=== PATIENT | female | born 1990 | race Caucasian/White ===

== ENCOUNTER 2022-07-16 09:51 | Outpatient (CLI) | payer BC, SELFPAY ==
[2022-07-16 14:24] LABS: TSH With Reflex to FT4* 0.522 uIU/mL (0.270-4.200)
== END 2022-07-16 09:52 | disposition home or self-care (01) ==
PROVIDERS: Visit Provider Registered Nurse
DX: N92.0 Excessive and frequent menstruation with regular cycle (principal)
CPT/HCPCS: 84443

== ENCOUNTER 2022-08-05 10:25 | Outpatient (CLI) | payer BC, SELFPAY ==
--- NOTE | 2022-08-05 10:45 | CRLHL7_ITS ---
For Patients: As a result of the Century Cures Act, medical imaging exams and procedure reports are released immediately into your electronic medical record. You may view this report before your referring provider. If you have questions, please contact your health care provider. INDICATION: 31 year-old female. Menorrhagia. TECHNIQUE: Transabdominal and transvaginal pelvic ultrasound. Grayscale images were acquired of the uterus and ovaries. FINDINGS: The uterus measures 7.5 x 4.8 x 4 cm. The endometrial stripe measures 12.4 mm. This can be normal in a premenopausal female. Small cervical nabothian cysts. The right ovary measures 2.6 x 1.8 x 1.6 cm. The left ovary measures 3.0 x 1.9 x 1.6 cm. Blood flow is identified in the ovaries. Trace free pelvic fluid likely physiologic. IMPRESSION: Normal transabdominal and transvaginal pelvic ultrasound. Dictated by Jesse Griffith MD @ 08/05/2022 11:19:31 AM (Electronically Signed)
== END 2022-08-05 10:26 | disposition home or self-care (01) ==
PROVIDERS: Visit Provider Registered Nurse
DX: N92.0 Excessive and frequent menstruation with regular cycle (principal)
CPT/HCPCS: 76830; 76856

== ENCOUNTER 2022-08-27 09:52 | Outpatient (CLI) | payer BC, SELFPAY | END 2022-08-27 09:53 | disposition home or self-care (01) | LOC: FRMREF 09:52 | PROVIDERS: Visit Provider Family Medicine | DX: Z00.00 Encounter for general adult medical examination without abnormal findings (principal); M32.9 Systemic lupus erythematosus, unspecified | CPT/HCPCS: 80053 ==

== ENCOUNTER 2022-09-15 09:06 | Day surgery (SDC) | payer BC, SELFPAY ==
[2022-09-15] MEDS: SODIUM CHLORIDE 0.9 % (FLUSH) 10 ML SYRINGE IVF (09:25)
[2022-09-15] MEDS: LACTATED RINGERS 1000 ML 1,000 ML 100 ML IV (09:25)
[2022-09-15 09:34] VITALS: BP 123/59; PULSE 87; RESP 16; TEMP 36.6; O2SAT 97; BMI 30.8
--- NOTE | 2022-09-15 09:40 | SUR.PREOP ---
Patient provided home covid negative results to RN.
[2022-09-15 09:47] LABS: Ur HCG Qualitative* Negative (Negative)
--- NOTE | 2022-09-15 09:52 | P.PCN_ITS ---
Procedure Note Time Seen by Provider: 09:52 Date Seen: 09/15/22 Will [facility] bill your pro fee for this procedure?: Yes Procedure: Preoperative diagnosis: 32 yo with menorrhagia and thickened endometrium. Postoperative diagnosis: Same. Suspected polyps and R fundal synechiae Procedure: Hysteroscopy, dilation and curettage, endometrial ablation. Anesthesia: MAC and paracervical block. Surgeon: Taylor Nassar MD Assist: None Estimated blood loss: 30 mL IV Fluid: 800 mL Specimen: Endometrial curettings, sent to path. Findings: On exam under anesthesia: The cervix and vagina appear normal. The uterus was anteverted position, approximately 8 week size, mobile and without masses or nodularity palpable. Adnexa were without mass or fullness palpable bilaterally. On hysteroscopy: multiple polypoid masses and multiple thin and 1 thick synechiae in the right fundus. No other abnormalities noted. The uterus sounded to 9 cm. Cervical length 4 cm. Cavity length: 5 cm. The patient had a severe uterine infection during labor with her 1 child was in the hospital for 10 days for treatment. This uterine infection was the likely cause of the synechiae seen on exam and taken down during the procedure. Procedure: Fiorella was taken to the operating room where conscious sedation was found to be adequate. She was placed in a dorsal lithotomy position and an exam under anesthesia was performed with the findings stated above. She was then prepped and draped in a normal sterile manner. An a bivalve is sterile speculum was placed in the vaginal canal. A paracervical block was placed using 0.5% Marcaine: 10 mL were injected at the 4 and 8 o'clock positions on the cervix. A long Allis clamp was placed on the anterior lip of the cervix. The cervix was then dilated to Hegar 6. the Allis clamp kept pulling off of the cervix so a single-tooth tenaculum was placed. Uterus sounded to 9 cm. The cervix measured for cm. There for the cavity length was 5 cm. The Truclear hysteroscope was advanced into the uterus. A diagnostic hysteroscopy performed with normal saline as the insufflation medium. Findings are stated above. The Truclear incisor was then advanced through the camera. The curettage performed with this incisor. The synechiae were taken down w/ a combination of the Truclear morcellator and hysteroscopic scissors. The curettage took approximately 4 min. The cavity appeared normal once the curettage was performed completed. Total amount of saline used: 2495 mL. Deficit: 215 mL The hysteroscope was removed. The cervix was then dilated to Hegar 8. The Angy device was advanced into the uterus. The cavity check was completed and the ablation took place over 2 min. The Angy was removed, the hysteroscope readvanced to document ablation of the entire cavity. The hysteroscope was then removed. The Allis clamp removed from the anterior lip of the cervix. silver nitrate and 1 figure of 8 suture using 3-0 Vicryl were used to obtain hemostasis The patient tolerated this procedure well. Sponge, lap and instrument counts were correct x2 at the end of the procedure and the patient was taken to the recovery area in stable condition. Patient received 30 mg of Toradol IV and 2 gm of Ancef prior to the procedure.
[2022-09-15 11:40] VITALS: BP 125/74; PULSE 73; RESP 14; TEMP 37.2; O2SAT 96
--- NOTE | 2022-09-15 11:44 | W.ANESCHARGE ---
Anesthesia Charges Start Date/Time Anesthesia Start Date: 09/15/22 Anesthesia Start Time: 10:41 Stop Date/Time Anesthesia Stop Date: 09/15/22 Anesthesia Stop Time: 11:43
[2022-09-15 11:45] VITALS: BP 122/74; PULSE 67; RESP 16; O2SAT 96
[2022-09-15 12:00] VITALS: BP 127/82; PULSE 68; RESP 16; O2SAT 95
[2022-09-15] MEDS: fentaNYL 100 MCG/2 ML inj 50 MCG IVP (12:00)
--- NOTE | 2022-09-15 12:00 | W.ANESCHARGE ---
Anesthesia Charges Start Date/Time Anesthesia Start Date: 09/15/22 Anesthesia Start Time: 10:41 Stop Date/Time Anesthesia Stop Date: 09/15/22 Anesthesia Stop Time: 11:43
[2022-09-15 12:15] VITALS: BP 112/62; PULSE 74; RESP 16; O2SAT 95
== END 2022-09-15 12:32 | disposition home or self-care (01) ==
PROVIDERS: PCP Family Medicine; Visit Provider Obstetrics & Gynecology
PROC: 0UF98ZZ Fragmentation in Uterus, Via Natural or Artificial Opening Endoscopic (ICD-10-PCS; CPT 58563; principal; 2022-09-15 10:30)
DX: N92.0 Excessive and frequent menstruation with regular cycle (principal); R93.89 Abnormal findings on diagnostic imaging of other specified body structures
CPT/HCPCS: 58563; 00952; 81025; J1100; J1885; J2250; J2405; J2704; J3010; J7120

== ENCOUNTER 2023-09-16 11:02 | Outpatient (CLI) | payer BC, SELFPAY | END 2023-09-16 11:03 | disposition home or self-care (01) | PROVIDERS: PCP Family Medicine; Visit Provider Family Medicine | DX: N92.0 Excessive and frequent menstruation with regular cycle (principal); I47.10 Supraventricular tachycardia, unspecified | CPT/HCPCS: 80053; 84443; 87086 ==

== ENCOUNTER 2023-09-28 07:34 | Day surgery (SDC) | payer BC, SELFPAY ==
[2023-09-28] VITALS (20 sets, daily range): BP systolic 110–134; BP diastolic 70–82; PULSE 61–81; RESP 12–18; TEMP 36.3–37.9; O2SAT 97–100; BMI 26.2
--- OUTSIDE RECORDS SUMMARY | 2023-09-28 07:35 | XMS_ITS | Referral Summary ---
Author Name Unknown Organization [facility] Address [address] [place] [address] Care Team Providers Care Open Tenter Operator Name Role Phone Diego Castañeda MD Unavailable Medications Medication Sig Dispensed Refills Start Date End Date Status etonogestrel-ethinyl estradiol (NUVARING) 0.12-0.015 MG/24HR vaginal ringIndications:Abnor mal uterine bleeding NuvaRing 0.12 mg-0.015 mg/24 hr vaginal Insert 1 vaginal ring every month by vaginal route. 3 each 3 06/25/2021 Active Social History Tobacco Use Types Packs/Day Years Used Date Smoking Tobacco: Never Smokeless Tobacco: Never Alcohol Use Standard Drinks/Week Comments Yes 0 (1 standard drink = 0.6 oz pur e alcohol) occ PHQ-2 Answer Date Recorded PHQ-2 Score 1 06/25/2021 Adolescent Education Answer Date Record ed Getting School Help Needed Not on file 02/27 Sex and Gender Information Value Date Recorded Sex Assigned at Not on file Gender Identity Not on file Sexual Orientation Not on file Last Filed Vital Signs Vital Sign Reading Time Taken Comments Blood Pressure 106/84 06/25/2021 10:22 AM RESIDENTIAL SALES EXECUTIVE Pulse 75 06/25/2021 10:22 AM RESIDENTIAL SALES EXECUTIVE Temperature 36.8 ??C (98.3 ??F) 06/25/2021 10:[address] Respiratory Rate 16 06/25/2021 10:22 AM RESIDENTIAL SALES EXECUTIVE Oxygen Saturation 98% 06/25/2021 10:22 AM RESIDENTIAL SALES EXECUTIVE Inhaled Oxygen Concentration - - Weight 84.4 kg (186 lb) 06/25/2021 10:22 AM RESIDENTIAL SALES EXECUTIVE Height 172.7 cm (5' 8) 06/25/2021 10:22 AM RESIDENTIAL SALES EXECUTIVE Body Mass Index 28.28 06/25/2021 10:22 AM RESIDENTIAL SALES EXECUTIVE Plan of Treatment Not on file Procedures Procedure Name Priority Date/Time Associated Diagnosis Comments LAB RESULT - HIM SCAN 08/25/2023 12:00 AM CDT from Last 3 Months Results * LAB RESULT - HIM SCAN (08/25/2023 12:00 AM CDT) 08/25/2023 Provider Outside NON-BEAKER LAB TE STING from Last 3 Months Care Teams Open Tenter Operator Relationship Specialty Start Date End Date Diego Castañeda [place] [address] [place] [address] Assigned PCP 05/29/21
--- OUTSIDE RECORDS SUMMARY | 2023-09-28 07:35 | XMS_ITS | Clinical Summary ---
Author Name Unknown Organization [facility] Address [address] [place] [address] Care Team Providers Care Parts Coordinator Name Role Phone Diego Castañeda MD Unavailable [...] Comments Blood Pressure 106/84 06/25/2021 10:22 AM CAPTAIN ROOM SERVICE Pulse 75 06/25/2021 10:22 AM CAPTAIN ROOM SERVICE Temperature 36.8 ??C (98.3 ??F) 06/25/2021 10:[address] Respiratory Rate 16 06/25/2021 10:22 AM CAPTAIN ROOM SERVICE Oxygen Saturation 98% 06/25/2021 10:22 AM CAPTAIN ROOM SERVICE Inhaled Oxygen Concentration - - Weight 84.4 kg (186 lb) 06/25/2021 10:22 AM CAPTAIN ROOM SERVICE Height 172.7 cm (5' 8) 06/25/2021 10:22 AM CAPTAIN ROOM SERVICE Body Mass Index 28.28 06/25/2021 10:22 AM CAPTAIN ROOM SERVICE Plan of Treatment Health Maintenance Due Date Last Done Comments ADVANCE CARE PLANNING 1989 ANNUAL REVIEW OF HM ORDERS 1989 HIV SCREENING 2004 HEPATITIS C SCREENING 09/02/2007 HEPATITIS B IMMUNIZATION (1 of 3 - 19+ 3-dose series) 2008 DTAP/TDAP/TD IMMUNIZATION (1 - Tdap) 2014 YEARLY PREVENTIVE VISIT 04/07/2022 04/07/20 21, 12/13/2019 PAP 12/12/2022 12/13/2019, 12/13/2019 COVID-19 Vaccine (4 - 2022-2 4 season) 2023 04/09/2021, 09/18/2020, 08/24/2020 INFLUENZA VACCINE (#1) 2023 06/08/2022 PHQ-2 (once per calendar year) 2023 06/25/2021 HPV IMMUNIZATION Aged Out No longer e ligible based on patient's age to complete this topic IPV IMMUNIZATION Aged Out No longer e ligible based on patient's age to complete this topic MENINGITIS IMMUNIZATION Aged Out No l onger eligible based on patient's age to complete this topic Pneumococcal Vaccine: Pediatrics (0 to 5 Years) and At-Risk Patients (6 to 64 Years) Aged Out No longer eligible b ased on patient's age to complete this topic RSV MONOCLONAL ANTIBODY Aged Out No l onger eligible based on patient's age to complete this topic Procedures Procedure Name Priority Date/Time Associated Diagnosis Comments LAB RESULT - HIM SCAN 08/25/2023 12:00 AM CDT from Last 3 Months Results * LAB RESULT - HIM SCAN (08/25/2023 12:00 AM CDT) 08/25/2023 Provider Outside NON-BEAKER LAB TE STING from Last 3 Months Care Teams Parts Coordinator Relationship Specialty Start Date End Date Diego Castañeda [place] [id number] [place] [address] Assigned PCP 05/29/21
--- OUTSIDE RECORDS SUMMARY | 2023-09-28 07:36 | XMS_ITS | Continuity of Care Document ---
Author Name Unknown Organization [facility] Address [address] [place] [address] Phone Care Team Providers Care Bleach Packer Name Role Phone Aditi [facility], Hayder Unavailable Unavailable Allergies, Adverse Reactions, Alerts Substance Reaction Status Criticality trimethoprim Active No Information sulfamethoxazole Active No Informat ion Medications Medication Instructions Dosage Effective Dates (start - stop) Status Comments METHOTREXATE 2.5MG TABLETS - YELLOW TAKE 6 TABLETS BY MOUTH EVERY WEEK - Active folic acid 1 mg tablet take 2 tablet by oral route every morning 2 MG - Active naltrexone 50 mg tablet take 1 tablet by oral route every day 50 MG - Active Wellbutrin XL 150 mg 24 hr tablet, extended release take 1 tablet by oral route every day 150 MG - Active metoprolol succinate ER 25 mg tablet,extended release 24 hr take 1 tablet by oral route every day 25 MG - Active Vitamin D3 25 mcg (1,000 unit) tablet take 1 Tablet by Oral route every day 1 Tablet - Active Procedures Procedure Date Office/Outpatient Visit, Est Routine Venipuncture Assay Of Serum Albumin Assay Of Creatinine Transferase (Ast) (Sgot) Alanine Amino (Alt) (Sgpt) Complete Cbc, Automated Office/Outpatient Visit, Est Routine Venipuncture Assay Of Serum Albumin Assay Of Creatinine Dec-18-2023 Transferase (Ast) (Sgot) Alanine Amino (Alt) (Sgpt) Complete Cbc, Automated Office/Outpatient Visit, Est Routine Venipuncture Specimen Handling Rbc Sed Rate, Automated Assay Of Serum Albumin Assay Of Creatinine Transferase (Ast) (Sgot) Alanine Amino (Alt) (Sgpt) CReactive Protein Antinuclear Antibodies CCP Antibody Rheumatoid Factor, IGM Rheumatoid Factor, IGG, IGA Vitamin D 25 Hydroxy Complete Cbc WAuto Diff Wbc Office/Outpatient Visit, Est Encounter Created In Error Office/Outpatient Visit, New Routine Venipuncture Specimen Handling Rbc Sed Rate, Nonautomated Assay Of Serum Albumin Assay Of Ck (Cpk) Assay Of Creatinine Assay Alkaline Phosphatase Transferase (Ast) (Sgot) Assay Of Blood/Uric Acid CReactive Protein Antinuclear Antibodies CCP Antibody Lyme Disease Antibody Rheumatoid Factor, IGM Rheumatoid Factor, IGG, IGA Vitamin D 25 Hydroxy Assay Of Calcium Complete Cbc, Automated Results Test Name Date and Time Measure Units Reference Range Abnormal Flag Status Comments Panel Description: CBC no diff - [place] Final WBC 4 13:32:00 8.3 K/uL 4.0-10.0 Final RBC 4 13:32:00 4.78 M/uL 3.80-5.80 Final Hemoglobin 4 13:32:00 14.6 g/dL 11.5-16.0 Final Hematocrit 4 13:32:00 45.1 % 37.0-47.0 Final MCV 4 13:32:00 94 fL 80-100 Final MCH 4 13:32:00 30.6 pg 27.0-32.0 Final MCHC 4 13:32:00 32.4 g/dL 32.0-36.0 Final RDW 4 13:32:00 12.5 % 11.0-16.0 Final Platelet Count 4 13:32:00 260 K/uL 150-500 Final MPV 4 13:32:00 7.4 fL 6.0-11.0 Final Panel Description: DMARD Final AST 4 14:07:00 18 U/L 5-34 Final ALT 4 14:07:00 15 IU/L 5-35 Final Creatinine 4 14:07:00 0.740 mg/dL 0.500-1.300 Final ALB 4 14:07:00 4.6 g/dL 3.5-5.3 Final GFR 4 14:07:00 96.1 mL/min/1.7 3 m2 Final Advance Directives Directive Yes / No Effective Date File Name No Information Encounters Encounter Description Practice Location Reason(s) For Visit Diagnoses Date Provider Providers Copied on Encounter Office/Outpa tient Visit, Est [facility] , [address], [place], [address], [place] tel:[phone] [facility] , Inflammatory Polyarthropa thy (chief complaint) Inflammatory polyarthropa thyVitamin D deficiency, unspecifiedC ounselingHig h risk medication monitoringRa 4 Aditi Singletary. [facility] [address], [place], [address], [place]. tel:[phone] Referring Provider: Hayder Lester [facility] [address], [place], [address]. tel:[phone] [facility] , [address], [place], [address], [place] tel:[phone] [facility] , No Information 4 Aditi Singletary. [facility] [address], [place], [address], [place]. tel:[phone] Office/Outpa tient Visit, Est [facility] , [address], [place], [address], [place] tel:[phone] [facility] , Inflammatory Polyarthropa thy (chief complaint) Inflammatory polyarthropa thyVitamin D deficiency, unspecifiedC ounselingHig h risk medication monitoring 3 Aditi Singletary. [facility] [address], [place], [address], [place]. tel:[phone] Referring Provider: Hayder Lester, [facility] [address], [place], [address]. tel:[phone] Office/Outpa tient Visit, Est [facility] , [address], [place], [address], [place] tel:[phone] [facility] , Inflammatory Polyarthropa thy (chief complaint) Inflammatory polyarthropa thyVitamin D deficiency, unspecifiedC ounselingHig h risk medication monitoring 3 Aditi Singletary. [facility] [address], [place], [address], [place]. tel:[phone] Referring Provider: Hayder Lester, [facility] [address], [place], [address]. tel:[phone] Office/Outpa tient Visit, Est [facility] , [address], [place], [address], [place] tel:[phone] [facility] , Costochondri tisPain in unspecified jointVitamin D deficiency, unspecifiedS ystemic lupus erythematosu s, unspecified 0 Darvin Mcintosh. [facility] [address], [place], [address], [place]. tel:[phone] Referring Provider: Arnaldo Yo, [facility] [address], [place], [address]. tel:[phone] [facility] , [address], [place], [address], [place] tel:[phone] [facility] , No Information 0 Darvin Mcintosh. [facility] [address], [place], [address], [place]. tel:[phone] Referring Provider: Arnaldo Yo, [facility] [address], [place], [address]. tel:[phone] Office/Outpa tient Visit, New [facility] , [address], [place], [address], [place] tel:[phone] [facility] , Pain in unspecified jointVitamin D deficiencySy stemic lupus erythematosu s, unspecifiedO ther fatigue 0 Darvin Mcintosh. [facility] [address], [place], [address], [place]. tel:[phone] Referring Provider: Arnaldo Yo, [facility] [address], [place], [address]. tel:[phone] Family History Family Member Type Diagnosis Age At Onset Mother Problem malignant neopla sm of breast in first degree relative Maternal aunt Problem rheumatoid arthritis Father Problem hypertension Payers Payer name Insurance type Covered alliance party ID Jatinder glasgow(s) [facility] [id number] Social History Type Description Quantity Date Captured Comments Alcohol Use Details 1 drink weekly Caffeine Use Details No Tobacco Use Status Current non-smoker Smoking Status Never smoker Non-Smoking Tobacco Use Details : No Details Available : No Details Available Sex Female Vital Signs Date / Time: Height Weight BMI Pulse Rate Blood Pressure Temperature Respiratory Rate Body Surface Area Head Circumference Head Circ. Percentile Wt./Hermelindo. Percentile BMI percentile Pulse Ox Inhaled Ox 12:14 PM 67.00 in 77.111 kg (170.00 lbs) 26.6 3 kg/m eter (2) 108/75 mm[Hg] 97.90 F Chief Complaint And Reason For Visit From encounter dated '08/25/2023 12:15'. Inflammatory Polyarthropathy (chief complaint) Reason For Referral Reason For Referral No Information Plan Of Treatment Date Type Action Status Appointment Fiorella Kumar BOOKED History Of Present Illness Encounter Date Complaint History Of Prese nt Illness Inflammatory Polyarthropathy Inflammatory Polyarthropathy Inflammatory Polyarthropathy Functional Status Date Functional Assessmen t Pain Score 3/10 Instructions Date Instruction Additional Infor mation No Information Assessments Type Assessment Date assessment Inflammatory polyarthropathy Aug assessment Vitamin D deficiency, unspecifie d assessment Counseling assessment High risk medication monitoring assessment Rash Patient Care Teams Name Effective Dates (start - stop) Status Members No Information
--- OUTSIDE RECORDS SUMMARY | 2023-09-28 07:37 | XMS_ITS | Clinical Summary ---
Author Name Unknown Organization [facility] Address [place], [place] [address] Care Team Providers Care Home Office Representative Name Role Phone Valeria Vargas Primary Care Provider Allergies No known active allergies Medications Medication Sig Dispensed Refills Start Date End Date Status etonogestreL-ethiny l estradioL (NuvaRing) vaginal ring Insert 1 ring into the vagina every 4 weeks. Insert 1 ring vaginally and leave in place for 3 consecutive weeks, then remove for 1 week. Repeat with new ring. 3 ring 3 10/10/2020 Active methotrexate (RHEUMATREX) 2.5 mg tablet Take 12.5 mg by mouth once weekly. 0 08/26/2021 Active celecoxib (CELEBREX) 200 mg capsuleIndications: Rheumatoid arthritis, involving unspecified site, unspecified whether rheumatoid factor present (HC) Take by mouth once daily if needed for Pain. 90 Capsule 08/18/2022 Active metoprolol succinate (TOPROL XL) 25 mg Sustained-Release tabletIndications:P AC (premature atrial contraction) Take 1 Tablet (25 mg) by mouth once daily. 90 Tablet 08/05/2023 Active Active Problems Problem Noted Date Diagnosed Date Lupus 04/07/2021 Rheumatoid arthritis 06/14/2020 Encounters Date Type Department Care Team Description 08/05/[address] [id number] Chaparrita Degroot MD Medications 07/27/[address] [phone] Chaparrita Degroot MD Medication Management (Metoprolol ) from Last 3 Months Immunizations Name Administration Dates Next Due COVID-19 vaccine ([employer] 30mcg/0.3mL) GONZALO Calvert 09/18/2020,08/24/2020 Family History Medical History Relation Name Comments Good Health Father No Known Problems Maternal Grandfather No Known Problems Maternal Grandmother Cancer-breast Mother Bone cancer Paternal Grandfather Lorena; s tarted as Bone? Dementia Paternal Grandmother Good Health Sister Relation Name Status Comments Father Maternal Grandfather Maternal Grandmother Mother Paternal Grandfather Paternal Grandmother Alive Sister Social History Tobacco Use Types Packs/Day Years Used Date Smoking Tobacco: Never Smokeless Tobacco: Never Tobacco Cessation:Counseling Given: Not Answered Alcohol Use Standard Drinks/Week Comments Yes 0 (1 standard drink = 0.6 oz pur e alcohol) 1 drink per week PHQ-2 Answer Date Recorded PHQ-2 TOTAL SCORE 0 05/11/2022 Social Connections Answer Date Recorded Frequency of Communication with Friends and Fami ly Not on file 06/07/2021 Financial Resource Strain Answer Date R ecorded Difficulty of Paying Living Expenses Not on file 06/07/2021 Difficulty of Paying Living Expenses Not on file 06/07/2021 Sex and Gender Information Value Date Recorded Sex Assigned at Not on file Gender Identity Not on file Sexual Orientation Not on file Obstetrics History Para Term AB IAB SAB Ectopic Multiple Livin g Live Births 2 1 1 1 Date Outcome GA Total Labor Labor/2nd/3rd Weight Sex Delivery Anes PTL Deborah A1 A5 Name Cl in Para SAB Last Filed Vital Signs Vital Sign Reading Time Taken Comments Blood Pressure 118/72 08/18/2022 1:06 PM CDT Pulse 53 08/18/2022 1:06 PM CDT Temperature - - Respiratory Rate - - Oxygen Saturation 98% 08/18/2022 1:06 PM CDT Inhaled Oxygen Concentration - - Weight 87.2 kg (192 lb 4.8 oz) 08/18/2022 1:06 P M CDT Height 170.2 cm (5' 7) 08/18/2022 1:06 PM CDT Body Mass Index 30.12 08/18/2022 1:06 PM CDT Plan of Treatment Health Maintenance Due Date Last Done Comments Tdap 2000 HIV for age 15-65 2004 Hepatitis C screening for age 18-79 09/02/2007 Tetanus booster 2009 COVID-19 vaccine series ( season) 2023 02/14/2022, 04/09/2021, 09/18/2020, Additional history exists Depression screening for age 12+ 05/11/2023 05/11/2022, 04/07/2021, 10/10/2020, Additional history exists BMI (ht and wt on same day) for age 18+ 08/19/2023 08/18/2022, 05/11/2022, 08/26/2021, Additional history exists Influenza for age 9-49 02/06/2024 Pap test for age 21-65 08/27/2027 , 08/26/2022, 05/21/2020 (Completed outside of [facility]) Pneumococcal series for age 6-64 Aged Out No longer eligible based on patient's age to complete this topic Procedures Procedure Name Priority Date/Time Associated Diagnosis Comments HPV THIN PREP Routine 08/26/2022 11:45 AM CDT from Last 3 Months or Most Recently Relevant to Health Maintenance Results * HPV HIGH RISK (08/26/2022 11:45 AM CDT) TYPE 16 Negative Negative 08/28/2022 2:01 PM CDT [facility] TYPE 18 Negative Negative 08/28/2022 2:01 PM CDT [facility] OTHER HIGH RISK TYPES Negative Negative 08/28/2022 2:01 PM [facility] Other (Cervical) 08/26/2022 11:45 AM CDT 08/26/2022 6:00 PM [facility]T [facility] 08/28/2022 2:01 PM CDT HPV types 16, 18, 31, 33, 35, 39, 45, 51, 52, 56, 58, 59, 66 and 68 DNA were undetectable or below the pre-set threshold. Methodology: [email or web address] 4800 HPV Test Taylor Nassar MD [facility] [address] [place] [address], from Last 3 Months or Most Recently Relevant to Health Maintenance Care Teams Home Office Representative Relationship Specialty Start [place] [address] [place] [address] PCP - General Physician Sustainable Landscape Architect 05/13/23
--- OUTSIDE RECORDS SUMMARY | 2023-09-28 07:37 | XMS_ITS | Continuity of Care Document ---
Author Name Unknown Organization [facility] Address [address] [address] [place] [address] Phone Care Team Providers Care Mrb Engineer Name Role Phone Shantanu Oliver MD, Bruno Stein Advance Directives Directive Yes / No Effective Date File Name No Information Encounters Encounter Description Practice Location Reason(s) For Visit Diagnoses Date Provider Providers Copied on Encounter [facility], [address] [address], [place], [place], [id number], [place] tel:[phone] [facility] No Information Shantanu Carr. [address] [facility], [facility] [address], [place], [place], [id number], [place]. tel:[phone] Family History Family Member Type Diagnosis Age At Onset No Information Payers Payer name Insurance type Covered constitution party ID Authoriza tion(s) No Information Social History Type Description Quantity Date Captured Comments Sex Female Smoking Status No Information Chief Complaint And Reason For Visit No Information Reason For Referral Reason For Referral No Information Plan Of Treatment Date Type Action Status Appointment Fiorella Kumar BOOKED History Of Present Illness Encounter Date Complaint History Of Prese nt Illness No Information Functional Status Date Functional Assessmen t No Information Instructions Date Instruction Additional Infor mation No Information Assessments Type Assessment Date No Information Patient Care Teams Name Effective Dates (start - stop) Status Members No Information
--- OUTSIDE RECORDS SUMMARY | 2023-09-28 07:37 | XMS_ITS | Continuity of Care Document ---
Author Name Unknown Organization [facility] Address [address] [place] [address] Phone Care Team Providers Care Data Transcriber Name Role Phone MD STEFAN, MARION BOB Unavailable Unavai lable Procedures Procedure Date REPEAT ULTRASOUND STRAIGHTFORWARD OUTPT CONSULT 7 COMPLETE OB US Advance Directives Directive Yes / No Effective Date File Name No Information Encounters Encounter Description Practice Location Reason(s) For Visit Diagnoses Date Provider Providers Copied on Encounter [facility] [address], [place], [address], [place] tel:[phone] [facility] 32 weeks gestation of pregnancyUterin e size-date discrepancy, third trimesterOth diseases and conditions compl preg/chldbrthSy stemic lupus erythematosus, unspecified 7 MD MARION AVILES. [address], [place], [place], [id number] , [place]. tel: [phone] Referring Provider: JAQUELINE LEROY, [id number] [facility] [address] [facility] [address], [place], [address]. tel:[phone] STRAIGHTFORWARD OUTPT CONSULT [facility] [address], [place], [address], [place] tel:[phone] [facility] Maternal Systemic LupusSystemic lupus erythematosus, unspecifiedMate rnal Cardiovascular DiseaseOth diseases and conditions compl preg/chldbrthSy stemic lupus erythematosus, unspecifiedEnco unter for screening of weeks gestation of 0-201 7 MD Gabriel NYE. [address] [facility], [place], [place], [id number] , [place]. tel: [phone] Referring Provider: JAQUELINE LEROY, [address] [facility] [address], [place], [address]. tel:[phone] Family History Family Member Type Diagnosis Age At Onset No Information Payers Payer name Insurance type Covered constitution party ID Authoriza tilauren(s) [facility] POS [id number] CI [id number] Social History Type Description Quantity Date Captured Comments Sex Female Smoking Status No Information Chief Complaint And Reason For Visit No Information History Of Present Illness Encounter Date Complaint History Of Prese nt Illness No Information Instructions Date Instruction Additional Infor mation No Information Assessments Type Assessment Date No Information
--- OUTSIDE RECORDS SUMMARY | 2023-09-28 07:37 | XMS_ITS | Continuity of Care Document ---
Author Name Unknown Organization [facility] Address [address] [place] [address] Phone Care Team Providers Care Anatomy And Physiology Instructor Name Role Phone MD STEFAN, MARION BOB Unavailable Unavai lable Procedures Procedure Date REPEAT ULTRASOUND STRAIGHTFORWARD OUTPT CONSULT 7 COMPLETE OB US Advance Directives Directive Yes / No Effective Date File Name No Information Encounters Encounter Description Practice Location Reason(s) For Visit Diagnoses Date Provider Providers Copied on Encounter [facility] [address], [place], [address], [place] tel:[phone] [facility] [place] 32 weeks gestation of pregnancyUterin e size-date discrepancy, third trimesterOth diseases and conditions compl preg/chldbrthSy stemic lupus erythematosus, unspecified 7 MD MARION AVILES. [address], [place], [place], [id number] , [place]. tel: [phone] Referring Provider: JAQUELINE LEROY, [address] [facility] [address] [facility] [[email or web address] [address], [place], [address]. tel:[phone] STRAIGHTFORWARD OUTPT CONSULT [facility], [address], [place], [address], [place] tel:[phone] [facility] [place] Maternal Systemic LupusSystemic lupus erythematosus, unspecifiedMate rnal Cardiovascular DiseaseOth diseases and conditions compl preg/chldbrthSy stemic lupus erythematosus, unspecifiedEnco unter for screening of fnuvag92 weeks gestation of 0-201 7 MD Gabriel NYE. [address] [facility], [place], [place], [id number] , [place]. tel: [phone] Referring Provider: JAQUELINE LEROY, [address] [facility] [address], [place], [address]. tel:[phone] Family History Family Member Type Diagnosis Age At Onset No Information Payers Payer name Insurance type Covered libertarian ID Authoriza tilauren(s) [facility] POS [id number] CI [id number] Social History Type Description Quantity Date Captured Comments Sex Female Smoking Status No Information Chief Complaint And Reason For Visit No Information History Of Present Illness Encounter Date Complaint History Of Prese nt Illness No Information Instructions Date Instruction Additional Infor mation No Information Assessments Type Assessment Date No Information
--- OUTSIDE RECORDS SUMMARY | 2023-09-28 07:37 | XMS_ITS | Continuity of Care Document ---
Author Name Unknown Organization [facility] Address [address] [place] [address] Phone Care Team Providers Care Active Directory Architect Name Role Phone Aditi KAISER, Hayder Unavailable [...] route every morning 2 MG - Active Vitamin D3 25 mcg (1,000 unit) tablet take 1 Tablet by Oral route every day 1 Tablet - Active metoprolol succinate ER 25 mg tablet,extended release 24 hr take 1 tablet by oral route every day 25 MG - Active Wellbutrin XL 150 mg 24 hr tablet, extended release take 1 tablet by oral route every day 150 MG - Active naltrexone 50 mg tablet take 1 tablet by oral route every day 50 MG - Active Procedures Procedure Date Office/Outpatient Visit, [...] [address], [place], [address], [place] tel:[phone] [facility] , Inflammatory Polyarthropa thy (chief complaint) Inflammatory polyarthropa thyVitamin D deficiency, unspecifiedC ounselingHig h risk medication monitoringRa 4 Aditi Singletary. [facility] [address], [place], [address], [place]. tel:[phone] Referring Provider: Hayder Lester [facility] [address], [place], [address]. tel:[phone] [facility] , [address], [place], [address], [place] tel:[phone] [facility] , No Information 4 Aditi Singletary. [facility] [address], [place], [address], [place]. tel:[phone] Office/Outpa tient Visit, Est [facility] , [address], [place], [address], [place] tel:[phone] [facility] , Inflammatory Polyarthropa thy (chief complaint) Inflammatory polyarthropa thyVitamin D deficiency, unspecifiedC ounselingHig h risk medication monitoring 3 Aditi Singletary. [facility] [address], [place], [address], [place]. tel:[phone] Referring Provider: Hayder Lester, [facility] [address], [place], [address]. tel:[phone] Office/Outpa tient Visit, Est [facility] , [address], [place], [address], [place] tel:[phone] [facility] , Inflammatory Polyarthropa thy (chief complaint) Inflammatory polyarthropa thyVitamin D deficiency, unspecifiedC ounselingHig h risk medication monitoring 3 Aditi Singletary. [facility] [address], [place], [address], [place]. tel:[phone] Referring Provider: Hayder Lester, [facility] [address], [place], [address]. tel:[phone] Office/Outpa tient Visit, Est [facility] , [address], [place], [address], [place] tel:[phone] [facility] , Costochondri tisPain in unspecified jointVitamin D deficiency, unspecifiedS ystemic lupus erythematosu s, unspecified 0 Darvin Mcintosh. [facility] [address], [place], [address], [place]. tel:[phone] Referring Provider: Arnaldo Yo, [facility] [address], [place], [address]. tel:[phone] [facility] , [address], [place], [address], [place] tel:[phone] [facility] , No Information 0 Darvin Mcintosh. [facility] [address], [place], [address], [place]. tel:[phone] Referring Provider: Arnaldo Yo, [facility] [address], [place], [address]. tel:[phone] Office/Outpa tient Visit, New [facility] , [address], [place], [address], [place] tel:[phone] [facility] , Pain in unspecified jointVitamin D deficiencySy stemic lupus erythematosu s, unspecifiedO ther fatigue 0 Darvin Mcintosh. [facility] [address], [place], [address], [place]. tel:[phone] Referring Provider: Arnaldo Yo, [facility] [address], [place], [address]. tel:[phone] Family History Family Member Type Diagnosis Age At Onset Mother Problem malignant neopla sm of breast in first degree relative Maternal aunt Problem rheumatoid arthritis Father Problem hypertension Payers Payer name Insurance type Covered alliance party ID Jatinder glasgow(s) [facility] [id number] Social History Type Description Quantity Date Captured [...]
[2023-09-28] MEDS: LACTATED RINGERS 1000 ML 1,000 ML 100 ML IV ×2 (07:40→09:52)
[2023-09-28 08:04] LABS: Ur HCG Qualitative* Negative (Negative)
[2023-09-28] MEDS: SODIUM CHLORIDE 0.9 % (FLUSH) 10 ML SYRINGE IVF (08:19)
[2023-09-28] MEDS: SCOPOLAMINE 1 MG/3 DAY PATCH 1 PATCH TRANSDERMA (08:42)
--- NOTE | 2023-09-28 09:02 | PM.PROC ---
Procedure Note Time Seen by Provider: 12:33 Date Seen: 09/28/23 Provider Contact Time: 09:02 Date of procedure: 09/28/23 Will [facility] bill your pro fee for this procedure?: Yes Procedure: Preoperative diagnosis: 33-year-old 1 para 1 irregular and heavy menstrual bleeding, dysmenorrhea Postoperative diagnosis: Same, endometriosis Procedure: Total laparoscopic hysterectomy, bilateral salpingectomy, diagnostic cystoscopy. Consulting surgeon performed: Lysis of adhesions, proctoscopy Anesthesia: General endotracheal, local Surgeon: Taylor Nassar MD Assist: Chasity Bowling MD Consulting surgeon: Michelle Medina MD Estimated blood loss: 100 mL. IV Fluid: 1700mL Urine output: 300 mL Drains: Fields to gravity Specimen: Uterus and bilateral fallopian tubes to pathology. Findings: On exam under anesthesia: The uterus was retroverted, approximately eat week size, mobile without nodularity or masses palpable. Adnexa without mass or fullness palpable. On laparoscopy: The serosa of the uterus and posterior cul-de-sac had multiple powder cummins and blebs consistent with endometriosis. Both ovaries appeared normal. There was a corpus luteum cyst on the right ovary. Liver, gallbladder and appendix appeared normal. The rectum was adherent to the posterior vaginal canal to the level of the uterosacral ligaments and these adhesions were taken down by Dr. Michelle Medina MD. Procedure: Fiorella was taken to the operating room where general anesthetic was found to be adequate. She was placed in the dorsal lithotomy position and an exam under anesthesia was performed with findings stated above. She was then prepped and draped in a normal sterile manner. A Fields catheter was placed. A bivalve speculum was placed in the vaginal canal. A long Allis clamp was placed on the anterior lip of the cervix, in the uterus sounded to [] cm. A [size] VCare uterine manipulator was then placed. The Allis clamp and speculum were removed from the cervix. Attention was then turned to performing the laparoscopic portion of the procedure. All incisions were infiltrated with 0.25% Marcaine prior to incising the skin. A vertical, infraumbilical 1 cm incision was made. An 11 mm trocar was then placed under direct visualization. The abdomen was then insufflated with CO2 gas to a pressure of 15 mm of mercury. Two,, pelvic ports were then placed approximately 3-4 finger breaths medial to the ischial crests. The trocar in the RLQ = 5mm, LLQ = 11mm. These were placed under direct visualization. Attention was then turned to performing the hysterectomy. Both ureters were visualized in the normal position bilaterally. The left fallopian tube was grasped and removed with sequential pedicles using the dissecting, PowerSeal blunt tip dissecting forceps. The left side of the hysterectomy was performed using the PowerSeal dissecting forceps. The 1st pedicles were starting with the broad ligament that was cauterized and and bisected. In sequence show pedicles were formed to divide the utero-ovarian ligament. Then sequential pedicles were made through the broad ligament. Prior to the posterior leaf of the broad ligament being taken down the general surgeon was consulted to perform a lysis of adhesions to remove the rectum from the posterior vaginal canal so that the posterior cuff could be performed safely. Please see Dr. Medina's note for complete details. The posterior leaf of the broad ligament was then divided and sequential pedicles carried down to the level of the VCare cup. The anterior leaf of the broad ligament was then divided down to the level of the anterior aspect of the VCare cup and a bladder flap created. The uterine vessels were then skeletonized. The uterine vessels were then cauterized and divided. Then excess tissue was cleared over the top of the VCare cup using the dissecting forceps. The right salpingectomy and right side of the hysterectomy were then performed in a similar manner. The Ligasure Valleylab pen with the spatula attachment was then used to perform the colpotomy incising around the VCare cup. The uterus was removed and the fundus placed in the vaginal canal to maintain insufflation. The vaginal cuff was then reapproximated using 2-0 V lock suture in a running manner. All the pedicles and vaginal cuff were then closely visualized and hemostasis obtained with bipolar cautery using the PowerSeal dissecting forceps or the Valleylab pen with the spatula. The the uterus was removed from the vaginal canal and sent to pathology. The Fields catheter was briefly removed. A diagnostic cystoscopy was performed using normal saline as the insufflation medium. The dome of the bladder was noted to be without injury and no evidence of any sutures from the vaginal cuff causing injury. Normal urine flow was noted through both ureteral orifices. Fluorescein IV was used to visualize the urine more easily. The Fields catheter was then replaced. Attention was then returned to the abdomen where hemostasis was verified. Dianelys was applied to the vaginal cuff. The CO2 pressure decreased to 8mmHG and hemostasis verified. The fascia in the LLQ incision was approximated with 0-Vicryl suture using the Aniceto Aguilar fascial closure device. This was closed under direct visualization with the laparoscope. The fascia in the umbilical incision was reapproximated using 0 Vicryl on a UR 6 needle. All trocars were removed under direct visualization. CO2 gas was allowed to escape the infraumbilical port prior to its removal. All skin incisions were re-approximated using 4-0 Monocryl in a running subcuticular manner, Exofin skin adhesive gel and adhesive bandages placed. The patient tolerated this procedure well. Sponge, lap and instrument counts were correct x2 at the end of the procedure and the patient was taken to the recovery area in stable condition. The patient received 2gm IV ancef prior to the start of the procedure. After the proctoscopy the patient was dosed with a 2nd dose Ancef 2 g IV and 900 mg clindamycin IV.
--- NOTE | 2023-09-28 09:02 | W.PM.H&PU ---
History & Physical Update History & Physical Update H&P Reviewed and patient assessed: No changes noted
[2023-09-28] MEDS: CEFAZOLIN 2 GM INJ IVP ×2 (09:05→11:15)
[2023-09-28] MEDS: BUPIVACAINE 0.5% 30 ML 14 ML INJECTION (11:00)
[2023-09-28] MEDS: CLINDAMYCIN 900 MG/50 ML-D5W 900 MG/50 ML PIGGYBACK 100 MG IVPB (11:15)
--- NOTE | 2023-09-28 11:55 | P.NB_ITS ---
Nerve Block Nerve Block Time Seen by Provider: 09:00 Date Seen: 09/28/23 Type of block requested by surgeon for post-operative analgesia: TAP Side: bilateral Time out performed: Yes Verification of patient name: Yes Verification of date of : Yes Site marking: site marked Name of person performing procedure: Everett Continuous monitoring Was continuous monitoring of O2 sat, B/P, registered nurse cardiac, recorded every 15 minutes?: Yes Procedure Checklist: sterile prep, needles and gloves Ultrasound guided. Images saved: Yes Medications given in 5ml increments after negative aspiration: Marcaine %: 0.25 mL: 30 Needle gauge: 20 and Exparel mL: 10 Patient tolerated procedure well: Yes Additional comments: Needle noted between internal oblique and transversus abdominus. Local spread visualized Block Charges Block Charge (with Pro Fee): TAP Bilateral Use of Ultrasound Machine for Block: Yes- US Guidance/pain block
--- NOTE | 2023-09-28 11:55 | W.ANESCHARGE ---
Anesthesia Charges Start Date/Time Anesthesia Start Date: 09/28/23 Anesthesia Start Time: 08:57 Stop Date/Time Anesthesia Stop Date: 09/28/23 Anesthesia Stop Time: 12:45
--- NOTE | 2023-09-28 12:04 | PM.GSPRC ---
Operative Note Date of procedure: 09/28/23 Pre-op diagnosis: Menometrorrhagia Post-op diagnosis: Same Type of Procedure: 1. Lysis of adhesions 2. Proctoscopy Indications: Patient is a 33-year-old female undergoing a laparoscopic hysterectomy by Dr. Camila Spring. I was asked the in for an intraoperative consultation. Procedure Description: Patient was intubated, in lithotomy position on the operating room table with laparoscopic equipment on the field. Evidence of uterus, bilateral fallopian tube and ovaries in place. The posterior aspect of the vagina was adhered the anterior wall of the rectum. This was palpated, very firm and dense with adhesions. Using the laparoscopic scissors I sharply dissected adhesions on the right lateral aspect of the rectum. On the anterior aspect there was no clear plane identified. Just above the rectum and into the cervical cuff I sharply dissected the tissue and attempted to develop a plane. No plane was easily developed. I continued dissecting the peritoneum on the left lateral aspect of the rectum. This dissection was carried bluntly into the pelvis. Sharp dissection allowed for the distal rectum to be mobilized about 1 cm off of the anterior abdominal wall. Due to difficulty with the dissection the decision was made for a proctoscopy to be performed. I then scrubbed out and placed the proctoscope into the rectum. With Dr. Camila Spring applying occlusion on the proximal aspect of the sigmoid I was able to insufflate the rectum. With insufflation the path of the rectum into the pelvis was easily identified. The distal rectum was attached to the posterior aspect of the vagina. There was a large amount of liquid stool present within the colon. The tissue I was able to visualize was very healthy in appearance. No mass was identified. There was no blood within the rectal canal or evidence of injury. The decision was made to not perform any further dissection of the rectum, secondary to possibility of colonic injury given the denes adhesions present. I then scrubbed out of the procedure and allowed Dr. Camila Spring to complete her portion of the case. Findings: Densely adherent anterior wall of the rectum to the posterior vaginal wall. Adhesions likely secondary to endometriosis. Proctoscopy performed with no evidence of injury and no mass identified. Anesthesia: GETA Surgeon: Michelle Medina MD Estimated blood loss (mL): 0 Condition: stable Disposition: PACU
--- NOTE | 2023-09-28 12:59 | W.ANESCHARGE ---
Anesthesia Charges Start Date/Time Anesthesia Start Date: 09/28/23 Anesthesia Start Time: 08:57 Stop Date/Time Anesthesia Stop Date: 09/28/23 Anesthesia Stop Time: 12:45
[2023-09-28] MEDS: fentaNYL 100 MCG/2 ML inj 50 MCG IVP (13:10)
[2023-09-28] MEDS: LACTATED RINGERS 1000 ML 1,000 ML 125 ML IV (14:12)
[2023-09-28] MEDS: PROMETHAZINE 25 MG/ML INJ 12.5 MG IV (14:26)
[2023-09-28] MEDS: OXYCODONE 5 MG TABLET PO ×2 (14:26→19:32)
[2023-09-28 17:03] LABS: Hemoglobin* 14.1 gm/dL (12.0-16.0)
[2023-09-28] MEDS: KETOROLAC 30 MG/ML inj IVP (18:06)
[2023-09-28] MEDS: ACETAMINOPHEN 325 MG TABLET 650 MG PO (19:32)
[2023-09-28] MEDS: SIMETHICONE 80 MG TAB.CHEW 160 MG PO (19:38)
[2023-09-29 00:12] VITALS: BP 113/76; PULSE 68; RESP 16; TEMP 37.2; O2SAT 96
[2023-09-29] MEDS: KETOROLAC 30 MG/ML inj IVP (00:14)
[2023-09-29] MEDS: SIMETHICONE 80 MG TAB.CHEW 160 MG PO ×3 (00:14→10:31)
[2023-09-29 05:24] VITALS: BP 115/69; PULSE 70; RESP 16; TEMP 36.9; O2SAT 97
[2023-09-29 05:26] LABS: Hemoglobin* 11.4 gm/dL (12.0-16.0)
[2023-09-29] MEDS: ACETAMINOPHEN 325 MG TABLET 650 MG PO ×2 (06:53→10:31)
[2023-09-29] MEDS: OXYCODONE 5 MG TABLET PO ×2 (06:53→10:30)
--- NOTE | 2023-09-29 06:59 | PC.NURSE ---
[id number]: Patient pleasant and cooperative. 4 lap sites TERESITA and C/D/I. Ambulated in phelps x1. PRN medication for pain management. Active ice to op site. Afebrile. Fields removed at 0530. Patient has not yet urinated.
[2023-09-29 07:56] VITALS: BP 125/80; PULSE 74; RESP 16; TEMP 36.8; O2SAT 97
--- NOTE | 2023-09-29 08:02 | P.DS_ITS ---
DS: Providers Provider Time Seen by Provider: 07:35 Date Seen: 09/29/23 Primary care physician: Magy Vaca MD Attending Physician on discharge: Taylor Nassar MD PRESSURISED CONTAINER FILLER-Discharge Summary Hospital Course Hospital Course Narrative: Patient is a 33 year old admitted on 09/28/23 for postoperative care following total laparoscopic hysterectomy, bilateral salpingectomy, lysis of adhesions, diagnostic cystoscopy and proctoscopy.. Indication for surgery: Abnormal uterine bleeding. Intraoperative findings were notable for endometriosis and adhesive disease particularly between the posterior cul-de-sac/uterosacral ligaments to the colon and rectum. Please see Drs. Nassar and Adam's notes for complete details. She had an uncomplicated surgery. Postoperative course has been uneventful. Vitals have been stable. She had an isolated elevated temperature within 8 hours of surgery, asymptomatic and resolved. She has otherwise remained afebrile. Intraoperative findings were discussed in detail. Specifically, reviewed the role of general surgery for lyses of adhesions. Discussed there is likely residual endometriosis at the rectovaginal septum, where we recommend further imaging with a CT abdomen and pelvis following her 2 week postop visit. In addition, I explained that she will likely need endometriosis suppression moving forward and signs/symptoms of residual endometriosis. Today, on postoperative day 1, she reports the pain is well controlled on NSAIDs, Tylenol and oxycodone p.r.n. She has been able to ambulate Without difficulty. She is tolerating regular diet without nausea and vomiting. She is passing flatus. Fields catheter has been removed, and she is voiding without difficulty. Notes minimal vaginal bleeding. Time Spent with Patient Time attestation: Total time spent providing and/or coordinating discharge services: Time spent: Less than 30 minutes PRESSURISED CONTAINER FILLER - Exam Physical Exam: Vital signs: Temp Pulse Resp BP Pulse Ox O2 Del Method 98.2 F 74 16 125/80 97 Room Air 09/29/23 07:56 09/29/23 07:56 09/29/23 07:56 09/29/23 07:56 09/29/23 07:56 09/29/23 07:56 Narrative: General: Alert and oriented, in no acute distress Abdomen: Soft, nondistended. Mild tenderness to palpation in the lower abdomen, consistent with postoperative state. No rebound or guarding. Incisions are well approximated, with overlying surgical glue noted. No peripheral erythema or ecchymosis. Labs: Hemoglobin 11.4 from 14.1 Urine output: Adequate with 1150mL output overnight PRESSURISED CONTAINER FILLER - DS: Data Data Completed and Pending Labs on day of discharge: Labs from last 24 hours 09/29/23 09/28/23 09/28/23 05:20 Unknown 08:15 Hgb 11.4 L 14.1 Urine HCG, Qual Negative Blood Type O Negative Antibody Screen NEGATIVE Procedures Procedures: Procedures Operation Date: 09/28/23 08:45 Actual Procedure Side Surgeon p M/S-Total Laparoscopic Hysterectomy, Bilateral Salpingectomy, Diagnostic Cystoscopy Taylor Nassar MD s Lysis of adhesions and proctoscopy Michelle Medina MD Discharge Plan Discharge Disposition: Home w/ Parent or Adult Discharging Surgeon: Chasity Bowling Follow-Up Appointment: 2-[address] Bowling Prescriptions: New docusate sodium 100 mg Capsule 100 mg PO BID PRN (Reason: Constipation) Qty: 100 0RF ibuprofen 600 mg Tablet 600 mg PO Q6H Qty: 30 0RF oxycodone 5 mg Tablet 5 mg PO 3XD PRN (Reason: Moderate Pain) Qty: 21 0RF Continued metoprolol succinate 25 mg tablet extended release 24 hr 25 mg PO DAILY methotrexate sodium 2.5 mg tablet 15 mg PO QWEEK multivitamin [Multiple Vitamins] Tablet 1 tab PO QAM bupropion HCl [Wellbutrin XL] 300 mg tablet extended release 24 hr 300 mg PO QAM Qty: 90 3RF Held naltrexone 50 mg tablet 50 mg PO QDAY 30 Days Qty: 90 3RF Hold Instructions: Resume on 10/06/23. Discontinued ibuprofen 600 mg tablet 600 mg PO Q6H PRNQty: 30 0RF Discharge Diet: Regular Patient Instructions: Endometriosis (GEN), Laparoscopic Hysterectomy (DC) Additional Instructions: ACTIVITY RESTRICTIONS: Nothing vaginally for 6 weeks: no tampons/intercourse No driving while taking narcotic pain medication during the day. 1-2 weeks. Lifting restriction: Maximum of 20 pounds for 4 weeks. High impact or core exercises: 4 weeks. Submerge the incisions in water (bath/pool/velazquez): 2 weeks. Off of work/school for a minimum of 4 weeks NO RESTRICTIONS for: Walking Going up/down stairs Showering Passenger in a motorized vehicle Symptoms to report to your doctor Bleeding that is red, like a moderate period Pain not relieved by prescribed medication Fever above 100.4 degrees Fahrenheit A foul vaginal odor Persistent nausea/vomiting Decrease in urination or painful, frequent urinating Chest pain Shortness of breath ? Tenderness or pain with redness and/swelling in the calf(s) of your leg Follow-up Appointments: 1. [facility] in 2-3 weeks for an incision check. 2. A 6 week postop visit to verify that the vaginal cuff is well-healed. Follow-up: [facility] [Provider Group] Taylor Nassar MD [Staff Physician] - Magy Vaca MD [Primary Care Provider] - Discharge Orders: Discharge Order (Routine); Ordered 09/29/23 Ordered By: Chasity Bowling
== END 2023-09-29 11:02 | disposition home or self-care (01) ==
LOC: OR 07:34 → MEDSURG 07:37
PROVIDERS: Surgery; PCP Family Medicine; Visit Provider Obstetrics & Gynecology
PROC: 0UT94ZZ Resection of Uterus, Percutaneous Endoscopic Approach (ICD-10-PCS; CPT 58571; principal; 2023-09-28 08:45)
PROC: (CPT 49000; 2023-09-28 08:45)
DX: N92.1 Excessive and frequent menstruation with irregular cycle (principal); N92.0 Excessive and frequent menstruation with regular cycle; N94.6 Dysmenorrhea, unspecified; N80.9 Endometriosis, unspecified; N73.6 Female pelvic peritoneal adhesions (postinfective); N83.11 Corpus luteum cyst of right ovary; G89.18 Other acute postprocedural pain
CPT/HCPCS: 58571; 49329; 45300; 00840; 36415; 64488; 76942; 81025; 85018; 86850; 86900; 86901; 88307; A9270; C9290; J0330; J0665; J0690; J0736; J1100; J1170; J1200; J1630; J1885; J2250; J2405; J2550; J2704; J3010; J3490; J7120

== ENCOUNTER 2023-10-08 09:22 | Outpatient (CLI) | payer BC, SELFPAY ==
--- OUTSIDE RECORDS SUMMARY | 2023-10-08 09:25 | XMS_ITS | Clinical Summary ---
Author Name Unknown Organization [facility] Address [address] [place] [address] Care Team Providers Care Cook Chill Technician Name Role Phone Diego Castañeda MD Unavailable [...] Comments Blood Pressure 106/84 06/25/2021 10:22 AM FILM DRYING MACHINE OPERATOR Pulse 75 06/25/2021 10:22 AM FILM DRYING MACHINE OPERATOR Temperature 36.8 ??C (98.3 ??F) 06/25/2021 10:[address] Respiratory Rate 16 06/25/2021 10:22 AM FILM DRYING MACHINE OPERATOR Oxygen Saturation 98% 06/25/2021 10:22 AM FILM DRYING MACHINE OPERATOR Inhaled Oxygen Concentration - - Weight 84.4 kg (186 lb) 06/25/2021 10:22 AM FILM DRYING MACHINE OPERATOR Height 172.7 cm (5' 8) 06/25/2021 10:22 AM FILM DRYING MACHINE OPERATOR Body Mass Index 28.28 06/25/2021 10:22 AM FILM DRYING MACHINE OPERATOR Plan of Treatment Health Maintenance Due Date [...] STING from Last 3 Months Care Teams Cook Chill Technician Relationship Specialty Start Date End Date Diego Castañeda [place] [address] [place] [address] Assigned PCP 05/29/21
--- OUTSIDE RECORDS SUMMARY | 2023-10-08 09:25 | XMS_ITS | Referral Summary ---
Author Name Unknown Organization [facility] Address [address] [place] [address] Care Team Providers Care Sys Dir Name Role Phone Diego Castañeda MD Unavailable [...] Comments Blood Pressure 106/84 06/25/2021 10:22 AM MACHINE WHITENER Pulse 75 06/25/2021 10:22 AM MACHINE WHITENER Temperature 36.8 ??C (98.3 ??F) 06/25/2021 10:[address] Respiratory Rate 16 06/25/2021 10:22 AM MACHINE WHITENER Oxygen Saturation 98% 06/25/2021 10:22 AM MACHINE WHITENER Inhaled Oxygen Concentration - - Weight 84.4 kg (186 lb) 06/25/2021 10:22 AM MACHINE WHITENER Height 172.7 cm (5' 8) 06/25/2021 10:22 AM MACHINE WHITENER Body Mass Index 28.28 06/25/2021 10:22 AM MACHINE WHITENER Plan of Treatment Not on file Procedures Procedure Name Priority Date/Time Associated Diagnosis Comments LAB RESULT - HIM SCAN 08/25/2023 12:00 AM CDT from Last 3 Months Results * LAB RESULT - HIM SCAN (08/25/2023 12:00 AM CDT) 08/25/2023 Provider Outside NON-BEAKER LAB TE STING from Last 3 Months Care Teams Sys Dir Relationship Specialty Start Date End Date Diego Castañeda [place] [address] [place] [address] Assigned PCP 05/29/21
--- OUTSIDE RECORDS SUMMARY | 2023-10-08 09:26 | XMS_ITS | Clinical Summary ---
Author Name Unknown Organization [facility] Address [place], [place] [address] Care Team Providers Care Corn Picker Name Role Phone Valeria Vargas Primary Care [...] Encounters Date Type Department Care Team Description 09/28/2023 Lab Requisition [facility] [phone] Taylor Nassar MD 08/05/[address] [address] Chaparrita Degroot MD Medications 07/27/[address] [address] Chaparrita Degroot MD Medication Management (Metoprolol ) from Last 3 Months Immunizations Name Administration Dates Next Due COVID-19 vaccine (Kites-BioNTInGaugeIt 30mcg/0.3mL) GONZALO Calvert 09/18/2020,08/24/2020 Family History Medical [...] 09/02/2007 Tetanus booster 2009 COVID-19 vaccine series (2022- season) 2023 02/14/2022, 04/09/2021, 09/18/2020, Additional history [...] Procedure Name Priority Date/Time Associated Diagnosis Comments PATH TISSUE EXAM Routine 09/28/2023 10:0 5 AM CDT LAB TRACKING EVENT Routine 09/28/2023 9: 56 AM CDT HPV THIN PREP Routine 08/26/2022 11:45 AM CDT from Last 3 Months or Most Recently Relevant to Health Maintenance Results * PATH TISSUE EXAM (09/28/2023 10:05 AM CDT) Case Report Pathology Report ?Case: [id number] ? Authorizing Provider: ??Taylor Nassar ?Collected: ? 09/28/2023 1005 ? MD Chasity ? Ordering Location: ? [facility] ?Received: ?09/29/2023 0800 ? Pathologist: ? Leticia Gilbert MD ? Specimens: ?? A) - Bilateral Fallopian Tubes ? B) - Uterus and Cervix ? 09/30/2023 5:54 PM CDT [facility] ([facility]) LABORATORY-C ENTRAL LABORATORY Final Diagnosis A) BILATERAL FALLOPIAN TUBES, BILATERAL SALPINGECTOMY: 1. Bilateral fimbriated fallopian tubes with no significant histologic abnormality 2. Negative for malignancy B) UTERUS WITH CERVIX, TOTAL HYSTERECTOMY: 1. Cervix: No significant histologic abnormality 2. Endometrium: Inactive endometrium in a background of ablation related changes 3. Myometrium: Unremarkable 4. Uterine serosa: Adhesions (mild) 5. Uterine weight: 58 grams 6. Negative for malignancy 09/30/2023 5:54 PM CDT [facility]- ENTRAL LABORATORY Clinical Information Menometrorrhagia and thickened endometrium, failed ablation. 09/30/2023 5:54 PM CDT [facility] Gross Description A) Received in formalin, labeled with the patient's name and bilateral fallopian tubes, are 2 unoriented fimbriated fallopian tubes, which are 8.5 cm in length by 0.7 cm diameter and 9.2 cm length by 0.7 cm diameter. ??Both fallopian tube display suggs-purple, glistening serosa and are sectioned to reveal a stellate lumen. Semi Driver sections are submitted follows: 1-2. ??Smaller fallopian tube to include entire fimbriated end 3-4. ??Larger fallopian tube to include entire fimbriated end B) Received in formalin, labeled with the patient's name and uterus with cervix, is a 57.8 g total hysterectomy specimen to include the uterus with attached cervix. The uterus is 8.2 cm cervix to fundus, 4.2 cm cornu to cornu and 3.2 cm anterior to posterior. The serosa is suggs-pink, glistening with minimal adhesions. The 3.2 x 2.8 cm suggs-pink and glistening ectocervix with a 0.3 cm slit-like os. The 3.8 cm length by 0.6 cm in diameter suggs-pink, glistening endocervical canal displays the normal herringbone pattern and a well-defined squamocolumnar junction. ??The 3.1 x 1.8 cm triangular endometrial cavity is focally retracted and stenotic consistent with a previous ablation. ??A focal area of residual suggs-pink and flat endometrium is identified measuring less than 0.1 cm in thickness. ??The myometrium is suggs-pink, mildly trabeculated and 1.7 cm and average thickness. ??No intramural nodules identified. Semi Driver sections are submitted follows: 1. ??Anterior cervix 2. ??Posterior cervix 3. ??Anterior endomyometrium, full-thickness 4. ??Posterior endomyometrium, full-thickness JKT 09/29/2023 09/30/2023 5:54 PM CDT [facility] ENTRAL LABORATORY Microscopic Description The final diagnosis is based on microscopic examination of appropriate sections of all specimens. 09/30/2023 5:54 PM CDT [facility] ENTRVA LABORATORY Additional Information Interpreted at [facility] Laboratory - [address] [facility] [address] [place] [address] 09/30/2023 5:54 PM CDT [facility] Other (Bilateral Fallopian Tubes) 09/28/2023 10:05 AM CDT 09/29/2023 8:00 AM CDT Specimen (specimen) (Uterus and Cervix) 09/28/2023 10:05 AM CDT 09/29/2023 8:00 AM CDT Taylor Nassar MD PATHOLOGY/ CYTOLOGY Performing Organization Address City/[facility]/ZIP Co de Phone Number [facility] [address] [place] [address], [place] * LAB TRACKING EVENT (09/28/2023 9:56 AM CDT) Other (Other) Client Collect / Unknown 09/28/2023 9:56 AM CDT 09/28/2023 9:48 PM CDT Taylor Nassar MD LAB BILL O NLY [facility] [address] [place] [address], [place] * HPV HIGH RISK (08/26/2022 11:45 AM CDT) TYPE 16 Negative Negative 08/28/2022 2:01 PM CDT [facility] TRAL LABORATORY TYPE 18 Negative Negative 08/28/2022 2:01 PM CDT [facility] TRAL LABORATORY OTHER HIGH RISK TYPES Negative Negative 08/28/2022 2:01 PM CDT [facility] TR[facility] LABORATORY Other (Cervical) 08/26/2022 11:45 AM CDT 08/26/2022 6:00 PM CDT Narrative [facility] - 08/28/2022 2:01 PM CDT HPV types 16, 18, 31, 33, 35, 39, 45, 51, 52, 56, 58, 59, 66 and 68 DNA were undetectable or below the pre-set threshold. Methodology: Becca Lucina 4800 HPV Test Taylor Nassar MD MICROBIOLO GY [facility] LABORATORY-CENTRAL LABORATORY [address] [place] [address], from Last 3 Months or Most Recently Relevant to Health Maintenance Care Teams Corn Picker Relationship Specialty [place] [address] [place] [address] PCP - General Physician Copper Tapper 05/13/23
--- OUTSIDE RECORDS SUMMARY | 2023-10-08 09:26 | XMS_ITS | Continuity of Care Document ---
Author Name Unknown Organization [facility] Address [address] [place] [address] Phone Care Team Providers Care Food And Nutrition Services Assistant Name Role Phone Aditi KAISER, Hayder Unavailable [...] [address], [place], [address], [place] tel:[phone] [facility] , Inflammatory Polyarthropa thy (chief complaint) Inflammatory polyarthropa thyVitamin D deficiency, unspecifiedC ounselingHig h risk medication monitoringRa 4 Aditi Singletary. [facility] [address], [place], [address], [place]. tel:[phone] Referring Provider: Hayder Lester [facility] [address], [place], [address]. tel:[phone] [facility] , [address], [place], [address], [place] tel:[phone] [facility] , No Information 4 Aditi Singletary. [facility] [address], [place], [address], [place]. tel:[phone] Office/Outpa tient Visit, Est [facility] , [address], [place], [address], [place] tel:[phone] [facility] , Inflammatory Polyarthropa thy (chief complaint) Inflammatory polyarthropa thyVitamin D deficiency, unspecifiedC ounselingHig h risk medication monitoring 3 Aditi Snigletary. [facility] [address], [place], [address], [place]. tel:[phone] Referring Provider: Hayder Lester, [facility] [address], [place], [address]. tel:[phone] Office/Outpa tient Visit, Est [facility] , [address], [place], [address], [place] tel:[phone] [facility] , Inflammatory Polyarthropa thy (chief complaint) Inflammatory polyarthropa thyVitamin D deficiency, unspecifiedC ounselingHig h risk medication monitoring 3 Aditi Singletary. [facility] [address], [place], [address], [place]. tel:[phone] Referring Provider: Hayder Lester, [facility] [address], [place], [address]. tel:[phone] Office/Outpa tient Visit, Est [facility] , [address], [place], [address], [place] tel:[phone] [facility] , Costochondri tisPain in unspecified jointVitamin D deficiency, unspecifiedS ystemic lupus erythematosu s, unspecified 0 Darvin Mcintosh. [facility] [address], [place], [address], [place]. tel:[phone] Referring Provider: Arnaldo Yo, [facility] [address], [place], [address]. tel:[phone] [facility] , [address], [place], [address], [place] tel:[phone] [facility] , No Information 0 Darvin Mcintosh. [facility] [address], [place], [address], [place]. tel:[phone] Referring Provider: Arnaldo Yo, [facility] [address], [place], [address]. tel:[phone] Office/Outpa tient Visit, New [facility] , [address], [place], [address], [place] tel:[phone] [facility] , Pain in unspecified jointVitamin D deficiencySy stemic lupus erythematosu s, unspecifiedO ther fatigue 0 Darvin Mcintosh. [facility] [address], [place], [address], [place]. tel:[phone] Referring Provider: Arnaldo Yo, [facility] [address], [place], [address]. tel:[phone] Family History Family Member Type Diagnosis Age At Onset Mother Problem malignant neopla sm of breast in first degree relative Maternal aunt Problem rheumatoid arthritis Father Problem hypertension Payers Payer name Insurance type Covered libertarian ID Jatinder glasgow(s) [facility] [id number] Social History Type Description Quantity Date Captured [...]
--- OUTSIDE RECORDS SUMMARY | 2023-10-08 09:26 | XMS_ITS | Continuity of Care Document ---
Author Name Unknown Organization [facility] Address [address] [place] [address] Phone Care Team Providers Care Rn Labor Delivery Name Role Phone MD STEFAN, MARION BOB Unavailable Unavai lable Procedures Procedure Date REPEAT ULTRASOUND STRAIGHTFORWARD OUTPT CONSULT 7 COMPLETE OB US Advance Directives Directive Yes / No Effective Date File Name No Information Encounters Encounter Description Practice Location Reason(s) For Visit Diagnoses Date Provider Providers Copied on Encounter [facility] [address], [place], [address], [place] tel:[phone] [facility] 32 weeks gestation of pregnancyUterin e size-date discrepancy, third trimesterOth diseases and conditions compl preg/chldbrthSy stemic lupus erythematosus, unspecified 0 7 MD MARION AVILES. [address], [place], [place], [id number] , [place]. tel: [phone] Referring Provider: JAQUELINE LEROY, [address] [facility] [address], [place], [address]. tel:[phone] STRAIGHTFORWARD OUTPT CONSULT [facility] [address], [place], [address], [place] tel:[phone] [facility] Maternal Systemic LupusSystemic lupus erythematosus, unspecifiedMate rnal Cardiovascular DiseaseOth diseases and conditions compl preg/chldbrthSy stemic lupus erythematosus, unspecifiedEnco unter for screening of weeks gestation of 0-201 7 MD Gabriel NYE. [address] [facility], [place], [place], [id number] , [place]. tel: [phone] Referring Provider: JAQUELINE LEROY, [address], [place], [address]. tel:[phone] Family History Family Member Type Diagnosis Age At Onset No Information Payers Payer name Insurance type Covered alliance party ID Authoriza tilauren(s) [facility] POS [id number] CI [id number] Social History Type Description Quantity Date Captured Comments Sex Female Smoking Status No Information Chief Complaint And Reason For Visit No Information History Of Present Illness Encounter Date Complaint History Of Prese nt Illness No Information Instructions Date Instruction Additional Infor mation No Information Assessments Type Assessment Date No Information
== END 2023-10-08 09:23 | disposition home or self-care (01) ==
LOC: FRMREF 09:24
PROVIDERS: PCP Family Medicine; Visit Provider Obstetrics & Gynecology
DX: R30.0 Dysuria (principal)
CPT/HCPCS: 87086

== ENCOUNTER 2023-10-11 10:55 | Day surgery (SDC) | payer BC, SELFPAY ==
--- OUTSIDE RECORDS SUMMARY | 2023-10-11 10:58 | XMS_ITS | Referral Summary ---
Author Name Unknown Organization [facility] Address [address] [place] [address] Care Team Providers Care Holter Technician Name Role Phone Diego Castañeda MD [...] Comments Blood Pressure 106/84 06/25/2021 10:22 AM CARPENTERS SUPERVISOR Pulse 75 06/25/2021 10:22 AM CARPENTERS SUPERVISOR Temperature 36.8 ??C (98.3 ??F) 06/25/2021 10:[address] Respiratory Rate 16 06/25/2021 10:22 AM CARPENTERS SUPERVISOR Oxygen Saturation 98% 06/25/2021 10:22 AM CARPENTERS SUPERVISOR Inhaled Oxygen Concentration - - Weight 84.4 kg (186 lb) 06/25/2021 10:22 AM CARPENTERS SUPERVISOR Height 172.7 cm (5' 8) 06/25/2021 10:22 AM CARPENTERS SUPERVISOR Body Mass Index 28.28 06/25/2021 10:22 AM CARPENTERS SUPERVISOR Plan of Treatment Not on file Procedures Procedure Name Priority Date/Time Associated Diagnosis Comments LAB RESULT - HIM SCAN 08/25/2023 12:00 AM CDT from Last 3 Months Results * LAB RESULT - HIM SCAN (08/25/2023 12:00 AM CDT) 08/25/2023 Provider Outside NON-BEAKER LAB TE STING from Last 3 Months Care Teams Holter Technician Relationship Specialty Start Date End Date Diego Castañeda [place] [address] [place] [address] Assigned PCP 05/29/21
--- OUTSIDE RECORDS SUMMARY | 2023-10-11 10:58 | XMS_ITS | Clinical Summary ---
Author Name Unknown Organization [facility] Address [address] [place] [address] Care Team Providers Care District Scout Executive Name Role Phone Diego Castañeda MD Unavailable [...] Comments Blood Pressure 106/84 06/25/2021 10:22 AM CRUISE COUNSELOR Pulse 75 06/25/2021 10:22 AM CRUISE COUNSELOR Temperature 36.8 ??C (98.3 ??F) 06/25/2021 10:[address] Respiratory Rate 16 06/25/2021 10:22 AM CRUISE COUNSELOR Oxygen Saturation 98% 06/25/2021 10:22 AM CRUISE COUNSELOR Inhaled Oxygen Concentration - - Weight 84.4 kg (186 lb) 06/25/2021 10:22 AM CRUISE COUNSELOR Height 172.7 cm (5' 8) 06/25/2021 10:22 AM CRUISE COUNSELOR Body Mass Index 28.28 06/25/2021 10:22 AM CRUISE COUNSELOR Plan of Treatment Health Maintenance Due Date Last Done Comments ADVANCE CARE PLANNING 1989 ANNUAL REVIEW OF HM ORDERS 1989 HIV SCREENING 2004 HEPATITIS C SCREENING 09/02/2007 HEPATITIS B IMMUNIZATION (1 of 3 - 19+ 3-dose series) 2008 DTAP/TDAP/TD IMMUNIZATION (1 - Tdap) 2014 YEARLY PREVENTIVE VISIT 04/07/2022 04/07/20 21, 12/13/2019 PAP 12/12/2022 12/13/2019, 12/13/2019 COVID-19 Vaccine ( - 2022-07 4 season) 2023 04/09/2021, 09/18/2020, 08/24/2020 PHQ-2 (once per calendar year) 2023 06/25/2021 INFLUENZA VACCINE (Season Ended) 2024 06/08/2022 HPV IMMUNIZATION Aged Out No longer e [...] STING from Last 3 Months Care Teams District Scout Executive Relationship Specialty Start Date End Date Diego Castañeda [place] [address] [place] [address] Assigned PCP 05/29/21
--- OUTSIDE RECORDS SUMMARY | 2023-10-11 10:59 | XMS_ITS | Continuity of Care Document ---
Author Name Unknown Organization [facility] Address [address] [place] [address] Phone Care Team Providers Care High School Science Tutor Name Role Phone MD STEFAN, MARION BOB Unavailable Unavai lable Procedures Procedure Date REPEAT ULTRASOUND STRAIGHTFORWARD OUTPT CONSULT 7 COMPLETE OB US Advance Directives Directive Yes / No Effective Date File Name No Information Encounters Encounter Description Practice Location Reason(s) For Visit Diagnoses Date Provider Providers Copied on Encounter [facility] [address], [place], [address], [place] tel:[phone] [facility] 32 weeks gestation of pregnancyUterin e size-date discrepancy, third trimesterOth diseases and conditions compl preg/chldbrthSy stemic lupus erythematosus, unspecified 0 7 MD MARION AVILES. [address], [place], [place], [id number] , [place]. tel: [phone] Referring Provider: JAQUELINE LEROY, [id number] [facility] [address] [facility] [address], [place], [address]. tel:[phone] STRAIGHTFORWARD OUTPT CONSULT [facility] [address], [place], [address], [place] tel:[phone] [facility] Maternal Systemic LupusSystemic lupus erythematosus, unspecifiedMate rnal Cardiovascular DiseaseOth diseases and conditions compl preg/chldbrthSy stemic lupus erythematosus, unspecifiedEnco unter for screening of weeks gestation of 0-201 7 MD Gabriel NYE. [address] [facility], [place], [place], [id number] , [place]. tel: [phone] Referring Provider: JAQUELINE LEROY, [id number] [facility] [address], [place], [address]. tel:[phone] Family History Family Member Type Diagnosis Age At Onset No Information Payers Payer name Insurance type Covered libertarian ID Authoriza tilauren(s) [facility] POS [id number] CI [id number] Social History Type Description Quantity Date Captured Comments Sex Female Smoking Status No Information Chief Complaint And Reason For Visit No Information History Of Present Illness Encounter Date Complaint History Of Prese nt Illness No Information Instructions Date Instruction Additional Infor mation No Information Assessments Type Assessment Date No Information
--- OUTSIDE RECORDS SUMMARY | 2023-10-11 10:59 | XMS_ITS | Clinical Summary ---
Author Name Unknown Organization [facility] Address [place], [place] [address] Care Team Providers Care Company Pilot Name Role Phone Valeria Vargas Primary Care [...] Department Care Team Description 09/28/2023 Lab Requisition [facility] [phone] Taylor Nassar MD 08/05/[address] [address] Chaparrita Degroot MD Medications 07/27/[address] [address] Chaparrita Degroot MD Medication Management (Metoprolol ) from Last 3 Months Immunizations Name Administration Dates Next Due COVID-19 vaccine (GoPlanit-BioNTTubis 30mcg/0.3mL) GONZALO Calvert 09/18/2020,08/24/2020 Family History Medical [...] AM CDT) Case Report Pathology Report ?Case: [id number] ? Authorizing Provider: ??Taylor Nassar ?Collected: ? 09/28/2023 1005 ? MD Chasity ? Ordering Location: ? [facility] ?Received: ?09/29/2023 0800 ? Pathologist: ? Leticia Gilbert MD ? Specimens: ?? A) - Bilateral Fallopian Tubes ? B) - Uterus and Cervix ? 09/30/2023 5:54 PM CDT [facility] Final Diagnosis A) BILATERAL [...] Negative for malignancy 09/30/2023 5:54 PM CDT [facility] Clinical Information Menometrorrhagia and thickened endometrium, failed ablation. 09/30/2023 5:54 PM CDT [facility] Gross Description A) Received in formalin, labeled with the patient's name and bilateral fallopian tubes, are 2 unoriented fimbriated fallopian tubes, which are 8.5 cm in length by 0.7 cm diameter and 9.2 cm length by 0.7 cm diameter. ??Both fallopian tube display suggs-purple, glistening serosa and are sectioned to reveal a stellate lumen. [employer] sections are submitted follows: 1-2. ??Smaller fallopian [...] and average thickness. ??No intramural nodules identified. [employer] sections are submitted follows: 1. ??Anterior cervix 2. ??Posterior cervix 3. ??Anterior endomyometrium, full-thickness 4. ??Posterior endomyometrium, full-thickness JKT 09/29/2023 09/30/2023 5:54 PM CDT [facility] Adreal [facility] Microscopic Description The final diagnosis is based on microscopic examination of appropriate sections of all specimens. 09/30/2023 5:54 PM CDT [facility] Additional Information Interpreted at [facility] - [address] [facility] [address], [place] [address] 09/30/2023 5:54 PM CDT [facility] Other (Bilateral Fallopian Tubes) 09/28/2023 10:05 AM CDT 09/29/2023 8:00 AM CDT Specimen (specimen) (Uterus and Cervix) 09/28/2023 10:05 AM CDT 09/29/2023 8:00 AM CDT Taylor Nassar MD PATHOLOGY/ CYTOLOGY Performing Organization Address City/[facility]/ZIP Co de Phone Number [facility] [address] [place] [address], [place] * LAB TRACKING EVENT (09/28/2023 9:56 AM CDT) Other (Other) Client Collect / Unknown 09/28/2023 9:56 AM CDT 09/28/2023 9:48 PM CDT Taylor Nassar MD LAB BILL O NLY [facility] [address] [place] [address], [place] * HPV HIGH RISK (08/26/2022 11:45 AM CDT) TYPE 16 Negative Negative 08/28/2022 2:01 PM CDT [facility] TYPE 18 Negative Negative 08/28/2022 2:01 PM CDT [facility] OTHER HIGH RISK TYPES Negative Negative 08/28/2022 2:01 PM CDT [facility] Other (Cervical) 08/26/2022 11:45 AM CDT 08/26/2022 6:00 PM CDT Narrative [facility] - 08/28/2022 2:01 PM CDT HPV types 16, 18, 31, 33, 35, 39, 45, 51, 52, 56, 58, 59, 66 and 68 DNA were undetectable or below the pre-set threshold. Methodology: Becca Lucina 4800 HPV Test Taylor Nassar MD MICROBIOLO GY [facility] [address] [place] [address], from Last 3 Months or Most Recently Relevant to Health Maintenance Care Teams Company Pilot Relationship Specialty [place] [address] [place] [address] PCP - General Physician Podiatry Professor 05/13/23
--- OUTSIDE RECORDS SUMMARY | 2023-10-11 10:59 | XMS_ITS | Continuity of Care Document ---
Author Name Unknown Organization [facility] Address [address] [place] [address] Phone Care Team Providers Care Bronzer Name Role Phone Aditi KAISER, Hayder Unavailable [...] [address], [place], [address], [place] tel:[phone] [facility] , Inflammatory Polyarthropa thy (chief complaint) Inflammatory polyarthropa thyVitamin D deficiency, unspecifiedC ounselingHig h risk medication monitoringRa 4 Aditi Singletary. [facility] [address], [place], [address], [place]. tel:[phone] Referring Provider: Hayder Lester [facility] [address], [place], [address]. tel:[phone] [facility] , [address], [place], [address], [place] tel:[phone] [facility] , No Information 4 Aditi Singletary. [facility] [address], [place], [address], [place]. tel:[phone] Office/Outpa tient Visit, Est [facility] , [address], [place], [address], [place] tel:[phone] [facility] , Inflammatory Polyarthropa thy (chief complaint) Inflammatory polyarthropa thyVitamin D deficiency, unspecifiedC ounselingHig h risk medication monitoring 3 Aditi Singletary. [facility] [address], [place], [address], [place]. tel:[phone] Referring Provider: Hayder Lester, [facility] [address], [place], [address]. tel:[phone] Office/Outpa tient Visit, Est [facility] , [address], [place], [address], [place] tel:[phone] [facility] , Inflammatory Polyarthropa thy (chief complaint) Inflammatory polyarthropa thyVitamin D deficiency, unspecifiedC ounselingHig h risk medication monitoring 3 Aditi Singletary. [facility] [address], [place], [address], [place]. tel:[phone] Referring Provider: Hayder Lester, [facility] [address], [place], [address]. tel:[phone] Office/Outpa tient Visit, Est [facility] , [address], [place], [address], [place] tel:[phone] [facility] , Costochondri tisPain in unspecified jointVitamin D deficiency, unspecifiedS ystemic lupus erythematosu s, unspecified 0 Darvin Mcintosh. [facility] [address], [place], [address], [place]. tel:[phone] Referring Provider: Arnaldo Yo, [facility] [address], [place], [address]. tel:[phone] [facility] , [address], [place], [address], [place] tel:[phone] [facility] , No Information 0 Darvin Mcintosh. [facility] [address], [place], [address], [place]. tel:[phone] Referring Provider: Arnaldo Yo, [facility] [address], [place], [address]. tel:[phone] Office/Outpa tient Visit, New [facility] , [address], [place], [address], [place] tel:[phone] [facility] , Pain in unspecified jointVitamin D deficiencySy stemic lupus erythematosu s, unspecifiedO ther fatigue 0 Darvin Mcintosh. [facility] [address], [place], [address], [place]. tel:[phone] Referring Provider: Arnaldo Yo, [facility] [address], [place], [address]. tel:[phone] Family History Family Member Type Diagnosis Age At Onset Mother Problem malignant neopla sm of breast in first degree relative Maternal aunt Problem rheumatoid arthritis Father Problem hypertension Payers Payer name Insurance type Covered libertarian ID Jatinder glasgow(s) [facility] [id number] Social History Type Description Quantity Date Captured [...]
[2023-10-11 11:15] VITALS: BMI 25.8
--- NOTE | 2023-10-11 11:20 | SUR.PREOP ---
Patient arrived from clinic area. Vital signs deferred, as they were done in clinic.
[2023-10-11 11:24] LABS: Hemoglobin* 12.5 gm/dL (12.0-16.0)
[2023-10-11] MEDS: LACTATED RINGERS 1000 ML 1,000 ML 100 ML IV ×2 (11:28→12:42)
--- NOTE | 2023-10-11 12:02 | W.ANESCHARGE ---
Anesthesia Charges Start Date/Time Anesthesia Start Date: 10/11/23 Anesthesia Start Time: 11:42 Stop Date/Time Anesthesia Stop Date: 10/11/23 Anesthesia Stop Time: 12:58
[2023-10-11] MEDS: SILVER NITRATE APPLICATOR 1 EACH STICK..EA. TOPICAL (12:30)
--- NOTE | 2023-10-11 12:59 | W.ANESCHARGE ---
Anesthesia Charges Start Date/Time Anesthesia Start Date: 10/11/23 Anesthesia Start Time: 11:42 Stop Date/Time Anesthesia Stop Date: 10/11/23 Anesthesia Stop Time: 12:58
[2023-10-11 13:00] VITALS: BP 126/74; PULSE 84; RESP 16; TEMP 36.9; O2SAT 96
--- NOTE | 2023-10-11 13:04 | W.PM.GYNPROC ---
Procedure Note Time Seen by Provider: 10:00 Date of procedure: 10/11/23 Will [facility] bill your pro fee for this procedure?: Yes Pre-op diagnosis: Vaginal cuff dehiscence Post-op diagnosis: Vaginal cuff dehiscence Anesthesia: MAC Pathology: specimen obtained, sent to pathology (Posterior vaginal lesion ) Condition: stable Disposition: same day Procedure Description: EXAM UNDER ANESTHESIA AND VAGINAL CUFF REPAIR PREOPERATIVE DIAGNOSIS: 1. Vaginal cuff dehiscence POSTOPERATIVE DIAGNOSIS: 1. Vaginal cuff dehiscence 2. Endometriosis lesion at the posterior vaginal vault 3. Mass at the rectovaginal septum PROCEDURE: 1. EUA 2. Vaginal cuff repair 3. Fulguration of endometriosis lesions in the vagina SURGEON: Janene Atkinson MD ANESTHESIA: MAC FINDINGS: Vaginal cuff showed 1.5 cm dehiscence right at midline with superficial separation of the low left side of vaginal cuff. No bowel or epiploica noted through the dehiscence. The area of dehiscence and superficial separation is the source for the vaginal bleeding. Right side vaginal cuff is intact. Small brown lesions noted on the posterior fornix, easily rupture with pickups and expressed small amount of blood - likely endometriosis lesions. Posterior fornix fullness noted. Rectal exam: 1 large edematous hemorrhoid noted - soft. Large amount of hard stool - digitally evacuated to be able to perform a better exam. Rectal mucosa is smooth and intact. 2-3 cm round mass near the rectovaginal septum. No sutures noted rectally after vaginal cuff repair. FLUIDS: 1600 cc ESTIMATED BLOOD LOSS: 10 cc URINE OUTPUT: 80 cc (sent for UA/UCx due to dysuria and suprapubic tenderness) COMPLICATIONS: None PREOP ANTIBIOTIC: 2g of Ancef SPECIMEN: 1. Posterior vaginal lesion INDICATIONS: Fiorella is a 33 yo G 2 P 1011, with vaginal cuff dehiscence after total laparoscopic hysterectomy, bilateral salpingectomy, diagnostic cystoscopy, lysis of adhesions by General surgery, proctoscopy by General surgery on 09/28/2023. DESCRIPTION OF PROCEDURE: Fiorella was taken to the operating room where MAC was administered. She was prepared and draped in normal sterile fashion in the dorsal lithotomy position in yellow fin stirrups, taking care to avoid lower extremity hyperextension, hyperflexion or compression. A surgical time-out was performed with the entire operative staff per protocol. Perioperative antibiotics were given and pneumoboots were placed and activated. EUA revealed the above findings. Bladder was drained with a straight cath and set for UA/UCx. A weighted speculum and Peri was placed in the vagina. An Allis clamps was used to grasp the anterior vaginal cuff and another Allis was used to grasp the posterior vaginal cuff. Kksqkg-mf-oxogc placed to reapproximate the dehiscence using 0 Vicryl. Two more lkikvm-bj-nxculn were placed to reinforce the superficial separation on the left side of the vaginal cuff. Hemostasis achieved after the reapproximation. Attention was then turned towards fulguration of endometrial lesions. I did remove one lesion with Metzenbaum to be sent for pathologic examination. Hemostasis achieved with silver nitrate/electrocautery. Two other lesions was fulgurated with Bovie cautery. Rectal exam performed at the end of the case. Given a mass palpated rectally, I did ask Dr. Medina's input as she was the general surgeon who performed lysis of adhesion and proctoscopy at time of her hysterectomy. Dr. Medina graciously performed a rectovaginal exam intraop. She feels reassured given smooth and intact rectal mucosa and agreed that it's best to let her heal from initial surgery and evaluate this mass further with pelvic MRI. Recommended utilization of mag citrate if patient's constipation doesn't improve. All instruments were removed. Debrief performed per protocol and specimen reviewed. Specimen was sent to pathology. The patient tolerated the procedure well. Sponge, lap and needle counts were correct x 2. The patient was taken to the recovery room in stable condition.
[2023-10-11 13:07] LABS: Appearance Urine Cloudy (Clear); Bilirubin Urine 1+ (Negative); Blood Urine Negative (Negative); Color Urine Dark yellow (Yellow); Glucose Urine Negative (Negative); Ketones Urine 2+ (Negative); Leukocyte Esterase Urine Negative (Negative); Nitrite Urine Negative (Negative); Protein Urine Negative (Negative); Specific Gravity Urine >= 1.030 (1.000-1.030); Urobilinogen Urine 0.2 (0.2-1.0); pH Urine 5.5 (5.0-8.5)
[2023-10-11 13:20] VITALS: BP 122/80; PULSE 78; RESP 16; O2SAT 97
[2023-10-11 13:21] LABS: Amorphous Sediment Urine Few; Bacteria Urine Few; Mucus Urine Many; RBC Urine 0-2 (0-2); Squamous Epithelial Cell Urine Few (None-Few); WBC Urine 0-2 (0-5)
--- NOTE | 2023-10-11 13:26 | SUR.PHASEII ---
PATIENT UP TO VOID-BROUGHT IN A WHEELCHAIR DUE TO SEDATED STATE. TOLERATED WELL. ABLE TO VOID A LARGE AMOUNT.
== END 2023-10-11 13:48 | disposition home or self-care (01) ==
PROVIDERS: PCP Family Medicine; Visit Provider Obstetrics & Gynecology
PROC: 0UQG0ZZ Repair Vagina, Open Approach (ICD-10-PCS; CPT 57061; principal; 2023-10-11 12:00)
DX: T81.31XA Disruption of external operation (surgical) wound, not elsewhere classified, initial encounter (principal); N80.42 Endometriosis of rectovaginal septum with involvement of vagina; K64.8 Other hemorrhoids
CPT/HCPCS: 57061; 58999; 00942; 36415; 81001; 85018; 86850; 86900; 86901; 87086; 88305; A9270; J7120

== ENCOUNTER 2023-11-02 09:51 | Outpatient (CLI) | payer BC, SELFPAY ==
--- OUTSIDE RECORDS SUMMARY | 2023-11-02 09:53 | XMS_ITS | Referral Summary ---
Author Organization [place] Address [address] [place] [address] Care Team Providers Care Night Clerk Auditor Name Role Phone Diego Castañeda MD Unavailable [...] Comments Blood Pressure 106/84 06/25/2021 10:22 AM SENIOR DESIGN ENGINEERING SPECIALIST Pulse 75 06/25/2021 10:22 AM SENIOR DESIGN ENGINEERING SPECIALIST Temperature 36.8 ??C (98.3 ??F) 06/25/2021 10:[address] Respiratory Rate 16 06/25/2021 10:22 AM SENIOR DESIGN ENGINEERING SPECIALIST Oxygen Saturation 98% 06/25/2021 10:22 AM SENIOR DESIGN ENGINEERING SPECIALIST Inhaled Oxygen Concentration - - Weight 84.4 kg (186 lb) 06/25/2021 10:22 AM SENIOR DESIGN ENGINEERING SPECIALIST Height 172.7 cm (5' 8) 06/25/2021 10:22 AM SENIOR DESIGN ENGINEERING SPECIALIST Body Mass Index 28.28 06/25/2021 10:22 AM SENIOR DESIGN ENGINEERING SPECIALIST Plan of Treatment Not on file Procedures Procedure Name Priority Date/Time Associated Diagnosis Comments ALT (EXTERNAL RESULT) Routine 08/25/2023 12:41 PM CDT AST (EXTERNAL RESULT) Routine 08/25/2023 12:41 PM CDT CREATININE (EXTERNAL RESULT) Routine 08/25/2023 12:41 PM CDT LAB RESULT - HIM SCAN 08/25/2023 12:00 AM CDT from Last 3 Months Results * Creatinine (External Result) (08/25/2023 12:41 PM CDT) Creatinine (External) 0.740 0.500 - 1.300 mg/dL [facility] KATHARINA Blood 08/25/2023 12:4 1 PM CDT Narrative [facility] - 08/25/2023 12:41 PM CDT [facility] Lab Results Provider Outside LAB - HIM EXTERNAL R ESULT [facility] [address] [place] [address], [facility] [phone] * AST (External Result) (08/25/2023 12:41 PM CDT) AST (External) 18 5 - 34 U/L [facility] Blood 08/25/2023 12:4 1 PM CDT Narrative [facility] - 08/25/2023 12:41 PM CDT [facility] Results Provider Outside LAB - HIM EXTERNAL R ESULT [facility] [address] [place] [address], [facility] [phone] * ALT (External Result) (08/25/2023 12:41 PM CDT) ALT (External) 15 5 - 35 IU/L [facility] KATHARINA Blood 08/25/2023 12:4 1 PM CDT Narrative [facility]ATH[facility] - 08/25/2023 12:41 PM CDT [facility] Results Provider Outside LAB - HIM EXTERNAL R ESULT [facility] KATHARINA [address] [place] [address], [facility] [phone] * LAB RESULT - HIM SCAN (08/25/2023 12:00 AM CDT) 08/25/2023 Provider Outside NON-BEAKER LAB TE STING from Last 3 Months Care Teams Night Clerk Auditor Relationship Specialty Start Date End Date Diego Castañeda [place] [address] [place] [address] Assigned PCP 05/29/21
--- OUTSIDE RECORDS SUMMARY | 2023-11-02 09:53 | XMS_ITS | Clinical Summary ---
Author Organization [place] Address [address] [place] [address] Care Team Providers Care Vp Customer Service Name Role Phone Diego Castañeda MD Unavailable [...] Comments Blood Pressure 106/84 06/25/2021 10:22 AM HADOOP ENGINEER Pulse 75 06/25/2021 10:22 AM HADOOP ENGINEER Temperature 36.8 ??C (98.3 ??F) 06/25/2021 10:[address] Respiratory Rate 16 06/25/2021 10:22 AM HADOOP ENGINEER Oxygen Saturation 98% 06/25/2021 10:22 AM HADOOP ENGINEER Inhaled Oxygen Concentration - - Weight 84.4 kg (186 lb) 06/25/2021 10:22 AM HADOOP ENGINEER Height 172.7 cm (5' 8) 06/25/2021 10:22 AM HADOOP ENGINEER Body Mass Index 28.28 06/25/2021 10:22 AM HADOOP ENGINEER Plan of Treatment Health Maintenance Due Date [...] 2022-2 4 season) 2023 04/09/2021, 09/18/2020, 08/24/2020 PHQ-2 [...] - 1.300 mg/dL [facility] Blood 08/25/2023 12:4 1 PM CDT Narrative [facility] - 08/25/2023 12:41 PM CDT [facility] Results Provider Outside LAB - HIM EXTERNAL R ESULT [facility] [place] [address], [facility] [phone] * AST (External Result) (08/25/2023 12:41 PM CDT) AST (External) 18 5 - 34 U/L [facility] Blood 08/25/2023 12:4 1 PM CDT Narrative [facility] - 08/25/2023 12:41 PM CDT [facility] Results Provider Outside LAB - HIM EXTERNAL R ESULT [facility] [place] [address], [facility] [phone] * ALT (External Result) (08/25/2023 12:41 PM CDT) ALT (External) 15 5 - 35 IU/L [facility] Blood 08/25/2023 12:4 1 PM CDT Narrative [facility] - 08/25/2023 12:41 PM CDT [facility] Results Provider Outside LAB - HIM EXTERNAL R ESULT [facility] [address] [place] [address], [facility] [phone] * LAB RESULT - HIM SCAN (08/25/2023 12:00 AM CDT) 08/25/2023 Provider Outside NON-BEAKER LAB TE STING from Last 3 Months Care Teams Vp Customer Service Relationship Specialty Start Date End Date Diego Castañeda [place] [address] [place] [address] Assigned PCP 05/29/21
--- OUTSIDE RECORDS SUMMARY | 2023-11-02 09:54 | XMS_ITS | Continuity of Care Document ---
Author Organization [facility] Address [address] [place] [address] Phone Care Team Providers Care Tutoring Assistant Name Role Phone Aditi KAIS[facility], [facility] [...] [facility] , [address], [place], [address], [place] tel:[phone] [facility] , Inflammatory Polyarthropa thy (chief complaint) Inflammatory polyarthropa thyVitamin D deficiency, unspecifiedC ounselingIng h risk medication monitoringRa 4 Aditi Singletary. [facility] [address], [place], [place], [address], [place]. tel:[phone] Referring Provider: Hayder Lester, [facility] [address], [place], [address]. tel:[phone] [facility] , [address], [place], [address], [place] tel:[phone] [facility] , No Information 4 Aditi Singletary. [facility] [address], [place], [address], [place]. tel:[phone] Office/Outpa tient Visit, Est [facility] , [address], [place], [address], [place] tel:[phone] [facility] , Inflammatory Polyarthropa thy (chief complaint) Inflammatory polyarthropa thyVitamin D deficiency, unspecifiedC ounselingHig h risk medication monitoring 3 Adiit Singletary. [facility] [address], [place], [address], [place]. tel:[phone] Referring Provider: Hayder Lester, [facility] [address], [place], [address]. tel:[phone] Office/Outpa tient Visit, Est [facility] , [address], [place], [address], [place] tel:[phone] [facility] , Inflammatory Polyarthropa thy (chief complaint) Inflammatory polyarthropa thyVitamin D deficiency, unspecifiedC ounselingHig h risk medication monitoring 3 Aditi Singletary. [facility] [address], [place], [address], [place]. tel:[phone] Referring Provider: Hayder Lester, [facility] [address], [place], [address]. tel:[phone] Office/Outpa tient Visit, Est [facility] , [address], [place], [address], [place] tel:[phone] [facility] , Costochondri tisPain in unspecified jointVitamin D deficiency, unspecifiedS ystemic lupus erythematosu s, unspecified 0 Darvin Mcintosh. [facility] [address], [place], [address], [place]. tel:[phone] Referring Provider: Arnaldo Yo, [facility] [address], [place], [address]. tel:[phone] [facility] , [address], [place], [address], [place] tel:[phone] [facility] , No Information 0 Darvin Mcintosh. [facility] [address], [place], [address], [place]. tel:[phone] Referring Provider: Arnaldo Yo, [facility] [address], [place], [address]. tel:[phone] Office/Outpa tient Visit, New [facility] , [address], [place], [address], [place] tel:[phone] [facility] , Pain in unspecified jointVitamin D deficiencySy stemic lupus erythematosu s, unspecifiedO ther fatigue 0 Darivn Mcintosh. [facility] [address], [place], [address], [place]. tel:[phone] Referring Provider: Arnaldo Yo, [facility] [address], [place], [address]. tel:[phone] Family History Family Member Type Diagnosis Age At Onset Mother Problem malignant neopla sm of breast in first degree relative Maternal aunt Problem rheumatoid arthritis Father Problem hypertension Payers Payer name Insurance type Covered alliance party ID Jatinder glasgow(s) [facility] [id number] Social History Type Description Quantity Date Captured [...]
--- OUTSIDE RECORDS SUMMARY | 2023-11-02 09:54 | XMS_ITS | Clinical Summary ---
Author Organization [facility] Address [place], [place] [address] Care Team Providers Care Deck Lid Fitter Name Role Phone Valeria Vargas Primary Care Provider Allergies No known active allergies Medications Medication Sig Dispensed Refills Start Date End Date Status etonogestreL-ethi nyl estradioL (NuvaRing) vaginal ring Insert 1 ring into the vagina every 4 weeks. Insert 1 ring vaginally and leave in place for 3 consecutive weeks, then remove for 1 week. Repeat with new ring. 3 ring 3 10/10/2020 Active methotrexate (RHEUMATREX) 2.5 mg tablet Take 12.5 mg by mouth once weekly. 0 08/26/2021 Active celecoxib (CELEBREX) 200 mg capsuleIndication s:Rheumatoid arthritis, involving unspecified site, unspecified whether rheumatoid factor present (HC) Take by mouth once daily if needed for Pain. 90 Capsule 08/18/2022 Active metoprolol succinate (TOPROL XL) 25 mg Sustained-Release tabletIndications :PAC (premature atrial contraction) Take 1 Tablet (25 mg) by mouth once daily. 90 Tablet 10/25/2023 Active metoprolol succinate (TOPROL XL) 25 mg Sustained-Release tabletIndications :PAC (premature atrial contraction) Take 1 Tablet (25 mg) by mouth once daily. 90 Tablet 08/05/2023 Discontinue d(Reorder (E-cancel not sent)) Active Problems Problem Noted Date Diagnosed Date Lupus 04/07/2021 Rheumatoid arthritis 06/14/2020 Encounters Date Type Department Care Team Description 10/25/[address] [address] Chaparrita Degroot MD Refill Request (Toprol) 10/11/2023 Lab Requisition [facility] [phone] Janene Atkinson MD 09/28/2023 Lab Requisition [facility] [phone] Taylor Nassar MD 08/05/[address] [address] Chaparrita Degroot MD Medications from Last 3 Months Immunizations Name Administration Dates Next Due COVID-19 vaccine ([employer] 30mcg/0.3mL) GONZALO Calvert 09/18/2020,08/24/2020 Family History Medical History Relation Name Comments Good Health Father No Known Problems Maternal Grandfather No Known Problems Maternal Grandmother Cancer-breast Mother Bone cancer Paternal Grandfather Allred; s tarted as Bone? Dementia Paternal Grandmother [...] 08/27/2027 , 08/26/2022, 05/21/2020 ([facility]) Pneumococcal series for age 6-64 Aged Out No longer eligible based on patient's age to complete this topic Procedures Procedure Name Priority Date/Time Associated Diagnosis Comments LAB TRACKING EVENT Routine 10/11/2023 12 :47 PM CDT PATH TISSUE EXAM Routine 10/11/2023 12:4 7 PM CDT PATH TISSUE EXAM Routine 09/28/2023 10:0 5 AM CDT LAB TRACKING EVENT Routine 09/28/2023 9: 56 AM CDT HPV THIN PREP Routine 08/26/2022 11:45 AM CDT from Last 3 Months or Most Recently Relevant to Health Maintenance Results * LAB TRACKING EVENT (10/11/2023 12:47 PM CDT) Only the most recent of2 resultswithin the time period is included. Other (Other) Client Collect / Unknown 10/11/2023 12:47 PM CDT 10/11/2023 9:30 PM CDT Janene Atkinson MD LAB BILL ONLY [facility] [address] [place] [address], * PATH TISSUE EXAM (10/11/2023 12:47 PM CDT) Only the most recent of2 resultswithin the time period is included. Case Report Pathology Report ?Case: [id number] ? Authorizing Provider: ??Vu, Janene Lawton MD ?Collected: ? 10/11/2023 1247 ? Ordering Location: ? [facility] ?Received: ?10/12/2023 0811 ? Pathologist: ? Gonsalo Kidd MD ? Specimen: ?Vaginal Cuff ? 10/14/2023 4:26 PM CDT [facility] Final Diagnosis A) VAGINAL CUFF, BIOPSY: 1. Benign squamous mucosa with hemosiderin-lade n macrophages 2. Negative for malignancy 10/14/2023 4:26 PM CDT [facility] Comment A) Hemoderin-laden macrophages are present in the stroma which suggests prior hemorrhage, however diagnostic histologic features of endometriosis are not identified. 10/14/2023 4:26 PM CDT [facility] Clinical Information Suspected vaginal endometriosis at vaginal cuff 10/14/2023 4:[address] [facility] Gross Description A) Received in formalin, labeled with the patient's name and posterior vaginal cuff lesion, is a 0.2 x 0.2 x 0.2 cm suggs tissue fragment. ??The specimen is submitted in toto in 1 cassette. JPW 10/12/2023 10/14/2023 4:[address] [facility] Microscopic Description The final diagnosis is based on microscopic examination of appropriate sections of all specimens. Additional levels were examined. 10/14/2023 4:[address] [facility] Additional Information Interpreted at [facility] - [address] [facility] [address] [address] 10/14/2023 4:[address] [facility] Other (Vaginal Cuff) 10/11/2023 12:47 PM CDT 10/12/2023 8:11 AM CDT Janene Leighann Atkinson MD PATHOLOGY/CYTOLOGY [facility] [address] * HPV HIGH RISK (08/26/2022 11:45 AM CDT) TYPE 16 Negative Negative 08/28/2022 2:01 PM CDT [facility] TYPE 18 Negative Negative 08/28/2022 2:01 PM CDT [facility] OTHER HIGH RISK TYPES Negative Negative 08/28/2022 2:01 PM CDT [facility] Other (Cervical) 08/26/2022 11:45 AM CDT 08/26/2022 6:00 PM CDT Narrative [facility] - 08/28/2022 2:01 PM CDT HPV types 16, 18, 31, 33, 35, 39, 45, 51, 52, 56, 58, 59, 66 and 68 DNA were undetectable or below the pre-set threshold. Methodology: Becca Lucina 4800 HPV Test Taylor Nassar MD MICROBIOLO GY [facility] [address] [place] [address], from Last 3 Months or Most Recently Relevant to Health Maintenance Care Teams Deck Lid Fitter Relationship Specialty [place] [address] [place] [address] PCP - General Physician Sole Dyer 05/13/23
--- OUTSIDE RECORDS SUMMARY | 2023-11-02 09:54 | XMS_ITS | Continuity of Care Document ---
Author Organization [facility] . Address [address] [place] [address] Phone Care Team Providers Care Hazardous Waste Remover Name Role Phone MD STEFAN, MARION BOB Unavailable Unavai lable Advance Directives Directive Yes / No Effective Date File Name No Information Encounters Encounter Description Practice Location Reason(s) For Visit Diagnoses Date Provider Providers Copied on Encounter [facility] [address], [place], [address], [place] tel:[phone] [facility] No Information MD MARION AVILES. [address], [place], [place], [address], [place]. tel:[phone] Referring Provider: JAQUELINE LEROY, [address] [facility] [address], [place], [address]. tel:[phone] Family History Family Member Type Diagnosis Age At Onset No Information Payers Payer name Insurance type Covered constitution party ID Authoriza tialuren(s) [facility] POS [id number] CI [id number] Social History Type Description Quantity Date Captured Comments Sex Female Smoking Status No Information Chief Complaint And Reason For Visit No Information History Of Present Illness Encounter Date Complaint History Of Prese nt Illness No Information Instructions Date Instruction Additional Infor mation No Information Assessments Type Assessment Date No Information
--- NOTE | 2023-11-02 10:15 | CRLHL7_ITS ---
For Patients: As a result of the Century Cures Act, medical imaging exams and procedure reports are released immediately into your electronic medical record. You may view this report before your referring provider. If you have questions, please contact your health care provider. INDICATION: Looking for endometriosis. Comparison : Pelvic ultrasound on August 05, 2022. TECHNIQUE: MRI of the pelvis without and with intravenous contrast; precontrast T1 and T2 weighted imaging; T2 haste imaging; in- and out of phase imaging; postcontrast imaging including subtraction; 20 cc at Dotarem contrast was injected. FINDINGS: Possible hemorrhagic cyst/endometrioma involving the left ovary. No adnexal pathology otherwise. No implants identified in the pelvis or on the serosa of the rectum or sigmoid colon. No abnormal pelvic lymphadenopathy. Nabothian cyst. No free fluid identified in the pelvic cul-de-sac. IMPRESSION: 1. Possible endometrioma left ovary. 2. No abnormal pelvic lymphadenopathy or other mass lesions. Dictated by Mila Hartmann MD @ 11/03/2023 2:47:14 PM (Electronically Signed)
== END 2023-11-02 09:52 | disposition home or self-care (01) ==
LOC: MRI 09:51
PROVIDERS: PCP Family Medicine; Visit Provider Obstetrics & Gynecology
DX: K62.89 Other specified diseases of anus and rectum (principal)
CPT/HCPCS: 72197; A9575

== ENCOUNTER 2024-01-24 15:26 | Outpatient (CLI) | payer BC, SELFPAY ==
--- OUTSIDE RECORDS SUMMARY | 2024-01-25 08:50 | XMS_ITS | Clinical Summary ---
Author Organization [facility] [employer] [facility] Address [place], [place] [address] Care Team Providers Care Integration Solution Architect Name Role Phone Valeria Vargas Primary Care [...] mouth once daily. 90 Tablet 10/25/2023 Active Active Problems Problem Noted Date Diagnosed Date Lupus 04/07/2021 Rheumatoid arthritis 06/14/2020 Encounters Date Type Department Care Team Description 10/25/[address] [address] Chaparrita Degroot MD Refill Request (Toprol) from Last 3 Months Immunizations Name Administration Dates Next Due COVID-19 vaccine ([employer] 30mcg/0.3mL) GONZALO Calvert 09/18/2020,08/24/2020 Family History Medical [...] Outcome GA Total Labor Labor/2nd/3rd Weight Sex Type Anes PTL Deborah A1 A5 Name Clin Para SAB Last Filed Vital Signs Vital [...] 16 Negative Negative 08/28/2022 2:01 PM CDT [facility] TYPE 18 Negative Negative 08/28/2022 2:01 PM CDT [facility] OTHER HIGH RISK TYPES Negative Negative 08/28/2022 2:01 PM CDT [facility] Other (Cervical) 08/26/2022 11:45 AM CDT 08/26/2022 6:00 PM CDT Narrative [facility] - 08/28/2022 2:01 PM CDT HPV types 16, 18, 31, 33, 35, 39, 45, 51, 52, 56, 58, 59, 66 and 68 DNA were undetectable or below the pre-set threshold. Methodology: [employer] Lucina 4800 HPV Test Taylor Nassar MD [facility] [address] [place] [address], [place] from Last 3 Months or Most Recently Relevant to Health Maintenance Care Teams Integration Solution Architect Relationship Specialty [place] [address] [place] [address] PCP - General Physician Digital Analytics Manager 05/13/23
--- OUTSIDE RECORDS SUMMARY | 2024-01-25 08:50 | XMS_ITS | Clinical Summary ---
Author Organization [place] [facility] Address [address] [place] [address] Care Team Providers Care Jar Capper Name Role Phone Diego Castañeda MD Unavailable [...] Comments Blood Pressure 106/84 06/25/2021 10:[address] [facility] [place] LAW CLERK Pulse 75 06/25/2021 10:[address] [facility] [place] LAW CLERK Temperature 36.8 ??C (98.3 ??F) 06/25/2021 10:[address] Respiratory Rate 16 06/25/2021 10:[address] [facility] LAW CLERK Oxygen Saturation 98% 06/25/2021 10:[address] [facility] LAW CLERK Inhaled Oxygen Concentration - - Weight 84.4 kg (186 lb) 06/25/2021 10:[address] [facility] LAW CLERK Height 172.7 cm (5' 8) 06/25/2021 10:[address] [facility] LAW CLERK Body Mass Index 28.28 06/25/2021 10:[address] [facility] [place] LAW CLERK Plan of Treatment Health Maintenance Due Date [...] per calendar year) 2023 06/25/2021 INFLUENZA VACCINE (#1) 2024 06/08/2022 HPV IMMUNIZATION Aged Out No [...] Procedure Name Priority Date/Time Associated Diagnosis Comments AST (EXTERNAL RESULT) Routine 12/23/2023 1:05 PM CDT CREATININE (EXTERNAL RESULT) Routine 12/23/2023 1:05 PM CDT LAB RESULT - HIM SCAN 12/23/2023 12:00 AM CDT from Last 3 Months Results * Creatinine (External Result) (12/23/2023 1:05 PM CDT) Creatinine (External) 0.800 0.500 - 1.050 mg/dL [facility] Blood 12/23/2023 1:05 PM CDT Narrative [facility] - 12/23/2023 1:05 PM CDT [facility] - External Lab Results Provider Outside LAB - HIM EXTERNAL R ESULT Performing Organization Address City/[facility]/ZIP Co de Phone Number [facility] [address] [place] [address], [facility] [phone] * AST (External Result) (12/23/2023 1:05 PM CDT) AST (External) 35 10 - 35 U/L [facility] Blood 12/23/2023 1:05 PM CDT Narrative [facility] - 12/23/2023 1:05 PM CDT [facility] - External Lab Results Provider Outside LAB - HIM EXTERNAL R ESULT Performing Organization Address [facility] Co de Phone Number [facility] [address] [place] [address], [facility] [phone] * Lab Result - HIM Scan (12/23/2023 12:00 AM CDT) 12/23/2023 Provider Outside NON-BEAKER LAB TE STING from Last 3 Months Care Teams Jar Capper Relationship Specialty Start Date End Date Diego Castañeda [place] [address] [place] [address] Assigned PCP 05/29/21
--- OUTSIDE RECORDS SUMMARY | 2024-01-25 08:50 | XMS_ITS | Referral Summary ---
Author Organization [place] Address [address] [place] [address] Care Team Providers Care Manager Long Term Care Name Role Phone Diego Castañeda MD Unavailable [...] Comments Blood Pressure 106/84 06/25/2021 10:22 AM THREAD ROLLER Pulse 75 06/25/2021 10:22 AM THREAD ROLLER Temperature 36.8 ??C (98.3 ??F) 06/25/2021 10:[address] Respiratory Rate 16 06/25/2021 10:22 AM THREAD ROLLER Oxygen Saturation 98% 06/25/2021 10:22 AM THREAD ROLLER Inhaled Oxygen Concentration - - Weight 84.4 kg (186 lb) 06/25/2021 10:22 AM THREAD ROLLER Height 172.7 cm (5' 8) 06/25/2021 10:22 AM THREAD ROLLER Body Mass Index 28.28 06/25/2021 10:22 AM THREAD ROLLER Plan of Treatment Not on file Procedures Procedure Name Priority Date/Time Associated Diagnosis Comments AST (EXTERNAL RESULT) Routine 12/23/2023 1:05 PM CDT CREATININE (EXTERNAL RESULT) Routine 12/23/2023 1:05 PM CDT LAB RESULT - HIM SCAN 12/23/2023 12:00 AM CDT from Last 3 Months Results * Creatinine (External Result) (12/23/2023 1:05 PM CDT) Creatinine (External) 0.800 0.500 - 1.050 mg/dL [facility] KATHARINA Blood 12/23/2023 1:05 PM CDT Narrative [facility] - 12/23/2023 1:05 PM CDT [facility] - External Lab Results Provider Outside LAB - HIM EXTERNAL R ESULT [facility] [address] [place] [address], [facility] [phone] * AST (External Result) (12/23/2023 1:05 PM CDT) AST (External) 35 10 - 35 U/L [facility] Blood 12/23/2023 1:05 PM CDT Narrative [facility] - 12/23/2023 1:05 PM CDT [facility] - External Lab Results Provider Outside LAB - HIM EXTERNAL R ESULT [facility] [address] [place] [address], [facility] [phone] * Lab Result - HIM Scan (12/23/2023 12:00 AM CDT) 12/23/2023 Provider Outside NON-BEAKER LAB TE STING from Last 3 Months Care Teams Manager Long Term Care Relationship Specialty Start Date End Date Diego Castañeda [place] [address] [place] [address] Assigned PCP 05/29/21
== END 2024-01-24 15:27 | disposition home or self-care (01) ==
LOC: NFLDREF 01-25 08:42
PROVIDERS: PCP Family Medicine; Referring Provider Family Medicine; Visit Provider Physician Assistant
DX: R30.0 Dysuria (principal)
CPT/HCPCS: 87086

== ENCOUNTER 2024-01-27 10:22 | Emergency (ER) | payer BC, SELFPAY ==
[2024-01-27 10:27] VITALS: BP 129/84; RESP 18; TEMP 36.9; O2SAT 97; BMI 25.1
[2024-01-27 10:47] VITALS: PULSE 74
--- NOTE | 2024-01-27 11:14 | CRLHL7_ITS ---
For Patients: As a result of the 21st Century Cures Act, medical imaging exams and procedure reports are released immediately into your electronic medical record. You may view this report before your referring provider. If you have questions, please contact your health care provider. INDICATION: Three day history of right flank pain. COMPARISON: Ultrasound 08/05/2022. TECHNIQUE: CT of the abdomen and pelvis with 79 cc of Isovue 370 intravenous contrast. Please note that all CT scans at this facility use dose modulation, iterative reconstruction, and/or weight-based dosing when appropriate to reduce radiation dose to as low as reasonably achievable. FINDINGS: ABDOMEN Liver: Normal hepatic attenuation. 5 mm segment 6 posterior subcapsular cyst (2; 54). Additional too small to characterize round circumscribed hypodensity in segment 4A of the left hepatic lobe (2; 22) statistically likely to represent a cyst for which no further workup for ongoing imaging surveillance is indicated. Focal fatty infiltration of the left hepatic lobe adjacent to the intersegmental fissure. No suspicious focal hepatic lesion. No intrahepatic biliary ductal dilatation. Patent portal and hepatic veins. Gallbladder: Normal gallbladder size. Normal common duct caliber. No pericholecystic inflammatory changes. Pancreas: Normal pancreatic attenuation. No focal lesion. Normal duct caliber. No peripancreatic inflammatory changes. Spleen: Normal splenic attenuation. No suspicious focal lesion. Patent splenic artery and vein. Adrenal Glands: Symmetrical adrenal glands. No focal lesion of significance. Kidneys: Normal bilateral renal attenuation. No suspicious focal lesion. No obstructing nephrolith or dilatation of the intrarenal collecting systems. Patent renal arteries and veins. Nondilated upper urinary tracts. Gastrointestinal tract: Normal caliber, attenuation and wall thickness of the gastrointestinal tract. No inflammatory changes. Normal mesentery. Normal appendix. Vascular: Abdominal aorta and its major proximal branches including the celiac, superior mesenteric, inferior mesenteric, renal, and bilateral common iliac arteries are patent. Inferior vena cava, portal and superior mesenteric veins are patent. Additional findings: No incidental adenopathy. No significant ascites, free fluid or pneumoperitoneum. PELVIS No bladder lesion is identified. 3.2 cm thin-walled simple left ovarian cyst (series 2; image 12) for which no further workup is indicated according to published management guidelines (ACR white paper). No abnormal free fluid. Apparent interval hysterectomy. Please correlate with the patient`s surgical history. No incidental adenopathy. SKELETON AND BODY WALL No acute or suspicious incidental findings. Fat containing umbilical hernia. LOWER THORAX Partially included lower thoracic wall, lungs, pleural spaces and mediastinum are otherwise without significant incidental findings. IMPRESSION: No imaging findings to explain the history of right flank pain. Incidental findings as above. Please note that all CT scans at this facility use dose modulation, iterative reconstruction, and/or weight-based dosing when appropriate to reduce radiation dose to as low as reasonably achievable. Dictated by Mitchell Mills MD @ 01/27/2024 12:29:02 PM (Electronically Signed)
--- NOTE | 2024-01-27 11:15 | CRLHL7_ITS ---
For Patients: As a result of the Century Cures Act, medical imaging exams and procedure reports are released immediately into your electronic medical record. You may view this report before your referring provider. If you have questions, please contact your health care provider. INDICATION: Right flank pain. TECHNIQUE: Chest 1 views. COMPARISON: None. FINDINGS: Cardiovascular and mediastinum: Heart size and vasculature are normal in caliber and appearance. Lungs and pleural spaces: Lungs are clear. No sign of infiltrate or mass. No sign of pleural effusion. No pneumothorax. Bones and soft tissues: No significant findings. IMPRESSION: No acute or significant findings. Dictated by Dominik Zhao MD @ 01/27/2024 12:01:18 PM (Electronically Signed)
--- NOTE | 2024-01-27 11:17 | ED.GENADULT ---
HPI - General Adult General Date Seen: 01/27/24 Chief complaint: Flank Pain Stated complaint: kidney infection not getting better Time Seen by Provider: 01/27/24 11:04 Source: patient, RN notes reviewed and old records reviewed Mode of arrival: ambulatory Limitations: no limitations History of Present Illness HPI narrative: Patient is a 33-year-old woman who presents for right lower back and room abdominal pain which started several days ago. She was seen in clinic, was having frequency and urgency, as well as chills. UA was done which showed 0-2 red cells and 2-5 white cells. She was started on Bactrim with a presumptive diagnosis of pyelonephritis. Culture has since returned negative. She says the day after she was seen she spiked a fever to 101 and had fevers on and off for the next couple of days. She says those resolved yesterday but she still has pain. She is having sweats at night. She says the pain is much more severe when she lays down and she feels best standing up. She has not had an appetite, she gets nauseated if she tries to eat. She has not had vomiting. She has not had a bowel movement for several days but attributes that to the fact that she is not eating. She has not had diarrhea or bloody stools. She does have a history of endometriosis but this feels quite different. She is status post hysterectomy about 6 months ago. She has tried Tylenol without relief, has avoided ibuprofen because of the pyelonephritis diagnosis. Denies other abdominal surgeries. She does not smoke or drink. Related Data Home Medications ?Medication ?Instructions ?Recorded ?Confirmed multivitamin (Multiple Vitamins 1 tab PO QAM 07/16/22 01/24/24 tablet) methotrexate sodium 2.5 mg tablet 15 mg PO QWEEK 06/16/23 01/24/24 Previous Rx's ?Medication ?Instructions ?Recorded docusate sodium 100 mg capsule 100 mg PO BID PRN Constipation 09/28/23 #100 caps ibuprofen 600 mg tablet 600 mg PO Q6H #30 tabs 09/28/23 sennosides 8.6 mg tablet (senna) 8.6 mg PO BID #30 tabs 10/11/23 bupropion HCl 300 mg 24 hr tablet, 300 mg PO QAM #90 tabs 11/04/23 extended release (Wellbutrin XL) naltrexone 50 mg tablet 50 mg PO QDAY #90 tabs 11/04/23 sulfamethoxazole 800 1 tab PO BID 7 days #14 tabs 01/24/24 mg-trimethoprim 160 mg tablet (Bactrim DS) Allergies Allergy/AdvReac Type Severity Reaction Status Date / Time No Known Drug Allergies Allergy Verified 01/24/24 15:23 Review of Systems Status of ROS: Reports: 10 or more systems reviewed and unremarkable except as noted in History and below PFSH PFS Medical History Endometriosis determined by laparoscopy (09/28/23) ?N80.9 - Endometriosis, unspecified (ICD-10) Atrial fibrillation ?I48.91 - Unspecified atrial fibrillation (ICD-10) Abscess after procedure ?T81.49XA - Infection following a procedure, other surgical site, initial encounter (ICD-10) Surgical History Status post laparoscopic hysterectomy (09/28/23) ?Z90.710 - Acquired absence of both cervix and uterus (ICD-10) S/P section (12/15/16) ?Z98.891 - History of uterine scar from previous surgery (ICD-10) Family History Mother Breast cancer Paternal Grandmother Dementia Paternal Grandfather Bone cancer Lung cancer Social History Narrative: Cis-gender, heterosexual woman. Relationship status: . Spouse/Partner: Ovi Education: Bachelor's degree Occupation: [employer] Tobacco: Lifetime nonsmoker E-cigarettes: No Alcohol: Yes, 1 serving/week Illicit/recreational drugs: No Safety concerns at home or work: No Dietary restriction(s): No Exercise: Yes: Cardio exercise 3 days per week for at least 30 minutes per day. What is your current living situation?: I presently have a place to live Problems where you live: no known problems In the past 12 months, utilities in danger of being shut off: no In past 12 months, lack of transportation kept you from medical appts, meetings, work, or getting things needed for daily living: no In the past 12 mos, have been you worried that your food would run out before you had money to buy more?: never true In the past 12 mos, the food you bought just didn't last and you didn't have money to buy more?: never true Highest level of school completed/degree received: Bachelor's degree Smoking Status: Never smoker How often do you have a drink containing alcohol: monthly or less How many standard drinks containing alcohol do you have on a typical day: 1 or 2 How often do you have six or more drinks on one occasion: Never AUDIT-C Alcohol total score: 1 Non-prescribed substance use: denies use Caffeine: Yes How often does anyone, including family, friends and others, physically hurt you: never How often does anyone, including family, friends and others, insult or talk down to you: never How often does anyone, including family, friends and others, threaten you with harm: never How often does anyone, including family, friends and others, scream or curse at you: never service: No Exam Narrative: Exam Narrative: Vital signs as noted above. In general, an alert, nontoxic woman. She sitting upright in bed. Head: Normocephalic, atraumatic. Eyes: Pupils are equal reactive. Extraocular movements are full. Conjunctivae are normal. ENT: Mucous membranes are moist. Throat is normal. Neck: Supple without lymphadenopathy. Heart: Regular rate and rhythm. No murmur or rub. Lungs: Lungs are clear but breath sounds are decreased at the right base. No increased work of breathing. No CVA tenderness. Abdomen: Soft and nondistended. She has some tenderness to deep palpation in the right lower and right lateral abdomen in. She notes some rebound tenderness. She does not have any guarding. Negative Saini's. Extremities: Well perfused. No edema. No calf tenderness. Pulses intact. Neurologic: Patient is alert and oriented to person and place. Speech is fluent. Face is symmetric. Moves all extremities equally. Affect: Normal. Skin: Warm and dry. Well perfused. Const: Vital Signs, click to edit/add: Vital Signs - 24 hr 01/27/24 10:27 01/27/24 10:47 Temperature 98.4 F Pulse Rate [Right Pulse Oximeter] 74 Respiratory Rate 18 Blood Pressure [Ri ght Upper Arm] 129/84 Pulse Oximetry 97 Oxygen Delivery Me thod Room Air Documenting provider has reviewed patient's vital signs: yes Course Course ED Course: Records were reviewed, as mentioned, UA was normal and urine culture was negative, which I think makes the diagnosis of pyelonephritis less likely. Nonetheless will repeat a UA, I think imaging is warranted to look for alternate diagnoses such as cholecystitis, appendicitis, diverticulitis, consider also pancreatitis, gastritis, ovarian pathology. Labs pending. Will try some Toradol and Zofran as well as IV fluids to start and see how she does from a symptomatic standpoint. Additional pain medications if needed. Patient feeling improved after medications, resting comfortably. Evaluation so far is pretty unrevealing. CT of the abdomen by my review showed no stranding of the kidney, no hydronephrosis or kidney stone, no findings to suggest appendicitis, no free fluid in the pelvis. Final radiology read as follows:FINDINGS: ABDOMEN Liver: Normal hepatic attenuation. 5 mm segment 6 posterior subcapsular cyst (2; 54). Additional too small to characterize round circumscribed hypodensity in segment 4A of the left hepatic lobe (2; 22) statistically likely to represent a cyst for which no further workup for ongoing imaging surveillance is indicated. Focal fatty infiltration of the left hepatic lobe adjacent to the intersegmental fissure. No suspicious focal hepatic lesion. No intrahepatic biliary ductal dilatation. Patent portal and hepatic veins. Gallbladder: Normal gallbladder size. Normal common duct caliber. No pericholecystic inflammatory changes. Pancreas: Normal pancreatic attenuation. No focal lesion. Normal duct caliber. No peripancreatic inflammatory changes. Spleen: Normal splenic attenuation. No suspicious focal lesion. Patent splenic artery and vein. Adrenal Glands: Symmetrical adrenal glands. No focal lesion of significance. Kidneys: Normal bilateral renal attenuation. No suspicious focal lesion. No obstructing nephrolith or dilatation of the intrarenal collecting systems. Patent renal arteries and veins. Nondilated upper urinary tracts. Gastrointestinal tract: Normal caliber, attenuation and wall thickness of the gastrointestinal tract. No inflammatory changes. Normal mesentery. Normal appendix. Vascular: Abdominal aorta and its major proximal branches including the celiac, superior mesenteric, inferior mesenteric, renal, and bilateral common iliac arteries are patent. Inferior vena cava, portal and superior mesenteric veins are patent. Additional findings: No incidental adenopathy. No significant ascites, free fluid or pneumoperitoneum. PELVIS No bladder lesion is identified. 3.2 cm thin-walled simple left ovarian cyst (series 2; image 12) for which no further workup is indicated according to published management guidelines (ACR white paper). No abnormal free fluid. Apparent interval hysterectomy. Please correlate with the patient`s surgical history. No incidental adenopathy. SKELETON AND BODY WALL No acute or suspicious incidental findings. Fat containing umbilical hernia. LOWER THORAX Partially included lower thoracic wall, lungs, pleural spaces and mediastinum are otherwise without significant incidental findings. IMPRESSION: No imaging findings to explain the history of right flank pain. Incidental findings as above. Will go ahead and order a pelvic ultrasound just to ensure that the right kidney is normal in appearance and has good blood flow, my suspicion for torsion clinically is relatively low given overall clinical picture and absence of right-sided cyst or ovarian enlargement at this time on CT. Patient remains comfortable at this time. Final radiology read of pelvic ultrasound as follows:FINDINGS: Uterus/endometrium: Postsurgical changes of hysterectomy. Right ovary 4.1 x 2.2 x 2.9 centimeters. Left ovary 4.9 x 3.1 x 3.9 centimeters. There are 2 complex cystic lesions in the left ovary, which measure 3.3 x 2.2 x 2.9 centimeters and 1.6 x 2.1 x 2.2 centimeters. Normal arterial and venous blood flow is demonstrated in both ovaries. Cul-de-sac: No significant free fluid. IMPRESSION: TWO complex cystic lesions in the left ovary, measuring up to 3.3 and 2.2 centimeters. Differential includes endometriomas versus hemorrhagic cysts. No torsion. Consider short-term ultrasound in 8 weeks if medically necessary. Results discussed with patient, consider follow-up with gynecology relating to the ovarian cyst on the left, suspect these may be related to endometriosis based on her history and absence of symptoms on the left, regarding her right-sided symptoms, I do not have an obvious explanation at this time although do not see any evidence clinically to suggest pyelonephritis, appendicitis, kidney stone, or acute ovarian pathology on the right. She feels comfortable using ibuprofen and Tylenol at home. I would recommend follow-up in the next few days if not improving and return to the ER for acute worsening or if she develops fevers again. She is comfortable with that plan. Vital Signs Vital signs: Initial Vital Signs Temperature 98.4 F 01/27/24 10:27 Temperature Source Temporal Artery Scan 01/27/24 10:27 Respiratory Rate 18 01/27/24 10:27 Blood Pressure 129/84 01/27/24 10:27 Blood Pressure Mean 99 01/27/24 10:27 Blood Pressure Position Sitting 01/27/24 10:27 Pulse Oximetry 97 01/27/24 10:27 Oxygen Delivery Method Room Air 01/27/24 10:27 Vital Signs Temperature 98.4 F 01/27/24 10:27 Respiratory Rate 18 01/27/24 10:27 Blood Pressure 129/84 01/27/24 10:27 Pulse Oximetry 97 01/27/24 10:27 Oxygen Delivery Method Room Air 01/27/24 10:27 Temperature 98.4 F 01/27/24 10:27 Pulse Rate 74 01/27/24 10:47 Respiratory Rate 18 01/27/24 10:27 Blood Pressure 129/84 01/27/24 10:27 Pulse Oximetry 97 01/27/24 10:27 Oxygen Delivery Method Room Air 01/27/24 10:27 Medications Administered Medications: Discontinued Medications Generic Name Dose Route Start Last Admin Trade Name Kevinq PRN Reason Stop Dose Admin Sodium Chloride 1,000 mls @ 1,000 mls/hr 01/27/24 11:15 01/27/24 13:06 0.9 % Sodium Chloride 1000 Ml IV 01/27/24 12:14 Infused .Q1H KING Infusion Ketorolac Tromethamine 15 mg 01/27/24 11:14 01/27/24 11:38 Ketorolac 15 Mg/Ml Inj IVP 01/27/24 11:15 15 mg ONCE ONE Administration Ondansetron HCl 4 mg 01/27/24 11:14 01/27/24 11:38 Ondansetron 2 Mg/Ml Inj IVP 01/27/24 11:15 4 mg ONCE ONE Administration Medical Decision Making Lab Data Labs: Lab Results 01/27/24 01/27/24 Range/Units 11:36 13:10 WBC 6.37 (4.50-11.00) K/uL RBC 4.76 (4.00-5.20) m/uL Hgb 13.7 (12.0-16.0) gm/dL Hct 40.1 (33.0-51.0) % MCV 84 (80-100) fL MCH 29 (26-34) pg MCHC 34 (32-36) gm/dL RDW Coeff of Lianna 14.1 (11.5-15.5) % Plt Count 158 (140-440) K/uL Neut % (Auto) 44.2 (42.0-72.0) % Lymph % (Auto) 42.2 (20-44) % [place] % (Auto) 9.3 (0.0-11.0) % Eos % (Auto) 3.5 (0.0-7.0) % Baso % (Auto) 0.6 (0.0-3.0) % Neut # (Auto) 2.82 (1.7-7.0) K/uL Lymph # (Auto) 2.69 (0.90-2.90) K/uL [place] # (Auto) 0.60 (0.00-0.90) K/UL Eos # (Auto) 0.22 (0.00-0.50) K/uL Baso # (Auto) 0.04 (0.00-0.30) K/uL Abs Immat Gran (auto) 0.01 (0.00-0.30) K/uL Imm/Tot Granulo (auto) 0.2 % Sodium 135 (135-149) mmol/L Potassium 3.6 (3.6-5.1) mmol/L Chloride 100 (96-114) mmol/L Carbon Dioxide 27 (20-32) mmol/L Anion Gap 8 (7-15) mEq/L BUN 7 (5-24) mg/dL Creatinine 0.7 (0.5-1.5) mg/dL Estimated Creat Clear 110.12 Estimated GFR 116 ml/min Glucose 91 (60-115) mg/dL Calcium 9.1 (8.4-10.6) mg/dL Total Bilirubin 0.5 (0.1-1.5) mg/dL Direct Bilirubin 0.3 (0.0-0.5) mg/dL AST 81 H (12-35) U/L ALT 93 H (4-35) U/L Alkaline Phosphatase 68 (40-150) U/L C-Reactive Protein 4.0 H (0.5-1.0) mg/dL Total Protein 7.7 (6.0-8.3) g/dL Albumin 4.4 (3.3-5.0) g/dL Lipase 98 (23-300) U/L Urine Color Yellow (Yellow) Urine Appearance Clear (Clear) Urine pH 5.5 (5.0-8.5) Ur Specific [place] <= 1.005 (1.000-1.030) Urine Protein Negative (Negative) Urine Glucose (UA) Negative (Negative) Urine Ketones 3+ A (Negative) Urine Blood Negative (Negative) Urine Nitrite Negative (Negative) Urine Bilirubin Negative (Negative) Urine Urobilinogen 2.0 A (0.2-1.0) Ur Leukocyte Esterase Negative (Negative) Urine RBC 0-2 (0-2) Urine WBC 0-2 (0-5) Ur Squamous Epith Cells Few (None-Few) Urine Bacteria None (None) SARS-CoV-2 (PCR) Negative SARS-CoV-2 (Negative) Influenza Type A (PCR) Negative PCR FLU A (Negative) Influenza Type B (PCR) Negative PCR FLU B (Negative) RSV (PCR) Negative PCR RSV (Negative) Discharge Plan Discharge Clinical Impression: Abdominal pain, Hx of endometriosis Patient Disposition: Home, Self-Care Condition: Improved Instructions: Abdominal Pain (ED) Additional Instructions: Ibuprofen and/or Tylenol as needed. Your evaluation today does not show any obvious cause for your pain, although typically we do not see anything on imaging related to endometriosis. If you are not feeling better over the next few days, please follow up with primary care. Return any time for recurrent fevers, vomiting, severe uncontrolled pain or other concerns. Prescriptions: No Action methotrexate sodium 2.5 mg tablet 15 mg PO QWEEK sulfamethoxazole-trimethoprim [Bactrim DS] 800-160 mg tablet 1 tab PO BID 7 Days Qty: 14 0RF multivitamin [Multiple Vitamins] Tablet 1 tab PO QAM docusate sodium 100 mg Capsule 100 mg PO BID PRN (Reason: Constipation) Qty: 100 0RF ibuprofen 600 mg Tablet 600 mg PO Q6H Qty: 30 0RF sennosides [senna] 8.6 mg tablet 8.6 mg PO BID Qty: 30 1RF bupropion HCl [Wellbutrin XL] 300 mg tablet extended release 24 hr 300 mg PO QAM Qty: 90 3RF naltrexone 50 mg tablet 50 mg PO QDAY Qty: 90 3RF Hold Instructions: Resume on 10/06/23. Follow Up/Referrals: Magy Vaca MD [Primary Care Provider] - Stand Alone Forms: MyHealth Info Instructions
[2024-01-27] MEDS: KETOROLAC 15 MG/ML inj IVP (11:38)
[2024-01-27] MEDS: 0.9 % SODIUM CHLORIDE 1000 ml 1,000 ML IV (11:38)
[2024-01-27] MEDS: ONDANSETRON 2 MG/ML inj 4 MG IVP (11:38)
[2024-01-27 11:43] LABS: Basophils Absolute Auto 0.04 K/uL (0.00-0.30); Basophils Percent Auto 0.6 % (0.0-3.0); Eosinophils Absolute Auto 0.22 K/uL (0.00-0.50); Eosinophils Percent Auto 3.5 % (0.0-7.0); Hematocrit 40.1 % (33.0-51.0); Hemoglobin* 13.7 gm/dL (12.0-16.0); Immature Granulocytes Abs Auto 0.01 K/uL (0.00-0.30); Immature Granulocytes Pct Auto 0.2 %; Lymphocytes Absolute Auto 2.69 K/uL (0.90-2.90); Lymphocytes Percent Auto 42.2 % (20-44); Mean Corpuscular HGB Conc 34 gm/dL (32-36); Mean Corpuscular Hemoglobin 29 pg (26-34); Mean Corpuscular Volume 84 fL (80-100); Monocytes Percent Auto 9.3 % (0.0-11.0); Neutrophils Absolute Auto 2.82 K/uL (1.7-7.0); Neutrophils Percent Auto 44.2 % (42.0-72.0); Platelet Count* 158 K/uL (140-440); RDW Coefficient of Variation % 14.1 % (11.5-15.5); Red Blood Count 4.76 m/uL (4.00-5.20); White Blood Count* 6.37 K/uL (4.50-11.00)
[2024-01-27 11:45] LABS: Slide Review Reflex No
[2024-01-27 11:57] LABS: Chloride* 100 mmol/L (96-114); Potassium* 3.6 mmol/L (3.6-5.1); Sodium* 135 mmol/L (135-149)
[2024-01-27 11:58] LABS: Albumin* 4.4 g/dL (3.3-5.0)
[2024-01-27 12:00] LABS: Anion Gap 8 mEq/L (7-15); Blood Urea Nitrogen* 7 mg/dL (5-24); Carbon Dioxide* 27 mmol/L (20-32); Creatinine* 0.7 mg/dL (0.5-1.5); Est. Creatinine Clearance* 110.12; Estimated Glomerular Filt Rate 116 ml/min
[2024-01-27 12:01] LABS: Alkaline Phosphatase* 68 U/L (40-150); Aspartate Amino Transferase* 81 U/L (12-35); Bilirubin Direct* 0.3 mg/dL (0.0-0.5); Bilirubin Total* 0.5 mg/dL (0.1-1.5); Calcium* 9.1 mg/dL (8.4-10.6); Glucose* 91 mg/dL (60-115); Total Protein* 7.7 g/dL (6.0-8.3)
[2024-01-27 12:02] LABS: Alanine Aminotransferase* 93 U/L (4-35); Lipase* 98 U/L (23-300)
[2024-01-27 12:20] LABS: PCR FLU A Negative PCR FLU A (Negative); PCR FLU B Negative PCR FLU B (Negative); PCR RSV Negative PCR RSV (Negative); SARS PCR* Negative SARS-CoV-2 (Negative)
--- NOTE | 2024-01-27 12:58 | CRLHL7_ITS ---
For Patients: As a result of the Cures Act, medical imaging exams and procedure reports are released immediately into your electronic medical record. You may view this report before your referring provider. If you have questions, please contact your health care provider. INDICATION: Right lower quadrant pain. TECHNIQUE: Ultrasound pelvis transabdominal and transvaginal. Real-time sonographic images with spectral and color Doppler imaging of the ovaries were obtained. COMPARISON: None. FINDINGS: Uterus/endometrium: Postsurgical changes of hysterectomy. Right ovary 4.1 x 2.2 x 2.9 centimeters. Left ovary 4.9 x 3.1 x 3.9 centimeters. There are 2 complex cystic lesions in the left ovary, which measure 3.3 x 2.2 x 2.9 centimeters and 1.6 x 2.1 x 2.2 centimeters. Normal arterial and venous blood flow is demonstrated in both ovaries. Cul-de-sac: No significant free fluid. IMPRESSION: TWO complex cystic lesions in the left ovary, measuring up to 3.3 and 2.2 centimeters. Differential includes endometriomas versus hemorrhagic cysts. No torsion. Consider short-term ultrasound in 8 weeks if medically necessary. Dictated by Dominik Zhao MD @ 01/27/2024 2:00:10 PM (Electronically Signed)
[2024-01-27 13:25] LABS: Appearance Urine Clear (Clear); Bilirubin Urine Negative (Negative); Blood Urine Negative (Negative); Color Urine Yellow (Yellow); Glucose Urine Negative (Negative); Ketones Urine 3+ (Negative); Leukocyte Esterase Urine Negative (Negative); Nitrite Urine Negative (Negative); Protein Urine Negative (Negative); Specific Gravity Urine <= 1.005 (1.000-1.030); pH Urine 5.5 (5.0-8.5)
[2024-01-27 13:30] LABS: RBC Urine 0-2 (0-2); Squamous Epithelial Cell Urine Few (None-Few); WBC Urine 0-2 (0-5)
== END 2024-01-27 14:33 | disposition home or self-care (01) ==
PROVIDERS: Emergency Provider Emergency Medicine; PCP Family Medicine
DX: R10.9 Unspecified abdominal pain (principal)
CPT/HCPCS: 36415; 71045; 74177; 76830; 80048; 80076; 81001; 83690; 85025; 86140; 87631; 93976; 99284; 99285; J1885; J2405; J7030; Q9967

== ENCOUNTER 2024-07-28 08:04 | Outpatient (CLI) | payer BC, SELFPAY ==
[2024-07-28 12:37] LABS: Alanine Aminotransferase* 73 U/L (4-35); Aspartate Amino Transferase* 24 U/L (12-35)
== END 2024-07-28 08:05 | disposition home or self-care (01) ==
LOC: NPINS 08:05
PROVIDERS: PCP Family Medicine; Visit Provider Internal Medicine Rheumatology
DX: R94.5 Abnormal results of liver function studies (principal)
CPT/HCPCS: 84450; 84460

== ENCOUNTER 2024-10-11 07:55 | Outpatient (CLI) | payer BC, SELFPAY | END 2024-10-11 07:56 | disposition home or self-care (01) | LOC: FRMREF 07:57 | PROVIDERS: PCP Family Medicine; Visit Provider Physician Assistant Medical | DX: R10.31 Right lower quadrant pain (principal); R82.90 Unspecified abnormal findings in urine | CPT/HCPCS: 80053; 87086 ==

== ENCOUNTER 2024-10-12 10:58 | Emergency (ER) | payer BC, SELFPAY ==
[2024-10-12] VITALS (11 sets, daily range): BP systolic 112–136; BP diastolic 60–92; PULSE 76–92; RESP 16; TEMP 37.2; O2SAT 93–98; BMI 25.5
--- OUTSIDE RECORDS SUMMARY | 2024-10-12 11:00 | XMS_ITS | Data Portability ---
Author Organization [place] - [facility], 1- [facility] Outpatient Address [address] [place] [address] Care Team Providers Care Novelty Chain Maker Name Role Phone RYLIE RHODES Primary Care Provider Assessment Encounter Date Assessment Date Assessment LastModified by Organization Details LastModified Time 12/24/2014 12/24/2014 IMPRESSION: 1.SLE. The patient has a history of SLE that is currently being managed with Plaquenil and Methotrexate. She has had a flare for the past 10 days, which she feels is most likely related to the excessive heat. She was previously from [place] and it has been difficult to navigate the heat. She has had worsening arthralgias, fatigue, oral ulcers, and alopecia. She denies any rashes. It is felt she would benefit from a Prednisone taper. She will be started at 30 mg and decrease by 5 mg q.d. She was told if necessary this could be repeated. If her arthralgias do not improve after the taper, her Methotrexate could be increased to 6 tablets per week. For now, she would prefer to keep it at 5 tablets per week. 2.Hyperthyroidism. The patient will make a follow up appointment with endocrinology to discuss her previous palpitations that have not been clearly related to her hyperthyroidism. 3.Left cervical radiculopathy. The patient will be given a refill of Tramadol and Flexeril. She is calling to schedule her MRI of the cervical spine and had deferred this partially due to insurance changes. 4.Migraines. The patient will continue Excedrin Migraine p.r.n. PLAN: 1. Laboratory studies as below. 2. Prednisone taper beginning at 30 mg and decreasing by 5 mg q.d. 3. Refill Folic Acid, Flexeril and Tramadol. 4. Return to the clinic in 3 months. Wilma Lorenz M.D. Transcribed by jerrica/12-24-2014 Not available 12/24/2014 20:34:47 02/27/2015 02/27/2015 IMPRESSION: 1.) Left shoulder pain. 2.) Neck pain. DISPOSITION: Discussed extensively with patient treatment risks, benefits, precautions, expectations, and alternate options. Patient has now had a negative neck and shoulder MRI, and opts for a nerve conduction test to assess for nerve etiology. If negative, we will consider joint pain from her Lupus and treat accordingly. We will continue her conservative treatment as it is providing some relief. I will refill her prescriptions. She is comfortable with the agreed-upon treatment plan. [email or web address] Not available 02/28/2015 21:37:09 04/15/2015 04/15/2015 IMPRESSION: 1.SLE. The patient has a history of SLE that is currently well controlled on Methotrexate. She was previously given a trial of Plaquenil but did not have any efficacy. She denies any flares of her skin disease, joint disease, fatigue, ulcers or alopecia. She and her fianc may plan to conceive within a year and a half and she questions what can be done with her medications. She was told her Methotrexate should be discontinued for 12 weeks prior to beginning to conceive. She was told she would also require laboratory monitoring closer to the time to include anticardiolipin antibodies and a repeat SSA and SSB antibody. For now, she will continue her current regimen of Methotrexate. 2.Hypothyroidism. The patient will continue to follow up with endocrinology. She will most likely be taken off of her Methimazole at her next visit in June. 3.Left cervical radicular symptoms. The patient had a negative MRI performed on February 19, 2015. The possibility of a nerve conduction velocity study was considered, but the patient s symptoms have gradually improved. She has used Tramadol and Flexeril p.r.n. 4.Migraines. The patient denies any recent headaches. She has used Excedrin Migraine p.r.n. PLAN: 1. Continue Methotrexate. 2. A lab order was given for the patient to have her labs performed in [place] for CBC and CMP. 3. Return to the clinic in 3 months. Wimla Lorenz M.D. Transcribed by jerrica/04-15-2015 Not available 04/15/2015 13:16:36 07/15/2015 07/15/2015 IMPRESSION: 1.SLE. The patient has a history of SLE and has been treated with Methotrexate with improvement in her symptoms. She has had some increasing oral ulcers and alopecia and it is felt her dose should be decreased to 4 tablets a week. She will initially discontinue it for two weeks to allow all the ulcers to heal. She has also had some mild alopecia. She is currently on Folic Acid 2 mg q.d. and will continue this. The possibility of Leucovorin can be considered if her symptoms are refractory. Hopefully the lower dose and the increase of Methotrexate and the increased dose of Folic Acid will help alleviate her symptoms. 2.Hyperthyroidism. The patient has discontinued her Methimazole since her last visit. She will be following up with endocrinology to make sure there has been no change in her lab values. 3.Dyspnea. The patient reports she was seen by a mesmerist and had a full work up since her last visit. Her work up was unrevealing and she has been referred to cardiology whom she will see on August 08 . PLAN: 1. CBC, CMP. 2. Increase folic Acid to 2 mg q.d. 3. Decrease Methotrexate to 4 tablets per week. 4. Return to the clinic in 3 months. Wilma Lorenz M.D. Transcribed by jerrica/07-15-2015 Not available 07/15/2015 17:38:35 08/14/2015 08/14/2015 IMPRESSION: 1.SLE. The patient has a history of SLE treated with Methotrexate with improvement in her articular symptoms. She has been off the medication for a month because she did have significant oral ulcers at her last visit. Because of this, her Methotrexate dose was to be decreased from 6 tablets per week to 4 tablets per week. She has been off for one month, however, because there has been a flu virus going around her workplace that she did not want to acquire. She plans to reinitiate her Methotrexate within a week. She will be moving to [place] at the end of the month and will be given a prescription for a 90 day supply of Methotrexate. She will also have routine labs today, as well as immunology screening. She reports she and her almas bynum will be interested in conceiving within the next year and she will have lab work today to include anticardiolipin antibodies and her SSA and SSB. She is aware she would need at least a 12 week hiatus from using methotrexate before planning to conceive. 2.Dyspnea and history of palpitations. The patient had been seen by a mesmerist at her last visit and had a negative work up. She was seen by a commanding officer motorized squad earlier this month and apparently there was felt to be a potential cardiac etiology for her palpitations and dyspnea. It was recommended her anti-inflammatory regimen be increased or the possibility of narcotics be utilized. The patient is using Tramadol p.r.n. and she was told it would be preferable not to add more aggressive narcotics. She is in complete agreement with this. She had previously been on Nabumetone and it is felt reasonable to reinitiate this medication. 3.History of hyperthyroidism. The patient is currently off of her Methimazole, as it has not been felt her hyperthyroidism was contributing to her palpitations. PLAN: 1. Laboratory studies as below. 2. Refill Nabumetone and Methotrexate for 90 day supply. 3. Return to the clinic p.r.n. Wilma Lorenz M.D. Transcribed by [email or web address]/08-14-2015 Not available 08/14/2015 21:30:32 Plan of Treatment Reminders Order Date Submit Date Provider Last Modified By Organization Details Last Modified Time Details Appointments None recorded. Lab CBC w/ auto diff 2015 016 [place] [facility] ([facility]), [address] [place], [address], 6 06:40:10 sjogren antibody panel (ssa, ssb, ro, la), serum 2015 016 [place] [facility] ([facility]), [address] [place], [address], 6 06:40:13 urinalysis, complete 2015 016 [place] [facility] ([facility]), [address] [place], [address], 6 06:40:11 anticardiol ipin igg+igm+iga Ab, serum 2015 016 [facility] ([facility]), [address] [place], [address], 6 06:40:12 C reactive protein, QN, serum or plasma 2015 016 [facility] ([facility]), [address] [place], [address], 6 06:40:14 Wong AMIE + Ribonucleop rotein AMIE, quant, serum 2015 016 [facility] ([facility]), [address] [place], [address], 6 07:45:48 CMP, serum or plasma 2015 016 [facility], [address], [place], [address], 6 06:40:11 erythrocyte sedimentati on rate by westergren method 2015 016 [facility] ([facility]), [address] [place], [address], 6 07:45:48 dsDNA Ab, serum 2015 016 [facility] ([facility]), [address] [place], [address], 6 07:45:48 C3 + C4 (complement ), serum 2015 016 [facility] ([facility]), [address] [place], [address], 6 07:45:49 CBC w/ auto diff 2015 016 [place] [facility] ([facility]), [address] [facility], [place], [address], 6 06:35:16 CMP, serum or plasma 2015 016 [place] [facility], [address], [place], [address], 6 06:35:16 CBC w/ auto diff 2014 015 [place] [facility] ([facility]), [address] [facility], [place], [address], 5 11:43:57 CMP, serum or plasma 2014 015 [place] [facility], [address], [place], [address], 5 11:43:57 C3 + C4 (complement ), serum 2014 015 [place] [email or web address] ([facility]), [address] [facility], [place], [address], 5 08:18:27 C-reactive protein, quantitativ e, serum or plasma 2014 015 [place] [facility] ([facility]), [address] [facility], [place], [address], 5 14:47:42 dsDNA Ab, serum 2014 015 [place] [email or web address] ([facility]), [address] [facility], [place], [address], 5 08:18:28 CBC w/ auto diff 2014 015 [place] [facility] ([facility]), [address] [facility], [place], [address], 5 14:47:41 CMP, serum or plasma 2014 015 [place] [facility], [address], [place] [address], [place], [address], 5 14:47:41 erythrocyte sedimentati on rate by westergren method 2014 015 [email or web address] [facility] ([facility]), [address] [facility], [place], [address], 5 08:18:28 Referral electromyog hammad/nerve conduction referral - M54.12 R/O left cervical vs ulnar vs CTS follow up Radha 2014 015 [email or web address] Not available 5 15:21:34 Procedures None recorded. Surgeries None recorded. Imaging None recorded. Medication Orders methotrexat e sodium 2.5 mg tablet 2015 016 [place] [address] [facility] [id number], [address], [place], [place], [id number], 6 21:30:31 nabumetone 500 mg tablet 2015 016 [id number], [address], [place], [place], [id number], 6 21:30:31 methotrexat e sodium 2.5 mg tablet 2015 016 [facility] [address], [address], [place], [place], [id number], 6 17:38:34 folic acid 1 mg tablet 2015 016 [employer] [address], [address], [place], [place], [id number], 6 17:38:34 prednisone 5 mg tablets in a dose pack 2014 015 [facility] [address], [address], [place], [place], [id number], 6 14:26:02 folic acid 1 mg tablet [address] [facility], [address], [place], [place], [id number], 5 20:34:46 cyclobenzap rine 5 mg tablet [address] [facility], [address], [place], [place], [id number], 5 20:34:46 tramadol 50 mg tablet [address] [facility], [address], [place], [place], [id number], 5 20:34:47 Patient TargetsNo targets recorded. Patient InstructionsNo instructions recorded. Reason for Referral Electromyogram/nerve Conduct ion Referral for Displacement of cervical intervertebral disc without myelopathy M54.12 R/O left cervical vs ulnar vs CTS follow up Radha Referring Physician: Radha Chavira, Orthopedic Surgery, Encounter Date: 02/27/2015 Results Created Date Observation Date Name Description Value Unit Range Abnormal Flag Note LastModifiedBy Organization Detail LastModifiedTime 12/25/19 15 12/25/2014 C3 compl ement and DNA ds Ab complement C3, serum 117 mg/dL _adul t 90-180 Not Available [facility] ([facility]) [address] [facility], [place], [address], 12/25/2014 14:47:40 12/25/19 15 12/25/2014 C3 compl ement and DNA ds Ab anti-DNA (ds) Ab qn <1 IU/mL 0-9 NEGAT VU <5 EQUIV OCAL 5 - 9 POSIT VU >9 Not Available [facility] ([facility]) [address] [facility], [place], [address], 12/25/2014 14:47:40 12/25/19 15 12/25/2014 CBC w/ auto diff WBC 6.3 x10e3 /uL 3.4-10 .8 Not Available [facility] ([facility]) [address] [place], [address], 12/25/2014 14:47:40 12/25/19 15 12/25/2014 CBC w/ auto diff RBC 5.27 x10e6 /uL 3.77-5 .28 Not Available [facility] ([facility]) [address] [place], [address], 12/25/2014 14:47:40 12/25/19 15 12/25/2014 CBC w/ auto diff hemoglobin 15.0 g/dL 11.1-1 5.9 Not Available [facility] ([facility]) [address] [place], [address], 12/25/2014 14:47:40 12/25/19 15 12/25/2014 CBC w/ auto diff hematocrit 44.3 % 34.0-4 6.6 Not Available [facility] ([facility]) [address] [place], [address], 12/25/2014 14:47:40 12/25/19 15 12/25/2014 CBC w/ auto diff MCV 84 fL 79-97 Not Available [facility] ([facility]) [address] [place], [address], 12/25/2014 14:47:40 12/25/19 15 12/25/2014 CBC w/ auto diff MCH 28.5 pg 26.6-3 3.0 Not Available [facility] ([facility]) [address] [place], [address], 12/25/2014 14:47:40 12/25/19 15 12/25/2014 CBC w/ auto diff MCHC 33.9 g/dL 31.5-3 5.7 Not Available [facility] ([facility]) [address] [facility], [place], [address], 12/25/2014 14:47:40 12/25/19 15 12/25/2014 CBC w/ auto diff RDW 13.4 % 12.3-1 5.4 Not Available [facility] ([facility]) [address] [facility], [place], [address], 12/25/2014 14:47:40 12/25/19 15 12/25/2014 CBC w/ auto diff platelets 251 x10e3 /uL 150-37 9 Not Available [facility] ([facility]) [address] [facility], [place], [address], 12/25/2014 14:47:40 12/25/19 15 12/25/2014 CBC w/ auto diff neutrophils 55 % Not Available [facility] ([facility]) [address] [facility], [place], [address], 12/25/2014 14:47:40 12/25/19 15 12/25/2014 CBC w/ auto diff lymphs 38 % Not Available [facility] ([facility]) [address] [place], [address], 12/25/2014 14:47:40 12/25/19 15 12/25/2014 CBC w/ auto diff monocytes 6 % Not Available [facility] ([facility]) [address] [place], [address], 12/25/2014 14:47:40 12/25/19 15 12/25/2014 CBC w/ auto diff eos 0 % Not Available [facility] ([facility]) [address] [place], [address], 12/25/2014 14:47:40 12/25/19 15 12/25/2014 CBC w/ auto diff basos 1 % Not Available [facility] ([facility]) [address] [place], [address], 12/25/2014 14:47:40 12/25/19 15 12/25/2014 CBC w/ auto diff neutrophils (absolute) 3.5 x10e3 /uL 1.4-7. 0 Not Available [facility] ([facility]) [address] [place], [address], 12/25/2014 14:47:40 12/25/19 15 12/25/2014 CBC w/ auto diff lymphs (absolute) 2.4 x10e3 /uL 0.7-3. 1 Not Available [facility] ([facility]) [address] [place], [address], 12/25/2014 14:47:40 12/25/19 15 12/25/2014 CBC w/ auto diff monocytes(ab solute) 0.4 x10e3 /uL 0.1-0. 9 Not Available [facility] ([facility]) [address] [place], [address], 12/25/2014 14:47:40 12/25/19 15 12/25/2014 CBC w/ auto diff eos (absolute) 0.0 x10e3 /uL 0.0-0. 4 Not Available [facility] ([facility]) [address] [place], [address], 12/25/2014 14:47:40 12/25/19 15 12/25/2014 CBC w/ auto diff baso (absolute) 0.0 x10e3 /uL 0.0-0. 2 Not Available [facility] ([facility]) [address] [place], [address], 12/25/2014 14:47:40 12/25/19 15 12/25/2014 CBC w/ auto diff immature granulocytes 0 % Not Available [facility] ([facility]) [address] [place], [address], 12/25/2014 14:47:40 12/25/19 15 12/25/2014 CBC w/ auto diff immature grans (abs) 0.0 x10e3 /uL 0.0-0. 1 Not Available [facility] ([facility]) [address] [place], [address], 12/25/2014 14:47:40 12/25/19 15 12/25/2014 CMP, serum or plasm a glucose, serum 74 mg/dL 65-99 Not Available [facility] ([facility]) [address] [place], [address], 12/25/2014 14:47:41 12/25/19 15 12/25/2014 CMP, serum or plasm a BUN 7 mg/dL 6-20 Not Available [facility] ([facility]) [address] [place], [address], 12/25/2014 14:47:41 12/25/19 15 12/25/2014 CMP, serum or plasm a creatinine, serum 0.78 mg/dL 0.57-1 .00 Not Available [facility] ([facility]) [address] [place], [address], 12/25/2014 14:47:41 12/25/19 15 12/25/2014 CMP, serum or plasm a eGFR if nonafricn AM 106 mL/mi n/1.7 3 >59 Not Available [facility] ([facility]) [address] [place], [address], 12/25/2014 14:47:41 12/25/19 15 12/25/2014 CMP, serum or plasm a eGFR if africn AM 122 mL/mi n/1.7 3 >59 Not Available [facility] ([facility]) [address] [place], [address], 12/25/2014 14:47:41 12/25/19 15 12/25/2014 CMP, serum or plasm a BUN/creatini ne ratio 9 8-20 Not Available [facility] ([facility]) [address] [place], [address], 12/25/2014 14:47:41 12/25/19 15 12/25/2014 CMP, serum or plasm a sodium, serum 139 mmol/ L 134-14 4 Not Available [facility] ([facility]) [address] [place], [address], 12/25/2014 14:47:41 12/25/19 15 12/25/2014 CMP, serum or plasm a potassium, serum 4.5 mmol/ L 3.5-5. 2 Not Available [facility] ([facility]) [address] [place], [address], 12/25/2014 14:47:41 12/25/19 15 12/25/2014 CMP, serum or plasm a chloride, serum 99 mmol/ L 97-108 Not Available [facility] ([facility]) [address] [place], [address], 12/25/2014 14:47:41 12/25/19 15 12/25/2014 CMP, serum or plasm a carbon dioxide, total 22 mmol/ L 18-29 Not Available [facility] ([facility]) [address] [place], [address], 12/25/2014 14:47:41 12/25/19 15 12/25/2014 CMP, serum or plasm a calcium, serum 9.6 mg/dL 8.7-10 .2 Not Available [facility] ([facility]) [address] [place], [address], 12/25/2014 14:47:41 12/25/19 15 12/25/2014 CMP, serum or plasm a protein, total, serum 7.4 g/dL 6.0-8. 5 Not Available [facility] ([facility]) [address] [place] [address], [address], 12/25/2014 14:47:41 12/25/19 15 12/25/2014 CMP, serum or plasm a albumin, serum 4.4 g/dL 3.5-5. 5 Not Available [facility] ([facility]) [address] [place], [address], 12/25/2014 14:47:41 12/25/19 15 12/25/2014 CMP, serum or plasm a globulin, total 3.0 g/dL 1.5-4. 5 Not Available [facility] ([facility]) [address] [place], [address], 12/25/2014 14:47:41 12/25/19 15 12/25/2014 CMP, serum or plasm a A/G ratio 1.5 1.1-2. 5 Not Available [facility] ([facility]) [address] [place], [address], 12/25/2014 14:47:41 12/25/19 15 12/25/2014 CMP, serum or plasm a bilirubin, total 0.3 mg/dL 0.0-1. 2 Not Available [facility] ([facility]) [address] [place], [address], 12/25/2014 14:47:41 12/25/19 15 12/25/2014 CMP, serum or plasm a alkaline phosphatase, S 45 IU/L 39-117 Not Available [facility] ([facility]) [address] [place], [address], 12/25/2014 14:47:41 12/25/19 15 12/25/2014 CMP, serum or plasm a AST (SGOT) 12 IU/L 0-40 Not Available [facility] ([facility]) [address] [place], [address], 12/25/2014 14:47:41 12/25/19 15 12/25/2014 CMP, serum or plasm a ALT (SGPT) 9 IU/L 0-32 Not Available [facility] ([facility]) [address] [place], [address], 12/25/2014 14:47:41 12/25/19 15 12/25/2014 C4 (comp lemen t), serum or plasm a complement C4, serum 21 mg/dL _adul t 9-36 Not Available [facility] ([facility]) [address] [facility], [place], [address], 12/25/2014 14:47:42 12/25/19 15 12/25/2014 C-octavio ctive prote in, quant itati ve, serum or plasm a C-reactive protein, quant 4.8 mg/L 0.0-4. 9 Not Available [facility] ([facility]) [address] [facility], [place], [address], 12/25/2014 14:47:42 04/17/20 15 04/18/2015 CBC w/ auto diff WBC 7.1 x10e3 /uL 3.4-10 .8 Not Available [facility] ([facility]) [address] [facility], [place], [address], 04/18/2015 11:43:57 04/17/20 15 04/18/2015 CBC w/ auto diff RBC 4.98 x10e6 /uL 3.77-5 .28 Not Available [facility] ([facility]) [address] [place] [address], [place], [address], 04/18/2015 11:43:57 04/17/20 15 04/18/2015 CBC w/ auto diff hemoglobin 14.7 g/dL 11.1-1 5.9 Not Available [facility] ([facility]) [address] [place] [address], [place], [address], 04/18/2015 11:43:57 04/17/20 15 04/18/2015 CBC w/ auto diff hematocrit 43.3 % 34.0-4 6.6 Not Available [facility] ([facility]) [address] [place] [address], [address], 04/18/2015 11:43:57 04/17/20 15 04/18/2015 CBC w/ auto diff MCV 87 fL 79-97 Not Available [facility] ([facility]) [address] [facility], [place], [address], 04/18/2015 11:43:57 04/17/20 15 04/18/2015 CBC w/ auto diff MCH 29.5 pg 26.6-3 3.0 Not Available [facility] ([facility]) [address] [facility], [place], [address], 04/18/2015 11:43:57 04/17/20 15 04/18/2015 CBC w/ auto diff MCHC 33.9 g/dL 31.5-3 5.7 Not Available [facility] ([facility]) [address] [facility], [place], [address], 04/18/2015 11:43:57 04/17/20 15 04/18/2015 CBC w/ auto diff RDW 13.2 % 12.3-1 5.4 Not Available [facility] ([facility]) [address] [facility], [place], [address], 04/18/2015 11:43:57 04/17/20 15 04/18/2015 CBC w/ auto diff platelets 234 x10e3 /uL 150-37 9 Not Available [facility] ([facility]) [address] [facility], [place], [address], 04/18/2015 11:43:57 04/17/20 15 04/18/2015 CBC w/ auto diff neutrophils 55 % Not Available [facility] ([facility]) [address] [place], [address], 04/18/2015 11:43:57 04/17/20 15 04/18/2015 CBC w/ auto diff lymphs 36 % Not Available [facility] ([facility]) [address] [place] [address], [place], [address], 04/18/2015 11:43:57 04/17/20 15 04/18/2015 CBC w/ auto diff monocytes 8 % Not Available [facility] ([facility]) [address] [place], [address], 04/18/2015 11:43:57 04/17/20 15 04/18/2015 CBC w/ auto diff eos 1 % Not Available [facility] ([facility]) [address] [place], [address], 04/18/2015 11:43:57 04/17/20 15 04/18/2015 CBC w/ auto diff basos 0 % Not Available [facility] ([facility]) [address] [place], [address], 04/18/2015 11:43:57 04/17/20 15 04/18/2015 CBC w/ auto diff neutrophils (absolute) 3.9 x10e3 /uL 1.4-7. 0 Not Available [facility] ([facility]) [address] [place], [address], 04/18/2015 11:43:57 04/17/20 15 04/18/2015 CBC w/ auto diff lymphs (absolute) 2.6 x10e3 /uL 0.7-3. 1 Not Available [facility] ([facility]) [address] [place], [address], 04/18/2015 11:43:57 04/17/20 15 04/18/2015 CBC w/ auto diff monocytes(ab solute) 0.5 x10e3 /uL 0.1-0. 9 Not Available [facility] ([facility]) [address] [place], [address], 04/18/2015 11:43:57 04/17/20 15 04/18/2015 CBC w/ auto diff eos (absolute) 0.1 x10e3 /uL 0.0-0. 4 Not Available [facility] ([facility]) [address] [place] [address], [address], 04/18/2015 11:43:57 04/17/20 15 04/18/2015 CBC w/ auto diff baso (absolute) 0.0 x10e3 /uL 0.0-0. 2 Not Available [facility] ([facility]) [address] [place], [address], 04/18/2015 11:43:57 04/17/20 15 04/18/2015 CBC w/ auto diff immature granulocytes 0 % Not Available [facility] ([facility]) [address] [place] [address], [address], 04/18/2015 11:43:57 04/17/20 15 04/18/2015 CBC w/ auto diff immature grans (abs) 0.0 x10e3 /uL 0.0-0. 1 Not Available [facility] ([facility]) [address] [place], [address], 04/18/2015 11:43:57 04/17/20 15 04/18/2015 CMP, serum or plasm a glucose, serum 101 mg/dL 65-99 above high normal Not Available [facility] ([facility]) [address] [place] [address], [address], 04/18/2015 11:43:57 04/17/20 15 04/18/2015 CMP, serum or plasm a BUN 8 mg/dL 6-20 Not Available [facility] ([facility]) [address] [place] [address], [address], 04/18/2015 11:43:57 04/17/20 15 04/18/2015 CMP, serum or plasm a creatinine, serum 0.69 mg/dL 0.57-1 .00 Not Available [facility] ([facility]) [address] [place] [address], [address], 04/18/2015 11:43:57 04/17/20 15 04/18/2015 CMP, serum or plasm a eGFR if nonafricn AM 121 mL/mi n/1.7 3 >59 Not Available [facility] ([facility]) [address] [place], [address], 04/18/2015 11:43:57 04/17/20 15 04/18/2015 CMP, serum or plasm a eGFR if africn AM 140 mL/mi n/1.7 3 >59 Not Available [facility] ([facility]) [address] [facility], [place], [address], 04/18/2015 11:43:57 04/17/20 15 04/18/2015 CMP, serum or plasm a BUN/creatini ne ratio 12 8-20 Not Available [facility] ([facility]) [address] [place], [address], 04/18/2015 11:43:57 04/17/20 15 04/18/2015 CMP, serum or plasm a sodium, serum 145 mmol/ L 134-14 4 above high normal Not Available [facility] ([facility]) [address] [place], [address], 04/18/2015 11:43:57 04/17/20 15 04/18/2015 CMP, serum or plasm a potassium, serum 3.8 mmol/ L 3.5-5. 2 Not Available [facility] ([facility]) [address] [place] [address], [place], [address], 04/18/2015 11:43:57 04/17/20 15 04/18/2015 CMP, serum or plasm a chloride, serum 105 mmol/ L 97-108 Not Available [facility] ([facility]) [address] [place], [address], 04/18/2015 11:43:57 04/17/20 15 04/18/2015 CMP, serum or plasm a carbon dioxide, total 25 mmol/ L 18-29 Not Available [facility] ([facility]) [address] [place], [address], 04/18/2015 11:43:57 04/17/20 15 04/18/2015 CMP, serum or plasm a calcium, serum 9.7 mg/dL 8.7-10 .2 Not Available [facility] ([facility]) [address] [facility], [place], [address], 04/18/2015 11:43:57 04/17/20 15 04/18/2015 CMP, serum or plasm a protein, total, serum 7.0 g/dL 6.0-8. 5 Not Available [facility] ([facility]) [address] [facility], [place], [address], 04/18/2015 11:43:57 04/17/20 15 04/18/2015 CMP, serum or plasm a albumin, serum 4.3 g/dL 3.5-5. 5 Not Available [facility] ([facility]) [address] [facility], [place], [address], 04/18/2015 11:43:57 04/17/20 15 04/18/2015 CMP, serum or plasm a globulin, total 2.7 g/dL 1.5-4. 5 Not Available [facility] ([facility]) [address] [facility], [place], [address], 04/18/2015 11:43:57 04/17/20 15 04/18/2015 CMP, serum or plasm a A/G ratio 1.6 1.1-2. 5 Not Available [facility] ([facility]) [address] [place], [address], 04/18/2015 11:43:57 04/17/20 15 04/18/2015 CMP, serum or plasm a bilirubin, total 0.2 mg/dL 0.0-1. 2 Not Available [facility] ([facility]) [address] [place], [address], 04/18/2015 11:43:57 04/17/20 15 04/18/2015 CMP, serum or plasm a alkaline phosphatase, S 42 IU/L 39-117 Not Available [facility] ([facility]) [address] [place], [address], 04/18/2015 11:43:57 04/17/20 15 04/18/2015 CMP, serum or plasm a AST (SGOT) 13 IU/L 0-40 Not Available [facility] ([facility]) [address] [place], [address], 04/18/2015 11:43:57 04/17/20 15 04/18/2015 CMP, serum or plasm a ALT (SGPT) 6 IU/L 0-32 Not Available [facility] ([facility]) [address] [place], [address], 04/18/2015 11:43:57 07/15/19 16 07/16/2015 CBC w/ auto diff WBC 6.4 x10e3 /uL 3.4-10 .8 Not Available [facility] ([facility]) [address] [place], [address], 07/16/2015 06:35:16 07/15/19 16 07/16/2015 CBC w/ auto diff RBC 4.89 x10e6 /uL 3.77-5 .28 Not Available [facility] ([facility]) [address] [place], [address], 07/16/2015 06:35:16 07/15/19 16 07/16/2015 CBC w/ auto diff hemoglobin 14.2 g/dL 11.1-1 5.9 Not Available [facility] ([facility]) [address] [place], [address], 07/16/2015 06:35:16 07/15/1907/16/2015 CBC w/ auto diff hematocrit 41.7 % 34.0-4 6.6 Not Available [facility] ([facility]) [address] [place] [address], [address], 07/16/2015 06:35:16 07/15/19 16 07/16/2015 CBC w/ auto diff MCV 85 fL 79-97 Not Available [facility] ([facility]) [address] [facility], [place], [address], 07/16/2015 06:35:16 07/15/19 16 07/16/2015 CBC w/ auto diff MCH 29.0 pg 26.6-3 3.0 Not Available [facility] ([facility]) [address] [facility], [place], [address], 07/16/2015 06:35:16 07/15/1907/16/2015 CBC w/ auto diff MCHC 34.1 g/dL 31.5-3 5.7 Not Available [facility] ([facility]) [address] [facility], [place], [address], 07/16/2015 06:35:16 07/15/19 16 07/16/2015 CBC w/ auto diff RDW 13.4 % 12.3-1 5.4 Not Available [facility] ([facility]) [address] [facility], [place], [address], 07/16/2015 06:35:16 07/15/19 16 07/16/2015 CBC w/ auto diff platelets 234 x10e3 /uL 150-37 9 Not Available [facility] ([facility]) [address] [place], [address], 07/16/2015 06:35:16 07/15/19 16 07/16/2015 CBC w/ auto diff neutrophils 54 % Not Available [facility] ([facility]) [address] [facility], [place], [address], 07/16/2015 06:35:16 07/15/1907/16/2015 CBC w/ auto diff lymphs 37 % Not Available [facility] ([facility]) [address] [place], [address], 07/16/2015 06:35:16 07/15/19 16 07/16/2015 CBC w/ auto diff monocytes 8 % Not Available [facility] ([facility]) [address] [facility] [place], [address], 07/16/2015 06:35:16 07/15/19 16 07/16/2015 CBC w/ auto diff eos 0 % Not Available [facility] ([facility]) [address] [place], [address], 07/16/2015 06:35:16 07/15/1907/16/2015 CBC w/ auto diff basos 1 % Not Available [facility] ([facility]) [address] [place], [address], 07/16/2015 06:35:16 07/15/1907/16/2015 CBC w/ auto diff immature cells [employer] Not Available [facility] ([facility]) [address] [place], [address], 07/16/2015 06:35:16 07/15/1907/16/2015 CBC w/ auto diff neutrophils (absolute) 3.5 x10e3 /uL 1.4-7. 0 Not Available [facility] ([facility]) [address] [place], [address], 07/16/2015 06:35:16 07/15/1907/16/2015 CBC w/ auto diff lymphs (absolute) 2.4 x10e3 /uL 0.7-3. 1 Not Available [facility] ([facility]) [address] [place], [address], 07/16/2015 06:35:16 07/15/1907/16/2015 CBC w/ auto diff monocytes(ab solute) 0.5 x10e3 /uL 0.1-0. 9 Not Available [facility] ([facility]) [address] [place], [address], 07/16/2015 06:35:16 07/15/19 16 07/16/2015 CBC w/ auto diff eos (absolute) 0.0 x10e3 /uL 0.0-0. 4 Not Available [facility] ([facility]) [address] [facility], [place], [address], 07/16/2015 06:35:16 07/15/1907/16/2015 CBC w/ auto diff baso (absolute) 0.0 x10e3 /uL 0.0-0. 2 Not Available [facility] ([facility]) [address] [facility], [place], [address], 07/16/2015 06:35:16 07/15/1907/16/2015 CBC w/ auto diff immature granulocytes 0 % Not Available [facility] ([facility]) [address] [facility], [place], [address], 07/16/2015 06:35:16 07/15/1907/16/2015 CBC w/ auto diff immature grans (abs) 0.0 x10e3 /uL 0.0-0. 1 Not Available [facility] ([facility]) [address] [facility], [place], [address], 07/16/2015 06:35:16 07/15/1907/16/2015 CBC w/ auto diff NRBC [employer] Not Available [facility] ([facility]) [address] [facility], [place], [address], 07/16/2015 06:35:16 07/15/1907/16/2015 CBC w/ auto diff hematology comments: [employer] Not Available [facility] ([facility]) [address] [facility], [place], [address], 07/16/2015 06:35:16 07/15/1907/16/2015 CMP, serum or plasm a glucose, serum 103 mg/dL 65-99 above high normal Not Available [facility] ([facility]) [address] [place], [address], 07/16/2015 06:35:16 07/15/1907/16/2015 CMP, serum or plasm a BUN 8 mg/dL 6-20 Not Available [facility] ([facility]) [address] [place], [address], 07/16/2015 06:35:16 07/15/19 16 07/16/2015 CMP, serum or plasm a creatinine, serum 0.67 mg/dL 0.57-1 .00 Not Available [facility] ([facility]) [address] [place], [address], 07/16/2015 06:35:16 07/15/1907/16/2015 CMP, serum or plasm a eGFR if nonafricn AM 123 mL/mi n/1.7 3 >59 Not Available [facility] ([facility]) [address] [place], [address], 07/16/2015 06:35:16 07/15/1907/16/2015 CMP, serum or plasm a eGFR if africn AM 141 mL/mi n/1.7 3 >59 Not Available [facility] ([facility]) [address] [facility] [place], [address], 07/16/2015 06:35:16 07/15/1907/16/2015 CMP, serum or plasm a BUN/creatini ne ratio 12 8-20 Not Available [facility] ([facility]) [address] [facility] [place], [address], 07/16/2015 06:35:16 07/15/1907/16/2015 CMP, serum or plasm a sodium, serum 139 mmol/ L 134-14 4 Not Available [facility] ([facility]) [address] [facility] [place], [address], 07/16/2015 06:35:16 07/15/1907/16/2015 CMP, serum or plasm a potassium, serum 4.0 mmol/ L 3.5-5. 2 Not Available [facility] ([facility]) [address] [facility] [place], [address], 07/16/2015 06:35:16 07/15/1907/16/2015 CMP, serum or plasm a chloride, serum 102 mmol/ L 97-108 Not Available [facility] ([facility]) [address] [place], [address], 07/16/2015 06:35:16 07/15/19 16 07/16/2015 CMP, serum or plasm a carbon dioxide, total 23 mmol/ L 18-29 Not Available [facility] ([facility]) [address] [place], [address], 07/16/2015 06:35:16 07/15/1907/16/2015 CMP, serum or plasm a calcium, serum 9.5 mg/dL 8.7-10 .2 Not Available [facility] ([facility]) [address] [place], [address], 07/16/2015 06:35:16 07/15/1907/16/2015 CMP, serum or plasm a protein, total, serum 7.0 g/dL 6.0-8. 5 Not Available [facility] ([facility]) [address] [place], [address], 07/16/2015 06:35:16 07/15/1907/16/2015 CMP, serum or plasm a albumin, serum 4.1 g/dL 3.5-5. 5 Not Available [facility] ([facility]) [address] [place], [address], 07/16/2015 06:35:16 07/15/1907/16/2015 CMP, serum or plasm a globulin, total 2.9 g/dL 1.5-4. 5 Not Available [facility] ([facility]) [address] [place], [address], 07/16/2015 06:35:16 07/15/1907/16/2015 CMP, serum or plasm a A/G ratio 1.4 1.1-2. 5 Not Available [facility] ([facility]) [address] [place], [address], 07/16/2015 06:35:16 07/15/1907/16/2015 CMP, serum or plasm a bilirubin, total <0.2 mg/dL 0.0-1. 2 Not Available [facility] ([facility]) [address] [place], [address], 07/16/2015 06:35:16 07/15/1907/16/2015 CMP, serum or plasm a alkaline phosphatase, S 43 IU/L 39-117 Not Available [facility] ([facility]) [address] [place], [address], 07/16/2015 06:35:16 07/15/1907/16/2015 CMP, serum or plasm a AST (SGOT) 11 IU/L 0-40 Not Available [facility] ([facility]) [address] [place], [address], 07/16/2015 06:35:16 07/15/1907/16/2015 CMP, serum or plasm a ALT (SGPT) 7 IU/L 0-32 Not Available [facility] ([facility]) [address] [place], [address], 07/16/2015 06:35:16 08/14/1908/15/2015 infla mmati on panel , serum or plasm a complement C3, serum 106 mg/dL 82-167 Not Available [facility] ([facility]) [address] [place], [address], 08/17/2015 06:40:09 08/14/1908/15/2015 infla mmati on panel , serum or plasm a anti-DNA (ds) Ab qn <1 IU/mL 0-9 NEGAT VU <5 EQUIV OCAL 5 - 9 POSIT VU >9 Not Available [facility] ([facility]) [address] [place], [address], 08/17/2015 06:40:09 08/14/19 16 08/14/2015 CBC w/ auto diff WBC 6.2 x10e3 /uL 3.4-10 .8 Not Available [facility] ([facility]) [address] [facility] [place], [address], 08/17/2015 06:40:10 08/14/19 16 08/14/2015 CBC w/ auto diff RBC 4.92 x10e6 /uL 3.77-5 .28 Not Available [facility] ([facility]) [address] [facility] [place], [address], 08/17/2015 06:40:10 08/14/19 16 08/14/2015 CBC w/ auto diff hemoglobin 14.4 g/dL 11.1-1 5.9 Not Available [facility] ([facility]) [address] [facility], [place], [address], 08/17/2015 06:40:10 08/14/19 16 08/14/2015 CBC w/ auto diff hematocrit 42.3 % 34.0-4 6.6 Not Available [facility] ([facility]) [address] [facility], [place], [address], 08/17/2015 06:40:10 08/14/19 16 08/14/2015 CBC w/ auto diff MCV 86 fL 79-97 Not Available [facility] ([facility]) [address] [place], [address], 08/17/2015 06:40:10 08/14/19 16 08/14/2015 CBC w/ auto diff MCH 29.3 pg 26.6-3 3.0 Not Available [facility] ([facility]) [address] [place], [address], 08/17/2015 06:40:10 08/14/19 16 08/14/2015 CBC w/ auto diff MCHC 34.0 g/dL 31.5-3 5.7 Not Available [facility] ([facility]) [address] [facility], [place], [address], 08/17/2015 06:40:10 08/14/19 16 08/14/2015 CBC w/ auto diff RDW 12.9 % 12.3-1 5.4 Not Available [facility] ([facility]) [address] [facility], [place], [address], 08/17/2015 06:40:10 08/14/19 16 08/14/2015 CBC w/ auto diff platelets 203 x10e3 /uL 150-37 9 Not Available [facility] ([facility]) [address] [facility], [place], [address], 08/17/2015 06:40:10 08/14/19 16 08/14/2015 CBC w/ auto diff neutrophils 49 % Not Available [facility] ([facility]) [address] [facility], [place], [address], 08/17/2015 06:40:10 08/14/19 16 08/14/2015 CBC w/ auto diff lymphs 42 % Not Available [facility] ([facility]) [address] [facility], [place], [address], 08/17/2015 06:40:10 08/14/19 16 08/14/2015 CBC w/ auto diff monocytes 7 % Not Available [facility] ([facility]) [address] [facility], [place], [address], 08/17/2015 06:40:10 08/14/19 16 08/14/2015 CBC w/ auto diff eos 1 % Not Available [facility] ([facility]) [address] [facility], [place], [address], 08/17/2015 06:40:10 08/14/19 16 08/14/2015 CBC w/ auto diff basos 1 % Not Available [facility] ([facility]) [address] [facility], [place], [address], 08/17/2015 06:40:10 08/14/19 16 08/14/2015 CBC w/ auto diff immature cells [employer] Not Available [facility] ([facility]) [address] [place] [address], [address], 08/17/2015 06:40:10 08/14/19 16 08/14/2015 CBC w/ auto diff neutrophils (absolute) 3.1 x10e3 /uL 1.4-7. 0 Not Available [facility] ([facility]) [address] [place], [address], 08/17/2015 06:40:10 08/14/19 16 08/14/2015 CBC w/ auto diff lymphs (absolute) 2.6 x10e3 /uL 0.7-3. 1 Not Available [facility] ([facility]) [address] [place], [address], 08/17/2015 06:40:10 08/14/19 16 08/14/2015 CBC w/ auto diff monocytes(ab solute) 0.5 x10e3 /uL 0.1-0. 9 Not Available [facility] ([facility]) [address] [place], [address], 08/17/2015 06:40:10 08/14/19 16 08/14/2015 CBC w/ auto diff eos (absolute) 0.0 x10e3 /uL 0.0-0. 4 Not Available [facility] ([facility]) [address] [place], [address], 08/17/2015 06:40:10 08/14/19 16 08/14/2015 CBC w/ auto diff baso (absolute) 0.0 x10e3 /uL 0.0-0. 2 Not Available [facility] ([facility]) [address] [place] [address], [address], 08/17/2015 06:40:10 08/14/19 16 08/14/2015 CBC w/ auto diff immature granulocytes 0 % Not Available [facility] ([facility]) [address] [place], [address], 08/17/2015 06:40:10 08/14/19 16 08/14/2015 CBC w/ auto diff immature grans (abs) 0.0 x10e3 /uL 0.0-0. 1 Not Available [facility] ([facility]) [address] [facility], [place], [address], 08/17/2015 06:40:10 08/14/19 16 08/14/2015 CBC w/ auto diff NRBC [employer] Not Available [facility] ([facility]) [address] [place], [address], 08/17/2015 06:40:10 08/14/19 16 08/14/2015 CBC w/ auto diff hematology comments: [employer] Not Available [facility] ([facility]) [address] [place], [address], 08/17/2015 06:40:10 08/14/19 16 08/15/2015 CMP, serum or plasm a glucose, serum 75 mg/dL 65-99 Not Available [facility] ([facility]) [address] [place], [address], 08/17/2015 06:40:10 08/14/19 16 08/15/2015 CMP, serum or plasm a BUN 7 mg/dL 6-20 Not Available [facility] ([facility]) [address] [place], [address], 08/17/2015 06:40:10 08/14/19 16 08/15/2015 CMP, serum or plasm a creatinine, serum 0.78 mg/dL 0.57-1 .00 Not Available [facility] ([facility]) [address] [place], [address], 08/17/2015 06:40:10 08/14/19 16 08/15/2015 CMP, serum or plasm a eGFR if nonafricn AM 106 mL/mi n/1.7 3 >59 Not Available [facility] ([facility]) [address] [facility] [place], [address], 08/17/2015 06:40:10 08/14/19 16 08/15/2015 CMP, serum or plasm a eGFR if africn AM 122 mL/mi n/1.7 3 >59 Not Available [facility] ([facility]) [address] [facility] [place], [address], 08/17/2015 06:40:10 08/14/19 16 08/15/2015 CMP, serum or plasm a BUN/creatini ne ratio 9 8-20 Not Available [facility] ([facility]) [address] [facility] [place], [address], 08/17/2015 06:40:10 08/14/19 16 08/15/2015 CMP, serum or plasm a sodium, serum 140 mmol/ L 134-14 4 Not Available [facility] ([facility]) [address] [facility] [place], [address], 08/17/2015 06:40:10 08/14/19 16 08/15/2015 CMP, serum or plasm a potassium, serum 3.9 mmol/ L 3.5-5. 2 Not Available [facility] ([facility]) [address] [place], [address], 08/17/2015 06:40:10 08/14/19 16 08/15/2015 CMP, serum or plasm a chloride, serum 102 mmol/ L 97-108 Not Available [facility] ([facility]) [address] [facility] [place], [address], 08/17/2015 06:40:10 08/14/19 16 08/15/2015 CMP, serum or plasm a carbon dioxide, total 22 mmol/ L 18-29 Not Available [facility] ([facility]) [address] [place], [address], 08/17/2015 06:40:10 08/14/19 16 08/15/2015 CMP, serum or plasm a calcium, serum 9.2 mg/dL 8.7-10 .2 Not Available [facility] ([facility]) [address] [place], [address], 08/17/2015 06:40:10 08/14/19 16 08/15/2015 CMP, serum or plasm a protein, total, serum 7.0 g/dL 6.0-8. 5 Not Available [facility] ([facility]) [address] [facility] [place], [address], 08/17/2015 06:40:10 08/14/19 16 08/15/2015 CMP, serum or plasm a albumin, serum 4.5 g/dL 3.5-5. 5 Not Available [facility] ([facility]) [address] [place], [address], 08/17/2015 06:40:10 08/14/19 16 08/15/2015 CMP, serum or plasm a globulin, total 2.5 g/dL 1.5-4. 5 Not Available [facility] ([facility]) [address] [place], [address], 08/17/2015 06:40:10 08/14/19 16 08/15/2015 CMP, serum or plasm a A/G ratio 1.8 1.1-2. 5 Not Available [facility] ([facility]) [address] [place], [address], 08/17/2015 06:40:10 08/14/19 16 08/15/2015 CMP, serum or plasm a bilirubin, total 0.4 mg/dL 0.0-1. 2 Not Available [facility] ([facility]) [address] [place], [address], 08/17/2015 06:40:10 08/14/19 16 08/15/2015 CMP, serum or plasm a alkaline phosphatase, S 40 IU/L 39-117 Not Available [facility] ([facility]) [address] [facility], [place], [address], 08/17/2015 06:40:10 08/14/19 16 08/15/2015 CMP, serum or plasm a AST (SGOT) 15 IU/L 0-40 Not Available [facility] ([facility]) [address] [facility], [place], [address], 08/17/2015 06:40:10 08/14/19 16 08/15/2015 CMP, serum or plasm a ALT (SGPT) 8 IU/L 0-32 Not Available [facility] ([facility]) [address] [facility], [place], [address], 08/17/2015 06:40:10 08/14/19 16 08/15/2015 urina lysis , compl ete specific gravity 1.029 1.005- 1.030 Not Available [facility] ([facility]) [address] [facility], [place], [address], 08/17/2015 06:40:11 08/14/19 16 08/15/2015 urina lysis , compl ete pH 5.0 5.0-7. 5 Not Available [facility] ([facility]) [address] [facility], [place], [address], 08/17/2015 06:40:11 08/14/19 16 08/15/2015 urina lysis , compl ete urine-color YELLOW yellow Not Available [facility] ([facility]) [address] [facility], [place], [address], 08/17/2015 06:40:11 08/14/19 16 08/15/2015 urina lysis , compl ete appearance CLEAR clear Not Available [facility] ([place] [facility]) [address] [facility], [place], [address], 08/17/2015 06:40:11 08/14/19 16 08/15/2015 urina lysis , compl ete WBC esterase NEGATI VE negati ve Not Available [facility] ([facility]) [address] [place], [address], 08/17/2015 06:40:11 08/14/19 16 08/15/2015 urina lysis , compl ete protein NEGATI VE negati ve/tra ce Not Available [facility] ([facility]) [address] [place], [address], 08/17/2015 06:40:11 08/14/19 16 08/15/2015 urina lysis , compl ete glucose NEGATI VE negati ve Not Available [facility] ([facility]) [address] [place], [address], 08/17/2015 06:40:11 08/14/19 16 08/15/2015 urina lysis , compl ete glucose reflex [employer] Not Available [facility] ([facility]) [address] [place], [address], 08/17/2015 06:40:11 08/14/19 16 08/15/2015 urina lysis , compl ete ketones TRACE negati ve abnormal Not Available [facility] ([facility]) [address] [place], [address], 08/17/2015 06:40:11 08/14/19 16 08/15/2015 urina lysis , compl ete occult blood NEGATI VE negati ve Not Available [facility] ([facility]) [address] [place], [address], 08/17/2015 06:40:11 08/14/19 16 08/15/2015 urina lysis , compl ete bilirubin NEGATI VE negati ve Not Available [facility] ([facility]) [address] [place], [address], 08/17/2015 06:40:11 08/14/19 16 08/15/2015 urina lysis , compl ete urobilinogen ,semi-qn 0.2 mg/dL 0.2-1. 0 Not Available [facility] ([facility]) [address] [place], [address], 08/17/2015 06:40:11 08/14/19 16 08/15/2015 urina lysis , compl ete nitrite, urine NEGATI VE negati ve Not Available [facility] ([facility]) [address] [place], [address], 08/17/2015 06:40:11 08/14/19 16 08/15/2015 urina lysis , compl ete microscopic examination COMMEN T MICRO SCOPI C FOLLO WS IF INDIC ATED. Not Available [facility] ([facility]) [address] [facility], [place], [address], 08/17/2015 06:40:11 08/14/19 16 08/15/2015 urina lysis , compl ete microscopic examination SEE BELOW: MICRO SCOPI C WAS INDIC ATED AND WAS PERFO RMED. Not Available [facility] ([facility]) [address] [place], [address], 08/17/2015 06:40:11 08/14/19 16 08/15/2015 urina lysis , compl ete WBC 0-5 /hpf 0 - 5 Not Available [facility] ([facility]) [address] [place], [address], 08/17/2015 06:40:11 08/14/19 16 08/15/2015 urina lysis , compl ete RBC 0-2 /hpf 0 - 2 Not Available [facility] ([facility]) [address] [place], [address], 08/17/2015 06:40:11 08/14/19 16 08/15/2015 urina lysis , compl ete epithelial cells (non renal) 0-10 /hpf 0 - 10 Not Available [facility] ([facility]) [address] [place], [address], 08/17/2015 06:40:11 08/14/19 16 08/15/2015 urina lysis , compl ete epithelial cells (renal) [employer] Not Available [facility] ([facility]) [address] [facility] [facility], [place], [address], 08/17/2015 06:40:11 08/14/19 16 08/15/2015 urina lysis , compl ete casts NONE SEEN /lpf none seen Not Available [facility] ([facility]) [address] [facility], [place], [address], 08/17/2015 06:40:11 08/14/19 16 08/15/2015 urina lysis , compl ete cast type [employer] Not Available [facility] ([facility]) [address] [facility], [place], [address], 08/17/2015 06:40:11 08/14/19 16 08/15/2015 urina lysis , compl ete crystals PRESEN T n/a abnormal Not Available [facility] ([facility]) [address] [facility], [place], [address], 08/17/2015 06:40:11 08/14/19 16 08/15/2015 urina lysis , compl ete crystal type CALCIU M OXALAT E n/a Not Available [facility] ([facility]) [address] [facility], [place], [address], 08/17/2015 06:40:11 08/14/19 16 08/15/2015 urina lysis , compl ete mucus threads PRESEN T not estab. Not Available [facility] ([facility]) [address] [place], [address], 08/17/2015 06:40:11 08/14/19 16 08/15/2015 urina lysis , compl ete bacteria FEW none seen/f ew Not Available [facility] ([facility]) [address] [place], [address], 08/17/2015 06:40:11 08/14/19 16 08/15/2015 urina lysis , compl ete yeast [employer] Not Available [facility] ([facility]) [address] [place] [address], [address], 08/17/2015 06:40:11 08/14/19 16 08/15/2015 urina lysis , compl ete trichomonas [employer] Not Available [facility] ([facility]) [address] [place] [address], [address], 08/17/2015 06:40:11 08/14/19 16 08/15/2015 urina lysis , compl ete comment [employer] Not Available [facility] ([facility]) [address] [place], [address], 08/17/2015 06:40:11 08/14/19 16 08/16/2015 antic ardio lipin igg+i gm+ig a Ab, serum anticardioli pin Ab,IgG,qn <9 gpl_U /mL 0-14 NEGAT VU: <15 INDET ERMIN ATE: 15 - 20 LOW-M ED POSIT VU: >20 - 80 HIGH POSIT VU: >80 Not Available [facility] ([facility]) [address] [place], [address], 08/17/2015 06:40:12 08/14/19 16 08/16/2015 antic ardio lipin igg+i gm+ig a Ab, serum anticardioli pin Ab,IgM,qn <9 mpl_U /mL 0-12 NEGAT VU: <13 INDET ERMIN ATE: 13 - 20 LOW-M ED POSIT VU: >20 - 80 HIGH POSIT VU: >80 Not Available [facility] ([facility]) [address] [place], [address], 08/17/2015 06:40:12 08/14/19 16 08/16/2015 antic ardio lipin igg+i gm+ig a Ab, serum anticardioli pin Ab,IgA,qn <9 apl_U /mL 0-11 NEGAT VU: <12 INDET ERMIN ATE: 12 - 20 LOW-M ED POSIT VU: >20 - 80 HIGH POSIT VU: >80 Not Available [facility] ([facility]) [address] [place], [address], 08/17/2015 06:40:12 08/14/19 16 08/15/2015 sjogr en antib leigh ann panel (ssa, ssb, ro, la), serum sjogren's anti-ss-A <0.2 ai 0.0-0. 9 Not Available [facility] ([facility]) [address] [place], [address], 08/17/2015 06:40:13 08/14/19 16 08/15/2015 sjogr en antib leigh ann panel (ssa, ssb, ro, la), serum sjogren's anti-ss-B <0.2 ai 0.0-0. 9 Not Available [facility] ([facility]) [address] [place], [address], 08/17/2015 06:40:13 08/14/19 16 08/15/2015 C4 (comp lemen t), serum or plasm a complement C4, serum 20 mg/dL 14-44 Not Available [facility] ([facility]) [address] [place], [address], 08/17/2015 06:40:13 08/14/19 16 08/15/2015 wong Ab, serum wong antibodies <0.2 ai 0.0-0. 9 Not Available [facility] ([facility]) [address] [place], [address], 08/17/2015 06:40:14 08/14/19 16 08/15/2015 C react vu prote in, QN, serum or plasm a C-reactive protein, quant 5.3 mg/L 0.0-4. 9 above high normal Not Available [facility] ([facility]) [address] [facility] [facility], [place], [address], 08/17/2015 06:40:14 02/21/20 15 02/19/2015 MRI, C-spi ne No observ ation record ed. [email or web address] [facility] (PT) [address] [facility] [place], [address], 02/22/2015 11:13:48 Result Notes None recorded. Problems Name Problem SNOMED Code Status Onset Date Resolution Date Notes Provider Name and Address Organization Details Recorded Time Systemic lupus erythematosus 05260432 Active Gerda Dillon MD [address] [place], [address], [place] - [facility] 6 16:00:15 Hyperthyroidism 97252218 Active Mae cyndee, [place] - [facility] 6 17:38:34 Pain of shoulder region 61672020 Active Gerda Dillon MD [address] [place], [address], [place] - [facility] 5 13:30:18 Displacement of cervical intervertebral disc without myelopathy 31657817 Active Celine Ivania rivers null, [place] - [facility] 5 21:37:09 Problem Notes None recorded. Procedures Surgical History Date Name Laterality Status Provider Name and Address Organization Details Recorded Time 08/05/2010 Other completed Gerda Dillon MD [address] [facility] [place], [address], [facility] 01/31/2014 11:46:33 10/05/2008 Other completed Gerda Dillon MD [address] [facility] [place], [address], [facility] 01/31/2014 11:46:33 Imaging Results Imaging Date Name Status LastModified by Organiz ation Details LastModified Time 02/19/2015 MRI, C-spine completed [email or web address] [facility] ([facility]) [address] [place], [address], 02/22/2015 11:13:48 Procedure Notes None recorded. Medical Equipment None Reported. Allergies Allergen ID Allergen Name Allergen Category Reaction Reaction Severity Criticality Documentation Date Start Date Code Code System Note Provider Name and Address Organization Details Recorded Time 03656 Bactrim medicatio n Not available Not available Not available 01/31/2014 35845 9 RxNorm night lopez Tawnya Haas null, [facility] 12:04:32 55044 adhesive tape environme nt,medica tion hives rash mild mild Not available 01/31/2014 39374 UNK Daphne White cyndee, [facility] 4 11:24:12 Medications Name Sig Start Date Stop Date Status Note LastModified by Organization Details LastModified Time cyclobenzapr ine 10 mg tablet TK 1 T PO TID PRN active Not Available Not Available No t Available fluconazole 150 mg tablet TK 1 T PO WEEKLY active Not Available Not Available No t Available prednisone 20 mg tablet active Not Available Not Available Not Available prednisone 5 mg tablet TK 1 TO 2 TS PO QD PRN active Not Available Not Available No t Available promethazine 6.25 mg-codeine 10 mg/5 mL syrup active Not Available Not Available Not Available leucovorin calcium 10 mg tablet TK 1 T PO ONCE A WEEK ON THE DAY FOLLOWING METHOTREXAT E DOSE active Not Available Not Available No t Available omeprazole 40 mg capsule,nieves yed release active Not Available Not Available Not Available tramadol 50 mg tablet TAKE 1 TABLET BY MOUTH EVERY 6 HOURS 2015 active Not Available Not Available Not Avai lable ketorolac 10 mg tablet active Not Available Not Available No t Available oxycodone-ac etaminophen 5 mg-325 mg tablet active Not Available Not Available Not Available methotrexate sodium 2.5 mg tablet TK 4 TS PO ONCE WEEKLY active Not Available Not Available Not Available lidocaine 5 % topical patch active Not Available Not Available Not Available methimazole 5 mg tablet TK 1/2 T PO D AT 600 AM active Not Available Not Available Not Available gabapentin 300 mg capsule 2 capsules every day by oral route. active Not Available Not Available No t Available folic acid 1 mg tablet Take 2 tabs po qd 2015 active Not Available Not Available Not Avai lable hydroxychlor oquine 200 mg tablet TK 1 T PO BID active Not Available Not Available No t Available prednisone 5 mg tablets in a dose pack FPD active Not Available Not Available Not Available cefuroxime axetil 500 mg tablet active Not Available Not Available No t Available ondansetron 4 mg disintegrati ng tablet DIS ONE T PO Q 8 H PRN N active Not Available Not Available No t Available naproxen 500 mg tablet active Not Available Not Available No t Available diazepam 5 mg tablet active Not Available Not Available No t Available amoxicillin 875 mg-potassium clavulanate 125 mg tablet TK 1 T PO BID active Not Available Not Available No t Available nabumetone 500 mg tablet TK 1 T PO BID WF active Not Available Not Available No t Available NuvaRing 0.12 mg-0.015 mg/24 hr vaginal INSERT ONE RING VAGINALLY AND LEAVE IN PLACE FOR 3 CONSECUTIVE WEEKS THEN REMOVE FOR ONE WEEK. REPEAT MONTHLY active Not Available Not Available No t Available azithromycin 500 mg tablet active Not Available Not Available Not Available cyclobenzapr ine 5 mg tablet Take 1 tablet(s) 3 times a day by oral route. active Not Available Not Available No t Available Aleve 2013 active Not Available Not Available Not Avai lable biotin active Not Available Not Availa ble Not Available Plaquenil 2013 active Not Available Not Available Not Avai lable Percocet 2013 active Not Available Not Available Not Avai lable Excedrin Migraine prn active Not Available Not Available Not Available Vitals Date Recorded Heart rate Body weight Body height Body mass index (BMI) Systolic blood pressure Diastolic blood pressure Provider Name and Address Organization Details Last Updated DateTime 5 75 /min 87645.4 4787 g 170.18 cm 23.6 kg/m2 112 mm[Hg] 79 mm[Hg] Tawnya Haas [facility] 5 12:01:55 Date Recorded Body height Body mass index (BMI) Body weight Provider Name and Address Organization Details Last Updated DateTime 02/27/2015 170.18 cm 23.8 kg/m2 89539.48622 g Divya Husain [facility] 02/27/2015 14:37:10 Date Recorded Body height Body mass index (BMI) Heart rate Body weight Systolic blood pressure Diastolic blood pressure Provider Name and Address Organization Details Last Updated DateTime 5 170.18 cm 24.3 kg/m2 54 /min 86340.8 1735 g 111 mm[Hg] 80 mm[Hg] Jeri Dietteric h [facility] 5 09:25:51 Date Recorded Body height Body weight Heart rate Body mass index (BMI) Systolic blood pressure Diastolic blood pressure Provider Name and Address Organization Details Last Updated DateTime 6 170.18 cm 04169.4 0972 g 57 /min 24.4 kg/m2 116 mm[Hg] 73 mm[Hg] Carrie Carrizales [facility] 6 14:03:23 Date Recorded Body weight Heart rate Systolic blood pressure Diastolic blood pressure Provider Name and Address Organization Details Last Updated DateTime 08/14/2015 65620.632 61 g 83 /min 112 mm[Hg] 73 mm[Hg] Carrie Carrizales [facility] 08/14/2015 13:50:02 Social History Question Answer Notes LastModified by Organizat ion Details LastModified Time Tobacco Smoking Status Never Smoker Daphne Cindy cotter, [facility] 01/31/2014 11:24:43 What Is Your Level Of Alcohol Consumption? Occasional [email or web address] Information not available 01/31/2014 Are You Blind Or Do You Have Difficulty Seeing? No [email or web address] Information not available 01/31/2014 What Is Your Level Of Caffeine Consumption? Occasional Information not available 06/11/2014 How Much Tobacco Do You Chew? 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 None [email or web address] Information not available 01/31/2014 Education 4 Year College [email or web address] Informatio n not available 01/31/2014 Which Of Your Hands Is Dominant? Right Information not available 12/24/2014 What Types Of Sporting Activities Do You Participate In? Horse Back Riding, Pilates [email or web address] Information not available 04/15/2015 Sex: Unknown Functional Status None recorded. Mental Status None recorded. Family History Relationship Description Onset Age of this Age Resolved Age Notes LastModified by Organization Details LastModified Time Mother Rheumatoid arthritis [email or web address] Not available 2015 13:50:03 Father Hypertensive disorder [email or web address] Not available 2015 13:50:03 Medical History Condition Response HIV or AIDS N Leukemia N MRSA N Previous Oral Steroid(s) Y Lung Disease N Blood Clots N Depression N Pneumonia N Patient reports no significant medical h istory N Pacemaker N Colitis/Stomach Ulcers N Anxiety Disorder N Thyroid Problems/Goiter Y Cancer N Stroke/TIA N High Cholesterol N Previous Cortisone Injection(s) N Fibromyalgia N Headaches N Swelling of Legs/Feet/Hands N Kidney Disease N Heart Problems N Migraines N Lupus/SLE Y ADD/ADHD N Weight loss N Nervous Breakdown N Joint Pain N Anemia N Eye Disease/Cataracts/Glaucoma N Previous Fracture(s) N Stomach Ulcers N Diabetes N Rheumatic Fever N Hepatitis/Liver Disease N Seizures/Epilepsy N Tuberculosis N Asthma N Drug dependency/Abuse N Psoriasis N Sleep apnea N Jaundice N GERD/Reflux N Hypertension N Osteoporosis N Gynecological History Statement/Question Response N Obstetrics History GPAL:G 0 P 0 0 0 0 Past Encounters Encounter ID Performer Location Encounter Start Date Encounter Closed Date Diagnosis/Indication Diagnosis SNOMED-CT Code Diagnosis ICD10 Code Diagnosis Note [id number] Gerda Dillon MD [facility] [address] [place] [address] 01/31/2014 10:04:28 01/31/2014 14:12:29 Systemic lupus erythematosus 76147638 [id number] Gerda Dillon MD [facility] [address] [place] [address] 03/28/2014 15:01:49 03/28/2014 15:46:39 Systemic lupus erythematosus 60116299 [id number] Gerda Dillon MD [facility] [address] [place] [address] 06/11/2014 10:10:18 06/11/2014 13:06:55 Systemic lupus erythematosus 32923913 Hyperthyroidism 69236387 Pain of ouer region 51777211 [id number] Megha Brush MD -[facility] [address] [place] [address] 07/09/2014 14:28:15 07/09/2014 16:13:58 Displacement of cervical intervertebral disc without myelopathy 16513463 [id number] Gerda Dillon MD [facility] [address] [place] [address] 09/10/2014 11:52:00 09/10/2014 13:42:23 Systemic lupus erythematosus 74637944 Hyperthyroidism 12768463 [id number] Gerda Dillon MD [facility] [address] [place] [address] 09/21/2014 09:14:58 09/21/2014 10:00:08 Systemic lupus erythematosus 60819613 [id number] Gerda Dillon MD [facility] [address] [place] [address] 12/24/2014 11:48:56 12/24/2014 14:38:48 Systemic lupus erythematosus 73131859 Displaceme nt of cervical intervertebral disc without myelopathy 17845430 [id number] BJ HALE PA-C [facility] [address] [place] [address] 02/27/2015 14:24:58 02/27/2015 15:14:46 Displacement of cervical intervertebral disc without myelopathy 90163560 [id number] Gerda Dillon MD [facility] [address] [place] [address] 04/15/2015 09:15:12 04/15/2015 09:47:50 Systemic lupus erythematosus 14107010 M32.19 [id number] Gerda Dillon MD [facility] [address] [place] [address] 07/15/2015 13:56:35 07/15/2015 15:41:04 Systemic lupus erythematosus 79976416 M32.19 Hyperthyroidism 27757719 E05.90 [id number] Gerda Dillon MD [facility] [address] [place] [address] 08/14/2015 13:41:39 08/15/2015 08:49:23 Systemic lupus erythematosus 52217503 M32.19 Health Concerns Section Related Observation LastModified by Organization Detai ls LastModified Time None Recorded Concern Status LastModified by Organization Details LastModified Time None Recorded Advance Directives Directive None Recorded Payers Insurance Date Sequence Insurance Name Policy Number Policy Farooq Covered Member ID Farooq Member ID Guarantor Name 10/10/2015 1 [facility] [place] [id number] Fiorella Mckeon [id number] Fiorella Mckeon 07/25/2015 2 [place] [facility] Jesse Mckeon [id number] Fiorella Mckeon Notes Date Note Type Note Provider Name and Address Organization Details Recorded Time 12/24/2014 text/html SUBJECTIVE: The patient returns for follow up of her SLE, hyperthyroidism, migraines and cervical radiculopathy. Since her last visit, she feels she has developed a flare of her lupus over the last 10 days. She has had increasing arthritis involving her hands, as well as multiple other joints. She has also had increasing alopecia and oral ulcers. She has had fatigue to the point where she will sleep for up to 13 hours. It has been difficult for her to get through the workday. She also continues to have some of her cervical radiculopathy symptoms. She has called to schedule an MRI but has not heard back from this. She is using Flexeril and Tramadol and would like to get refills of this. She is generally using these once per day. She is followed by endocrinology for her hyperthyroidism. It has been unclear if the treatment has improved her palpitations. She plans to make a follow up appointment to discuss this. Other complaints include a decreased appetite. She continues to have migraine headaches and uses Excedrin Migraine with reasonable control of her symptoms. She has also had some worsening alopecia and oral ulcers. Her review of systems is otherwise unremarkable. She does report she has moved in with her boyfriend at least 1 years ago. 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 She does feel the heat has aggravated her symptoms. She has previously lived in [place] and feels it has been difficult to adjust to the higher temperatures. Gerda Dillon MD [address], [place], [address], [facility] 12/24/2014 20:37:37 02/27/2015 text/html Ms Aranda is a pleasant 24 year old female who comes to clinic today for MRI results of the C spine. She is being followed by Dr Hills and Dr Lorenz, who treats her Lupus (which patient notes is well-controlled). Patient has been experiencing this neck pain for 9-10 years. She also has been having numbness and tingling of her left upper extremity with intermittent sharp pain for 9-10 years. The pain quality is sharp and burning. She has been followed for potential shoulder etiology, but a shoulder MRI was negative. She has never had right-sided symptoms. She has done 3 rounds of physical therapy without sufficient relief. She has taken steroid courses and multiple muscle relaxers and medications without total relief, but they relief her pain enough to prevent sleep disturbances. She has avoided taking any narcotic medications due to concern for possible dependency. BJ HALE PA-C [address] [place], [address], [facility] 03/04/2015 16:05:52 04/15/2015 text/html SUBJECTIVE: The patient returns for follow up of her SLE. Since her last visit she has been reasonably stable. She had an MRI of her cervical spine performed on February 19, 2015 for radicular symptoms going down her left arm and this was negative. Her symptoms have gradually improved, although she does continue to have some intermittent symptoms. She feels her lupus has been stable. Her joints generally do better with colder weather. She had previously been planning to go to law school in the fall 2015 but now has elected to do an DIANE online. She is engaged and she and her fianc may plan to begin conceiving within 1 years. She is questioning what she would need to do regarding her medications if she were planning to conceive. Her migraines have been better and she has not had a headache in the past two months. Her oral ulcers have also been better since she is taking Folic Acid. She will be following up with her road grader regarding her hypothyroidism. She will most likely be taken off of her Methimazole. She otherwise denies chest pain, shortness of breath, indigestion, diarrhea, constipation, dysuria, ocular inflammation, oral ulcers, Sicca symptoms, recent infections, rash or alopecia. Gerda Dillon MD [address] [place], [address], [facility] 04/15/2015 19:21:14 07/15/2015 text/html SUBJECTIVE: The patient returns for follow up of her SLE. Since her last visit her disease activity has been mostly stable. She has had some increased frequency of oral ulcers and hair loss, however. She is taking Folic Acid 2 mg q.d. but continues to have oral ulcers somewhat frequently. She does have some increased personal stress because she has had some stress at work. She also has some positive stress in that she will be getting in March and has recently become engaged. She plans to start her DIANE course work online within the next few months also. She has had some shortness of breath and was seen by a mesmerist and had a negative work up. It has been recommended she see cardiology and she has an appointment on August 08. She has also been by endocrinology since her last visit for her hyperthyroidism. Because her tests were borderline, it is felt she could go off her Methimazole. She has discontinued this without any problems. She otherwise denies headaches, dizziness, ocular inflammation, sinus symptoms, indigestion, diarrhea, constipation or dysuria. Gerda Dillon MD [address], [place], [address], [facility] 07/16/2015 07:40:43 08/14/2015 text/html SUBJECTIVE: The patient returns for follow up of her SLE. She has been off Methotrexate for one month because of previous oral ulcers and because of a very significant flu virus that has been going around her workplace. She plans to reinitiate this within the week. She also has recently found out she is moving to [place], [place] by the end of the month and would like to get a 90 day prescription for her Methotrexate. She had previously seen a mesmerist for evaluation of her dyspnea and had a negative work up. She was recently seen by a commanding officer motorized squad last week and it was felt that she may have some cardiac issues contributing to her palpitations, but no work up would be done until her records from her previous cardiac workup in 2008 were obtained. The patient plans to transition her care to [place], as she will be moving there within a few weeks. She otherwise feels her lupus has been stable and denies any recent infections, rash, alopecia, headaches, dizziness, ocular inflammation, dry mouth, chest pain, indigestion, diarrhea, constipation or dysuria. She does report that she and her ficeasar e may be planning to conceive in over a year and questions what issues would arise with her medications and her underlying lupus diagnosis regarding the risk for the . Gerda Dillon MD [address], [place], [address], [facility] [place] [facility] 08/14/2015 21:30:50 OBGyn Episode No OBEpisode recorded.
--- OUTSIDE RECORDS SUMMARY | 2024-10-12 11:00 | XMS_ITS | Data Portability ---
Author Organization [facility]ACY [facility] STRAP MACHINE OPERATOR, [id number] Address [address] [place] [address] Assessment Encounter Date Assessment Date Assessment LastModified by Organization Details LastModified Time 05/09/2020 05/09/2020 >50% of the visit was spent in consultation or coordination of care. Total time spent was ___15 minutes. [email or web address] Not available 05/09/2020 15:11:49 06/14/2020 06/14/2020 I spent a total of 20 minutes providing care for this patient including: preparing to see the patient, obtaining a medical history, completing a medically appropriate physical exam, completing documentation of visit information and plans in the EMR, counseling the patient and/or caregiver regarding her diagnosis, treatment options and follow up plans, as well as any necessary communication of subsequent test results to the patient, counseling the patient and/or caregiver regarding health maintenance recommendations, , [email or web address] Not available 07/19/2020 00:10:17 Plan of Treatment Reminders Order Date Submit Date Provider Last Modified By Organization Details Last Modified Time Details Appointments None recorded. Lab None recorded. Referral None recorded. Procedures None recorded. Surgeries None recorded. Imaging US, transvagin al 2019 [email or web address] Not available 0 09:51:01 US, pelvis 2019 [email or web address] [employer] Administrative Assistant [place], [address], [place], [address], 1 15:55:01 Medication Orders clindamyci n 1 %-benzoyl peroxide 5 % topical gel 2019 INTERFACE [id number], [address] [place], [place], [id number], 0 15:15:15 tretinoin 0.025 % topical cream 2019 INTERFACE [facility][id number], [address] [place], [place], [id number], 0 15:15:14 NuvaRing 0.12 mg-0.015 mg/24 hr vaginal 2019 [id number], [address] [place], [place], [id number], 0 15:15:14 Patient TargetsNo targets recorded. Patient Instructions Encounter Date Encounter Id Patient Instructions Last Modified By Organization Details Last Modified Time 05/09/2020 [id number] Reviewed common causes of heavy painful cycles. Pt to schedule pelvic ultrasound at end of next period. Discussed contraceptive options with pro's/con's. Pt would like to start with NuvaRing since that worked for her in the past. Sent script. Offered labs. Pt declines at this time. Will start with ultrasound and NuvaRing. All questions answered. [email or web address] Not available 05/09/2020 15:15:02 Reason for Referral None Reported. Results Created Date Observation Date Name Description Value Unit Range Abnormal Flag Note LastModifiedBy Organization Detail LastModifiedTime 05/28/20 20 US, trans vagin al No observ ation record ed. [email or web address] [address], [place], [address], 06/03/2020 11:41:11 05/28/20 20 US, trans vagin al No observ ation record ed. [email or web address] [address], [place], [address], 06/03/2020 11:41:10 Result Notes None recorded. Problems Name Problem SNOMED Code Status Onset Date Resolution Date Notes Provider Name and Address Organization Details Recorded Time Lupus erythematosu s 766393550 Active 2020 Edwina Fontana TERMED null, [facility] STRAP MACHINE OPERATOR 10:17:10 Rheumatoid arthritis 15305805 Active 2020 Edwina Fontana TERMED null, [facility] STRAP MACHINE OPERATOR 10:17:34 Problem Notes None recorded. Procedures Surgical History Date Name Laterality Status Provider Name and Address Organization Details Recorded Time 03/07/20 18 hysteroscopy completed Edwina Vicente TERMED [facility] STRAP MACHINE OPERATOR 06/14/2020 10:16:29 12/16/19 17 delivery completed Edwinaher Vicente TERMED [facility] STRAP MACHINE OPERATOR 06/14/2020 10:16:44 Imaging Results Imaging Date Name Status LastModified by Organization Details LastModified Time 05/28/2020 US, transvaginal completed [email or web address] [address], [place], [address], 06/03/2020 11:41:11 05/28/2020 US, transvaginal completed [email or web address] [address], [place], [address], 06/03/2020 11:41:10 Procedure Notes None recorded. Medical Equipment None Reported. Medications Name Sig Start Date Stop Date Status Note LastModified by Organization Details LastModified Time celecoxib 200 mg capsule TK 1 C PO QD PRN active Not Available Not Available No t Available ketoconazole 2 % shampoo APPLY SHAMPOO TO WET SCALP AND MASSAGE. ALLOW 3 TO 5 MIN TO SIT ON SCALP. THEN RINSE. USE AT LEAST ONCE WEEKLY active Not Available Not Available No t Available fluconazole 150 mg tablet 06/14 completed Not Available Not Available Not Available tretinoin 0.025 % topical cream ROSA EXT AA QD HS active Not Available Not Available No t Available meloxicam 15 mg tablet TK 1 T PO QD active Not Available Not Available No t Available gabapentin 400 mg capsule TK ONE C PO QHS 06/14 completed Not Available Not Available Not Available metronidazol e 500 mg tablet TK 1 T PO BID FOR 7 DAYS 06/14 completed Not Available Not Available Not Available clindamycin 1 %-benzoyl peroxide 5 % topical gel ROSA EXT AA BID IN THE MORNING AND IN THE MILAGRO active Not Available Not Available No t Available cephalexin 500 mg capsule TK 1 C PO QID active Not Available Not Available No t Available gabapentin 300 mg capsule active Not Available Not Available Not Available folic acid 1 mg tablet TK 1 T PO QD active Not Available Not Available No t Available clobetasol 0.05 % scalp solution active Not Available Not Available Not Available NuvaRing 0.12 mg-0.015 mg/24 hr vaginal Insert 1 vaginal ring every month by vaginal route. 2020 active Last STEPHENIE 05/26 20 Not Available Not Available Not Available Vitals Date Recorded Body weight Body mass index (BMI) Body height Systolic blood pressure Diastolic blood pressure Provider Name and Address Organization Details Last Updated DateTime 05/09/2020 94514.33 g 30.2 kg/m2 170.18 cm 122 mm[Hg] 84 mm[Hg] Mitzi Jewell (TERMED) [facility] STRAP MACHINE OPERATOR 0 14:10:28 Date Recorded Body height Body mass index (BMI) Body weight Systolic blood pressure Diastolic blood pressure Provider Name and Address Organization Details Last Updated DateTime 06/14/2020 170.18 cm 29.9 kg/m2 49128.14 g 112 mm[Hg] 70 mm[Hg] Edwina Barajaspradeep TERMED [facility] STRAP MACHINE OPERATOR 1 10:21:30 Social History None recorded. Functional Status None recorded. Mental Status None recorded. Family History Relationship Description Onset Age of this Age Resolved Age Notes LastModified by Organization Details LastModified Time Father Hypertensive disorder [email or web address] Not available 01/2021 10:14:55 Mother Malignant tumor of breast [email or web address] Not available 01/2021 10:15:08 Medical History No medical history recorded. Gynecological History Statement/Question Response Date of LMP 04/16/2020 Obstetrics History GPAL:G 1 P 0 1 0 1 Type Value Premature 1 Living 1 Total 1 Past Encounters Encounter ID Performer Location Encounter Start Date Encounter Closed Date Diagnosis/Indication Diagnosis SNOMED-CT Code Diagnosis ICD10 Code Diagnosis Note [id number] NERISSA ARAGON MD [id number] [address] [address] 05/09/2020 14:06:50 05/09/2020 14:33:56 Acne 19726589 L70.9 [facility] ion care management [id number] Z30.9 [id number] GHANSHYAM DUNCAN MD [id number] [address] [address] 05/28/2020 16:45:17 05/28/2020 17:25:17 Menorrhagia 076282940 N92.0 [id number] DEB PETERSON MD [id number] [address] [address] 06/14/2020 10:18:53 06/14/2020 11:38:00 Abnormal uterine bleeding 0313480341 9100 N93.9 Discussed [place] etiology of abnormal uterine bleeding. Review of anatomy discussed with patient and described that some reasons for bleeding could be structural like polyp, fibroid, adenomyosi s or hormonal such as anovulatio n. - reviewed normal u/s results. Plan for labs today - Discussed management options including OCPs, Depo, and IUD. - Has hx lupus so would like to avoid higher dose hormones which cause flairs - Did not discuss ablation since primary concern is pain - Plan: Continue nuvaring for 3 months and then reevaluate . Instructed to call if periods remain prolonged or if pain worsens. - If no improvemen t, consider IUD vs surgical management Dysmenorrhea [id number] N 94.6 Health Concerns Section Related Observation LastModified by Organization Detai ls LastModified Time None Recorded Concern Status LastModified by Organization Details LastModified Time None Recorded Advance Directives Directive None Recorded Payers Insurance Date Sequence Insurance Name Policy Number Policy Farooq Covered Member ID Farooq Member ID Guarantor Name 07/22/2020 1 [facility] [id number] Ovi Kumar [id number] Fiorella Kumar Notes Date Note Type Note Provider Name and Address Organization Details Recorded Time 0 text/html Contraception Counseling ([facility])Reported bypatient.Reason for visit:desires contraceptive method Current Contraceptionrhythm method or natural family planning Previously Tried MethodsNuvaRing; DMPA * Context:no problems with previous contraceptive method; currently sexually active yes * Associated Signs and Symptomsheavy menses;dysmenorrhea;PMS Pt presents to clinic today to discuss heavy, painful periods. Pt states for the last 9 months or so her periods have become so bad that she isn't functioning normally for 2-3 days each cycle. She also reports going through 7-8 super tampons her day on those heavy days. She has tried Ibuprofen without much relief. She would like to go back on control to see if that helps. Marcin Unger (TERMED) [place], [place] - [facility] STRAP MACHINE OPERATOR 05/09/2020 15:15:28 1 text/html Patient presents today for {{abnormal uterine bleeding amenorrhea erick rrhagia/heavy bleeding* postcoital bleeding postmenopausal bleeding a follow up evaluation for:}} The patient states {{she has had several episodes of bleeding in the past 8 months# she has had several episodes of bleeding in the past ___enter timeline__ the bleeding began __how long ago___ ago she had an episode of bleeding__when__}}. This is the patient's {{initial visit for this issue subsequent follow up visit for this issue*}}. Her past medical history is {{notable for: non-contributory*}} . She {{has had a blood count has not had a blood count since developing this problem*}}. The patient indicates she {{has had a pelvic ultrasound* has had a hysteroscopy has had a sonohysterography has had an endometrial biopsy has not had an endometrial biopsy has not had an ultrasound or hysteroscopy}}. Are there any alleviating factors? {{Yes: No*}}. Are there any aggravating factors? {{Yes: No*}}. Are there any additional complaints? {{Yes: No*}}. Other: {{The patient has no other concerns to address at this visit* The patient c/o:}}. Periods used to be monthly, predictable, last 3-5d, moderate bleed, and no pain. In last 8 months periods have stayed regular but are much heavier, changes super tampon q2-3h, last 2-3d, and has terrible cramps. Pain dulls only a little with ibuprofen. Last period 05/23-06/06 Started nuvaring around 05/23. She has never had an issue like this. Exercising and dieting. lost 10lb Sexually active. had vasectomy. U/S 09/01 (day 4): Heneterogenous 11.5mm EMT. no discerete masses. Hx C/S x 1 Deb Peterson (TERMED) null, [place] - [facility] STRAP MACHINE OPERATOR 07/19/2020 00:11:01 OBGyn Episode Ob Episode Information Episode Created Date Number of Fetuses Patient Bloodtype Patient rh Status Prepregnancy Weight lbs Domestic Partner Domestic Partner Phone Father Name Retina Subspecialist Status 06/14/19 21 1 CLOSED Fetus Data First Name Last Name Admitted to NICU Weight (g) Sex Living Outcome Pediatric Complications Fetus ID Race Codes Race Delivery Type 3486.76 1704 [place]atur [place] [id number] Regulo Calculation Initial Regulo Date Initial Exam Date Initial Exam Provider Initial Ultrasound Date Last Menstrual Period Date Ultra Sound Weeks Gestation 0 Eighteen To Twenty Week Regulo Update Ultra Sound Date Fundal Height At Umbil Quickening Date Ultra Sound Latest Weeks Gestation Final Regulo Confirmed By Final Regulo Confirmed Date Final Regulo Date Ultra Sound Latest Days Gestation 0 0 Menstrual History Last Menstrual Date Menses Monthly On Bcp Conception Prior Menses Frequency Hcg Plus Date Menarche Onset Age Delivery Information Delivery Date Delivery Type Labor Anesthesia Weeks Gestation Incision Type Labor Labor Length Hrs Delivered By Post Complications Tubal Sterilization Discharge Date Comments 7 35 Discharge Information Feeding Method Contraceptive Method Maternal HG B and HCT Levels
--- OUTSIDE RECORDS SUMMARY | 2024-10-12 11:00 | XMS_ITS | Clinical Summary ---
Author Organization [facility] Address [address] [place] [address] Care Team Providers Care Clinical Pharmacist Name Role Phone Valeria Vargas Primary Care Provider Allergies No known active allergies Medications etonogestreL-eth inyl estradioL (NuvaRing) vaginal ring Insert 1 ring into the vagina every 4 weeks. Insert 1 ring vaginally and leave in place for 3 consecutive weeks, then remove for 1 week. Repeat with new ring. 3 ring 3 1 Active methotrexate (RHEUMATREX) 2.5 mg tablet Take 12.5 mg by mouth once weekly. 0 2 Active celecoxib (CELEBREX) 200 mg capsuleIndicatio ns:Rheumatoid arthritis, involving unspecified site, unspecified whether rheumatoid factor present (HC) Take by mouth once daily if needed for Pain. 90 Capsule 3 Active metoprolol succinate (TOPROL XL) 25 mg Sustained-Releas e tabletIndication s:PAC (premature atrial contraction) Take 1 Tablet (25 mg) by mouth once daily. 90 Tablet 4 Active Active Problems Problem Noted Date Diagnosed Date Lupus 04/07/2021 Rheumatoid arthritis 06/14/2020 Immunizations Immunization Administration Dates Next Due COVID-19 vaccine (Llesiant 30mcg/0.3mL) GONZALO Calvert 09/18/2020,08/24/2020 Family History Medical History Relation Name Comments Good Health Father No Known Problems Maternal Grandfather No Known Problems Maternal Grandmother Cancer-breast Mother Bone cancer Paternal Grandfather Grayson; s tarted as Bone? 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 Not on file Not on file Not on file Obstetrics History Para Term [...] age 15-65 2004 Hepatitis C screening for ag e 18-79 09/02/2007 Pneumococcal series for age 6-49 (1 of 2 - PCV) 2008 Tetanus booster 2009 Depression screening for age 12+ 05/11/2023 05/11/2022, 04/07/2021, 10/10/2020, Additional history exists BMI (ht and wt on same day) for age 18+ 08/19/2023 08/18/2022, 05/11/2022, 08/26/2021, Additional history exists COVID-19 vaccine series ( season) 2024 02/14/2022, 04/09/2021, 09/18/2020, Additional history exists Influenza Vaccine (Season Ended) 2025 Pap test for age 21-65 08/27/2027 , 08/26/2022, 05/21/2020 ([facility]) Procedures Procedure Name Priority Date/Time Associated Diagnosis Comments HPV HIGH RISK Routine 08/26/2022 11:45 AM CDT from Last 3 Months or Most Recently Relevant to Health Maintenance Results * HPV HIGH RISK (08/26/2022 11:45 AM CDT) TYPE 16 Negative Negative 08/28/2022 2:01 PM CDT [facility] TYPE 18 Negative Negative 08/28/2022 2:01 PM CDT [facility] OTHER HIGH RISK TYPES Negative Negative 08/28/2022 2:01 PM CDT [facility] Other (Cervical) 08/26/2022 11:45 AM CDT 08/26/2022 6:00 PM CDT Narrative [facility] - 08/28/2022 2:01 PM CDT HPV types 16, 18, 31, 33, 35, 39, 45, 51, 52, 56, 58, 59, 66 and 68 DNA were undetectable or below the pre-set threshold. Methodology: Becca Lucina 4800 HPV Test us Taylor Nassar MD MICROBIOLOGY Fi nal Result [facility] [address] [place] [address], [place] from Last 3 Months or Most Recently Relevant to Health Maintenance Insurance [facility] Care Teams Clinical Pharmacist Relationship Specialty Start [place] [address] [place] [address] PCP - General Physician Adult And Pediatric Neurologist 05/13/23
--- OUTSIDE RECORDS SUMMARY | 2024-10-12 11:00 | XMS_ITS | Clinical Summary ---
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 Gender Identity Not on file Sexual Orientation Not on file Last Filed Vital Signs Vital Sign Reading Time Taken Comments Blood Pressure 106/84 06/25/2021 10:22 AM MAIL DISTRIBUTOR Pulse 75 06/25/2021 10:22 AM MAIL DISTRIBUTOR Temperature 36.8 C (98.3 F) 06/25/2021 10:22 AM MAIL DISTRIBUTOR Respiratory Rate 16 06/25/2021 10:22 AM MAIL DISTRIBUTOR Oxygen Saturation 98% 06/25/2021 10:22 AM MAIL DISTRIBUTOR Inhaled Oxygen Concentration - - Weight 84.4 kg (186 lb) 06/25/2021 10:22 AM MAIL DISTRIBUTOR Height 172.7 cm (5' 8) 06/25/2021 10:22 AM MAIL DISTRIBUTOR Body Mass Index 28.28 06/25/2021 10:22 AM MAIL DISTRIBUTOR Plan of Treatment Not on file Procedures Procedure Name Priority Date/Time Associated Diagnosis Comments ALT (EXTERNAL RESULT) Routine 09/20/2024 8:31 AM CDT AST (EXTERNAL RESULT) Routine 09/20/2024 8:31 AM CDT CREATININE (EXTERNAL RESULT) Routine 09/20/2024 8:31 AM CDT LAB RESULT - HIM SCAN 09/20/2024 12:00 AM CDT from Last 3 Months Results * Creatinine (External Result) (09/20/2024 8:31 AM CDT) Creatinine (External) 0.700 0.500 - 1.050 mg/dL [facility] KATHARINA Blood 09/20/2024 8:31 AM CDT Narrative [facility] - 09/20/2024 8:31 AM CDT [facility]- External Lab Results us Provider Outside LAB - HIM EXTERNAL RESULT Final Result Performing Organization Address City/[facility]/ZIP Co de Phone Number [facility] [address] [place] [address], [facility] [phone] * (ABNORMAL) AST (External Result) (09/20/2024 8:31 AM CDT) AST (External) 43(A) 10 - 35 U/L [facility] KATH[facility]INA Blood 09/20/2024 8:31 AM CDT Narrative [facility] - 09/20/2024 8:31 AM CDT [facility] External Lab Results us Provider Outside LAB - HIM EXTERNAL RESULT Final Result [facility] [address] [place] [address], [facility] [phone] * (ABNORMAL) ALT (External Result) (09/20/2024 8:31 AM CDT) ALT (External) 66(A) 6 - 32 IU/L [facility] Blood 09/20/2024 8:31 AM CDT Narrative [facility] - 09/20/2024 8:31 AM CDT [facility] External Lab Results us Provider Outside LAB - HIM EXTERNAL RESULT Edite d Result - Final [facility]INA [address] [place] [address], [facility] [phone] * Lab Result - HIM Scan (09/20/2024 12:00 AM CDT) 09/20/2024 us Provider Outside NON-BEAKER LAB TESTING Final Result from Last 3 Months Insurance [facility]
--- OUTSIDE RECORDS SUMMARY | 2024-10-12 11:01 | XMS_ITS | Encounter Summary ---
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
--- NOTE | 2024-10-12 11:31 | CRLHL7_ITS ---
For Patients: As a result of the Century Cures Act, medical imaging exams and procedure reports are released immediately into your electronic medical record. You may view this report before your referring provider. If you have questions, please contact your health care provider. INDICATION: RLQ pain. TECHNIQUE: CT abdomen and pelvis acquired with 80 cc Isovue 370 IV contrast. COMPARISON: CT abdomen pelvis dated 01/27/2024. FINDINGS: Lower chest: Unremarkable Liver: Few scattered subcentimeter hypodensities, too small to characterize. Mild focal fatty infiltration along the falciform ligament. Otherwise, unremarkable. Gallbladder and bile ducts: Unremarkable. No stones or inflammation. No biliary dilatation. Pancreas: Unremarkable. No mass or inflammation. Spleen: Unremarkable. Normal in size. No masses. Adrenal glands: Unremarkable. No nodules. Kidneys: Unremarkable. No suspicious masses, stones, or hydronephrosis. GI tract: Unremarkable. Normal in caliber. No sign of mass or inflammation. Normal appendix. Vasculature: Abdominal aorta is normal in caliber. Mesenteric arteries are patent. Lymph nodes: No lymphadenopathy. Peritoneum/Abdominal Wall: There is mild fat stranding along the dependent right paracolic gutter. No intraperitoneal free air or fluid collection. Small fat containing umbilical hernia. Pelvis: New right ovarian cystic focus with mild peripheral enhancement, the previously evident left ovarian cystic focus is no longer visualized. Hysterectomy. Bones: Unremarkable for age. IMPRESSION: 1. There are mild inflammatory changes in the right paracolic gutter, which are nonspecific, but may be related to the 3.0 cm right ovarian cystic focus with mild peripheral enhancement, likely reflecting a dominant follicle in this age group. Overall, these findings may reflect an impending ovarian follicle rupture. 2. While these changes are in close proximity to the cecum and ascending colon, there are no other findings to suggest bowel inflammation. Please note that all CT scans at this facility use dose modulation, iterative reconstruction, and/or weight-based dosing when appropriate to reduce radiation dose to as low as reasonably achievable. Dictated by Jamshid Adams MD @ 10/12/2024 12:30:06 PM (Electronically Signed)
--- NOTE | 2024-10-12 11:32 | ED_ITS ---
HPI - Abdominal Pain General Chief Complaint: Abdominal Pain Stated Complaint: right side abdominal pain Time Seen by Provider: 10/12/24 11:10 History of Present Illness HPI narrative: This 34-year-old female comes in reporting right lower quadrant abdominal pain that began yesterday. She states that she did go to a clinic appointment yesterday and was recommended to have a CT scan. She states that the pain is constant. She has not eaten because she has lost her appetite. She does not report any fevers, nausea, vomiting, diarrhea, or dysuria symptoms. I see in her past medical history that she has a history of endometriosis determined by laparoscopy. She has had a hysterectomy. She also has a past history of rheumatoid arthritis. Related Data Home Medications ?Medication ?Instructions ?Recorded ?Confirmed multivitamin (Multiple Vitamins 1 tab PO QAM 07/16/22 10/12/24 tablet) methotrexate sodium 2.5 mg tablet 15 mg PO QWEEK 06/16/23 10/12/24 prednisone 5 mg tablet mg PO 10/11/24 10/11/24 Previous Rx's ?Medication ?Instructions ?Recorded bupropion HCl 300 mg 24 hr tablet, 300 mg PO QAM #90 tabs 06/20/24 extended release (Wellbutrin XL) propranolol 10 mg tablet 10 mg PO TID PRN anxiety #180 tabs 06/20/24 elagolix 150 mg tablet (Orilissa) 150 mg PO DAILY #84 tabs 08/08/24 ketorolac 10 mg tablet 10 mg PO TID 5 days #15 tabs 10/12/24 Allergies Allergy/AdvReac Type Severity Reaction Status Date / Time No Known Drug Allergies Allergy Verified 10/12/24 11:06 Review of Systems Status of ROS Reports: 10 or more systems reviewed and unremarkable except as noted in History and below Narrative Constitutional: No fevers, no weight gain or loss. Eyes: No discharge. No vision changes. HENT: No congestion, no sore throat, no ear pain. Cardiovascular: No chest pain, no palpitations. Respiratory: No shortness of breath, no wheezes, no cough. Gastrointestinal: No Abdominal pain as described above. vomiting, no diarrhea. Genitourinary: No dysuria, no hematuria. Musculoskeletal: Normal range of motion. Skin: No rashes, no pruritis. Neurological: No dizziness, weakness, sensory change, speech change. Endo/Heme/Allergies: No bruising or bleeding. No polydipsia. Pysch: no suicidality, no anxiety, no insomnia. All other systems reviewed and are negative. [facility] Medical History (Updated 10/12/24 @ 12:52 by Abhinav Rojas MD) Abdominal pain ?R10.9 - Unspecified abdominal pain (ICD-10) Endometriosis determined by laparoscopy (09/28/23) ?N80.9 - Endometriosis, unspecified (ICD-10) Atrial fibrillation ?I48.91 - Unspecified atrial fibrillation (ICD-10) Abscess after procedure ?T81.49XA - Infection following a procedure, other surgical site, initial encounter (ICD-10) Surgical History Status post laparoscopic hysterectomy (09/28/23) ?Z90.710 - Acquired absence of both cervix and uterus (ICD-10) S/P section (12/15/16) ?Z98.891 - History of uterine scar from previous surgery (ICD-10) Family History Mother Breast cancer Paternal Grandmother Dementia Paternal Grandfather Bone cancer Lung cancer Social History Narrative: Cis-gender, heterosexual woman. Relationship status: . Spouse/Partner: Ovi Education: Bachelor's degree Occupation: Salesperson [employer] Tobacco: Lifetime nonsmoker E-cigarettes: No Alcohol: Yes, 1 serving/week Illicit/recreational drugs: No Safety concerns at home or work: No Dietary restriction(s): No Exercise: Yes: Cardio exercise 3 days per week for at least 30 minutes per day. What is your current living situation?: I presently have a place to live Problems where you live: no known problems In the past 12 months, utilities in danger of being shut off: no In past 12 months, lack of transportation kept you from medical appts, meetings, work, or getting things needed for daily living: no In the past 12 mos, have been you worried that your food would run out before you had money to buy more?: never true In the past 12 mos, the food you bought just didn't last and you didn't have money to buy more?: never true Highest level of school completed/degree received: Bachelor's degree Smoking Status: Never smoker How often do you have a drink containing alcohol: monthly or less How many standard drinks containing alcohol do you have on a typical day: 1 or 2 How often do you have six or more drinks on one occasion: Never AUDIT-C Alcohol total score: 1 Non-prescribed substance use: denies use Caffeine: Yes How often does anyone, including family, friends and others, physically hurt you : never How often does anyone, including family, friends and others, insult or talk down to you: never How often does anyone, including family, friends and others, threaten you with harm: never How often does anyone, including family, friends and others, scream or curse at you: never service: No Exam Narrative: Exam Narrative: Constitutional: Well-developed, well-nourished, no acute distress. HEENT: Normocephalic, atraumatic. Neck: Normal range of motion. Nontender. Supple. Heart: Regular. No murmurs. Normal rate. Intact distal pulses. Lungs: Clear to auscultation. No chest discomfort. No wheezes, rhonchi, or rales. Abdomen: Decreased bowel sounds. Rovsing sign is negative. Tenderness at McBurney's point is present. [id number]-bk-[id number] rebound tenderness. Genitalia: Deferred. Back: No midline tenderness. Normal range of motion. Extremities: Normal range of motion. No injury. Skin: Intact. No rash. Warm. No erythema or pallor. Neurologic: No altered sensation. No weakness. Alert and oriented. Psychiatric: No suicidality. No anxiety or depression. No insomnia. Nursing notes and vitals signs are reviewed. Const: Vital Signs, click to edit/add: Vital Signs - 24 hr 10/12/24 11:08 Temperature 99.0 F Pulse Rate [Pulse Oximeter] 82 Respiratory Rate 16 Blood Pressure [Ri ght Upper Arm] 136/92 H Pulse Oximetry 98 Oxygen Delivery Me thod Room Air Course Vital Signs Vital signs: Initial Vital Signs Temperature 99.0 F 10/12/24 11:08 Temperature Source Temporal Artery Scan 10/12/24 11:08 Pulse Rate 82 10/12/24 11:08 Respiratory Rate 16 10/12/24 11:08 Blood Pressure 136/92 H 10/12/24 11:08 Blood Pressure Mean 106 H 10/12/24 11:08 Pulse Oximetry 98 10/12/24 11:08 Oxygen Delivery Method Room Air 10/12/24 11:08 Vital Signs Temperature 99.0 F 10/12/24 11:08 Pulse Rate 82 10/12/24 11:08 Respiratory Rate 16 10/12/24 11:08 Blood Pressure 136/92 H 10/12/24 11:08 Pulse Oximetry 98 10/12/24 11:08 Oxygen Delivery Method Room Air 10/12/24 11:08 Temperature 99.0 F 10/12/24 11:08 Pulse Rate 82 10/12/24 11:08 Respiratory Rate 16 10/12/24 11:08 Blood Pressure 136/92 H 10/12/24 11:08 Pulse Oximetry 98 10/12/24 11:08 Oxygen Delivery Method Room Air 10/12/24 11:08 MDM - Abdominal Pain MDM Narrative Medical decision making narrative: This patient comes in with right lower quadrant abdominal pain as described above. She does arrive here with normal vital signs. A CT scan of the abdomen and pelvis is obtained. Lab results returned with all normal findings. Additionally the CT scan shows no other findings except for a 3 cm ovarian cyst on the right side that likely is causing her symptoms. She is okay to be discharged home and did receive a prescription for Toradol. I advised her to follow-up with OBGYN clinic if not improving or return if worsening. Lab Data Labs: Lab Results 10/12/24 Range/Units Unknown WBC 5.63 (4.50-11.00) K/uL RBC 4.74 (4.00-5.20) m/uL Hgb 14.3 (12.0-16.0) gm/dL Hct 42.3 (33.0-51.0) % MCV 89 (80-100) fL MCH 30 (26-34) pg MCHC 34 (32-36) gm/dL RDW Coeff of Lianna 12.5 (11.5-15.5) % Plt Count 267 (140-440) K/uL Neut % (Auto) 57.2 (42.0-72.0) % Lymph % (Auto) 32.0 (20-44) % [place] % (Auto) 9.6 (0.0-11.0) % Eos % (Auto) 0.5 (0.0-7.0) % Baso % (Auto) 0.5 (0.0-3.0) % Neut # (Auto) 3.22 (1.7-7.0) K/uL Lymph # (Auto) 1.80 (0.90-2.90) K/uL [place] # (Auto) 0.50 (0.00-0.90) K/UL Eos # (Auto) 0.03 (0.00-0.50) K/uL Baso # (Auto) 0.03 (0.00-0.30) K/uL Abs Immat Gran (auto) 0.01 (0.00-0.30) K/uL Imm/Tot Granulo (auto) 0.2 % Sodium 141 (135-149) mmol/L Potassium 3.9 (3.6-5.1) mmol/L Chloride 102 (96-114) mmol/L Carbon Dioxide 27 (20-32) mmol/L Anion Gap 12 (7-15) mEq/L BUN 11 (5-24) mg/dL Creatinine 0.8 (0.5-1.5) mg/dL Estimated Creat Clear 95.45 Estimated GFR 98 ml/min Glucose 95 (60-115) mg/dL Calcium 9.5 (8.4-10.6) mg/dL Discharge Plan Discharge Clinical Impression: Ovarian cyst Patient Disposition: Home, Self-Care Condition: Stable Additional Instructions: take medication as needed and directed. Okay to use Tylenol also according to directions. Follow-up with OBGYN clinic or return if worsening. Prescriptions: New ketorolac 10 mg tablet 10 mg PO TID 5 Days Qty: 15 0RF No Action methotrexate sodium 2.5 mg tablet 15 mg PO QWEEK prednisone 5 mg tablet PO multivitamin [Multiple Vitamins] Tablet 1 tab PO QAM bupropion HCl [Wellbutrin XL] 300 mg tablet extended release 24 hr 300 mg PO QAM Qty: 90 1RF propranolol 10 mg tablet 10 mg PO TID PRN (Reason: anxiety) Qty: 180 1RF Orilissa 150 mg tablet 150 mg PO DAILY Qty: 84 3RF Follow Up/Referrals: Magy Vaca MD [Primary Care Provider] - Stand Alone Forms: MyHealth Info Instructions
--- OUTSIDE RECORDS SUMMARY | 2024-10-12 11:45 | XMS_ITS | Clinical Summary ---
Author Organization [facility] Address [address] [place] [id number] Care Team Providers Care Vp Corporate Development Name Role Phone Valeria Vargas Primary Care [...] Immunization Administration Dates Next Due COVID-19 vaccine ([employer] 30mcg/0.3mL) GONZALO Calvert 09/18/2020,08/24/2020 Family History Medical History Relation Name Comments Good Health Father No Known Problems Maternal Grandfather No Known Problems Maternal Grandmother Cancer-breast Mother Bone cancer Paternal Grandfather [place]; s tarted as Bone? 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 file Not on file Not [...] 08/27/2027 , 08/26/2022, 05/21/2020 ([facility]) Procedures Procedure Name Priority Date/Time Associated Diagnosis Comments HPV HIGH RISK Routine 08/26/2022 11:45 AM CDT from Last 3 Months or Most Recently Relevant to Health Maintenance Results * HPV HIGH RISK (08/26/2022 11:45 AM CDT) TYPE 16 Negative Negative 08/28/2022 2:01 PM CDT [facility] TYPE 18 Negative Negative 08/28/2022 2:01 PM CDT [facility] OTHER HIGH RISK TYPES Negative Negative 08/28/2022 2:01 PM CDT [facility] Other (Cervical) 08/26/2022 11:45 AM CDT 08/26/2022 6:00 PM CDT Narrative [facility] - 08/28/2022 2:01 PM CDT HPV types 16, 18, 31, 33, 35, 39, 45, 51, 52, 56, 58, 59, 66 and 68 DNA were undetectable or below the pre-set threshold. Methodology: Becca Lucina 4800 HPV Test us Taylor Nassar MD MICROBIOLOGY Fi nal Result [facility] [address] [place] [address], [place] from Last 3 Months or Most Recently Relevant to Health Maintenance Insurance [facility] Care Teams Vp Corporate Development Relationship Specialty Start [place] [address] [place] [address] PCP - General Physician Harvest Manager 05/13/23
--- OUTSIDE RECORDS SUMMARY | 2024-10-12 11:45 | XMS_ITS | Clinical Summary ---
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 Gender Identity Not on file Sexual Orientation Not on file Last Filed Vital Signs Vital Sign Reading Time Taken Comments Blood Pressure 106/84 06/25/2021 10:22 AM MANAGER STRATEGIC MARKETING Pulse 75 06/25/2021 10:22 AM MANAGER STRATEGIC MARKETING Temperature 36.8 C (98.3 F) 06/25/2021 10:22 AM MANAGER STRATEGIC MARKETING Respiratory Rate 16 06/25/2021 10:22 AM MANAGER STRATEGIC MARKETING Oxygen Saturation 98% 06/25/2021 10:22 AM MANAGER STRATEGIC MARKETING Inhaled Oxygen Concentration - - Weight 84.4 kg (186 lb) 06/25/2021 10:22 AM MANAGER STRATEGIC MARKETING Height 172.7 cm (5' 8) 06/25/2021 10:22 AM MANAGER STRATEGIC MARKETING Body Mass Index 28.28 06/25/2021 10:22 AM MANAGER STRATEGIC MARKETING Plan of Treatment Not on file Procedures [...] EXTERNAL RESULT Final Result Performing Organization Address City/[facility]/ZIP Co de Phone Number [facility] [address] [place] [address], [facility] [phone] * (ABNORMAL) AST (External Result) (09/20/2024 8:31 [...] [facility] [address] [place] [address], [facility] [phone] * (ABNORMAL) ALT (External Result) (09/20/2024 8:31 [...] [facility] [address] [place] [address], [facility] [phone] * Lab Result - HIM Scan (09/20/2024 12:00 AM CDT) 09/20/2024 us Provider Outside NON-BEAKER LAB TESTING Final Result from Last 3 Months Insurance [facility]
--- OUTSIDE RECORDS SUMMARY | 2024-10-12 11:45 | XMS_ITS | Encounter Summary ---
Author Organization [facility] Address [address] [place] [id number] Care Team Providers Care Residential Sales Executive Name Role Phone Diego Castañeda MD Unavailable Encounter Details Date Type Department Care Team (Late st Contact Info) Description 06/29/2024 Orders Only [facility] [address] [id number] Hayder Pennington MD [facility] [address] 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
[2024-10-12 12:12] LABS: Basophils Absolute Auto 0.03 K/uL (0.00-0.30); Basophils Percent Auto 0.5 % (0.0-3.0); Eosinophils Absolute Auto 0.03 K/uL (0.00-0.50); Eosinophils Percent Auto 0.5 % (0.0-7.0); Hematocrit 42.3 % (33.0-51.0); Hemoglobin* 14.3 gm/dL (12.0-16.0); Immature Granulocytes Abs Auto 0.01 K/uL (0.00-0.30); Immature Granulocytes Pct Auto 0.2 %; Mean Corpuscular HGB Conc 34 gm/dL (32-36); Mean Corpuscular Hemoglobin 30 pg (26-34); Mean Corpuscular Volume 89 fL (80-100); Monocytes Percent Auto 9.6 % (0.0-11.0); Neutrophils Absolute Auto 3.22 K/uL (1.7-7.0); Neutrophils Percent Auto 57.2 % (42.0-72.0); Platelet Count* 267 K/uL (140-440); RDW Coefficient of Variation % 12.5 % (11.5-15.5); Red Blood Count 4.74 m/uL (4.00-5.20); White Blood Count* 5.63 K/uL (4.50-11.00)
[2024-10-12 12:15] LABS: Slide Review Reflex No
[2024-10-12 12:20] LABS: Chloride* 102 mmol/L (96-114); Potassium* 3.9 mmol/L (3.6-5.1); Sodium* 141 mmol/L (135-149)
[2024-10-12 12:23] LABS: Anion Gap 12 mEq/L (7-15); Blood Urea Nitrogen* 11 mg/dL (5-24); Calcium* 9.5 mg/dL (8.4-10.6); Carbon Dioxide* 27 mmol/L (20-32); Creatinine* 0.8 mg/dL (0.5-1.5); Est. Creatinine Clearance* 95.45; Estimated Glomerular Filt Rate 98 ml/min; Glucose* 95 mg/dL (60-115)
== END 2024-10-12 13:01 | disposition home or self-care (01) ==
PROVIDERS: Emergency Provider Emergency Medicine Emergency Medical Services; PCP Family Medicine
DX: N83.201 Unspecified ovarian cyst, right side (principal); R63.0 Anorexia
CPT/HCPCS: 36415; 74177; 80048; 85025; 99284; 99285; Q9967

== ENCOUNTER 2025-03-27 09:58 | Outpatient (CLI) | payer BC, SELFPAY | END 2025-03-27 09:59 | disposition home or self-care (01) | PROVIDERS: PCP Family Medicine; Visit Provider Family Medicine | DX: Z00.00 Encounter for general adult medical examination without abnormal findings (principal); N80.9 Endometriosis, unspecified | CPT/HCPCS: 80053; 80061; 82671; 84439; 84443; 86803 ==